=== PATIENT | female | born 1965 | race African-American/Black ===

== ENCOUNTER 2018-02-23 10:15 | Inpatient (IN) ==
[2018-02-23] MEDS ORDERED: Ondansetron 4 MG/2 ML VIAL IVP ONE (10:51)
[2018-02-23] MEDS ORDERED: *HR* FentaNYL (PF) 100 MCG/2 ML VIAL IVP ONE (10:51)
--- NOTE | 2018-02-23 11:07 | Emergency Department Note ---
Disposition Clinical Impression: Pancreatic mass Pancreatitis Qualifiers: Chronicity: acute Pancreatitis type: unspecified pancreatitis type Acute pancreatitis complication: unspecified Qualified Code(s): K85.90 - Acute pancreatitis without necrosis or infection, unspecified Disposition: Admitted As Inpatient Condition: Fair Time of Disposition: 12:42 General Adult HPI - General Chief complaint: ED Abdominal Pain Stated complaint: "abd pain,L flank pain" Time Seen by Provider: 02/23/18 10:45 Source: patient Limitations: no limitations Nursing Notes Reviewed: Yes Vital Signs Reviewed: Yes - History of Present Illness HPI Narrative: ED ATTESTATION NOTE: I examined this patient and my medical decision-making was reviewed with the Resident Physician/INSPECTOR FUEL HOSE/PA/Student. I have personally performed a face to face evaluation on this patient & I agree with the documented findings, disposition and treatment plan as described except to the extent set forth below. Patient was seen with emergency medicine resident Yazmin Johnson please see copy of her note for details of this encounter Briefly: Pain Scale: 3 - Related Data Home Medications Medication Instructions Recorded Confirmed Albuterol Sulfate [Ventolin Hfa] 2 puff IH Q4H PRN 11/01/16 12/22/16 Ergocalciferol (VITAMIN D2) 50,000 unit PO QWEEK 11/01/16 12/22/16 [Vitamin D2] Levothyroxine [Synthroid] 100 mcg PO 0630 11/01/16 12/22/16 Lisinopril [Zestril] 10 mg PO DAILY 11/01/16 12/22/16 Methocarbamol [Robaxin] 325 mg PO Q8HR 11/01/16 12/22/16 Ibuprofen [Motrin] 600 mg PO Q6HR PRN 12/22/16 12/22/16 Lidocaine Patch [Lidoderm 5% patch] 1 patch TP DAILY 12/22/16 12/22/16 Polyethylene Glycol 3350 [MiraLAX] 17 gm PO DAILY 12/22/16 12/22/16 Simvastatin [Zocor] 40 mg PO HS 12/22/16 12/22/16 Allergies Allergy/AdvReac Type Severity Reaction Status Date / Time Amoxicillin [From Augmentin] Allergy Rash Verified 12/22/16 07:13 clavulanic acid Allergy Rash Verified 12/22/16 07:13 [From Augmentin] morphine Allergy See Verified 02/23/18 12:40 Comments Past Medical History - Past Medical History Medical history: Reports: GERD, hyperlipidemia, hypertension, thyroid disease Surgical history: Reports: appendectomy, orthopedic, other Psychiatric history: Reports: anxiety, depression - Social History Smoking Status: Current every day smoker Smokeless Tobacco Status: No Alcohol use: Reports: none Drug use: Reports: none Physical Exam - General Limitations: no limitations General appearance: alert, in no apparent distress Course Vital Signs Temperature 98.4 F 02/23/18 10:24 Pulse Rate 85 02/23/18 10:24 Respiratory Rate 18 02/23/18 10:24 Blood Pressure 137/89 02/23/18 10:24 O2 Sat by Pulse Oximetry 97 02/23/18 10:24 Temperature 98.4 F 02/23/18 10:49 Pulse Rate 63 02/23/18 12:21 Respiratory Rate 16 02/23/18 12:21 Blood Pressure 151/93 02/23/18 12:21 O2 Sat by Pulse Oximetry 100 02/23/18 12:21 Oxygen Delivery Oxygen Delivery Room Air Medical Decision Making - Lab Data Result diagrams: 02/23/18 11:00 02/23/18 11:00 Lab Results 02/23/18 02/23/18 02/23/18 Range/Units 10:38 11:00 11:00 WBC 7.1 (4.3-11.1) K/mcL RBC 4.69 (3.82-4.97) M/mcL Hgb 14.1 (11.5-15.4) g/dL Hct 42.0 (35.3-44.9) % MCV 89.6 (83.0-100.0) fL MCH 30.1 (28.0-33.3) pg MCHC 33.6 (31.6-35.5) g/dL RDW 12.4 (11.5-14.5) % Plt Count 243 (140-400) K/mcL MPV 9.7 (9.4-12.4) fL Immature Gran % 0.3 (0-4) % Seg Neutrophils % 46.1 % Lymphocytes % 42.6 % Monocytes % 6.1 % Eosinophils % 3.8 % Basophils % 1.1 % Neutrophils # 3.3 (1.6-8.9) K/mcL Lymphocytes # 3.0 (0.6-4.6) K/mcL Monocytes # 0.4 (0.0-1.3) K/mcL Eosinophils # 0.3 (0.0-0.6) K/mcL Basophils # 0.1 (0.0-0.2) K/mcL Sodium 138 (136-145) mEq/L Potassium 3.5 (3.5-5.1) mEq/L Chloride 107 (98-107) mEq/L Carbon Dioxide 26 (23-29) mEq/L BUN 9 (6-20) mg/dL Creatinine 0.61 (0.60-1.20) mg/dL Est GFR ( Amer) > 60 (> 60) Est GFR (Non-Af Amer) > 60 (> 60) BUN/Creatinine Ratio 15 (6-26) Glucose 152 H (70-105) mg/dL Calculated Osmolality 288 (280-300) Calcium 8.6 (8.6-10.3) mg/dL Total Bilirubin 0.5 (0.3-1.0) mg/dL Direct Bilirubin 0.1 (0.0-0.2) mg/dL Indirect Bilirubin 0.4 (0.0-1.2) mg/dL AST 12 L (13-39) Units/L ALT 12 (7-52) Units/L Alkaline Phosphatase 112 H (34-104) Units/L Troponin I < 0.03 (< 0.04) ng/mL Serum Total Protein 7.1 (6.4-8.9) g/dL Albumin 3.9 (3.5-5.7) g/dL Globulin 3.2 (2.4-3.5) g/dL Albumin/Globulin Ratio 1.2 (1.1-2.2) Lipase 107 H (11-82) Units/L Urine Color Yellow (Yellow) Urine Clarity Hazy A (Clear) Urine pH 5.5 (5.0-8.0) pH Units Ur Specific [place] 1.014 (1.010-1.025) Urine Protein Negative (Neg-Trace) mg/dL Urine Glucose (UA) Normal (Normal) mg/dL Urine Ketones Negative (Negative) mg/dL Urine Blood Small H (Negative) Urine Nitrite Negative (Negative) Urine Bilirubin Negative (Negative) Urine Urobilinogen Normal (Normal) mg/dL Ur Leukocyte Esterase Negative (Negative) Urine Microscopic RBC 0-3 (0-3) per hpf Urine Microscopic WBC 3-5 H (0-3) per hpf Ur Squamous Epith Cells Many H (None-Few) per lpf Urine Bacteria Few (None-Few) per hpf Hyaline Casts None Seen (None-Few) per lpf Urine Mucus Moderate H (Few) Urine Yeast Few H (None Seen) per hpf Ur Culture Indicated? NO (NO)
[2018-02-23 11:17] LABS: Basophils # 0.1 K/mcL (0.0-0.2); Basophils % 1.1 %; Eosinophils # 0.3 K/mcL (0.0-0.6); Eosinophils % 3.8 %; Hemoglobin 14.1 g/dL (11.5-15.4); Immature Granulocytes % 0.3 % (0-4); Lymphocytes % 42.6 %; Mean Corpuscular HGB Conc 33.6 g/dL (31.6-35.5); Mean Corpuscular Hemoglobin 30.1 pg (28.0-33.3); Mean Corpuscular Volume 89.6 fL (83.0-100.0); Mean Platelet Volume 9.7 fL (9.4-12.4); Monocytes # 0.4 K/mcL (0.0-1.3); Monocytes % 6.1 %; Neutrophils # 3.3 K/mcL (1.6-8.9); Platelet Count 243 K/mcL (140-400); Red Blood Count 4.69 M/mcL (3.82-4.97); Red Cell Distribution Width 12.4 % (11.5-14.5); Segmented Neutrophils % 46.1 %
--- NOTE | 2018-02-23 11:17 | Emergency Department Note ---
Disposition Clinical Impression: Pancreatic mass Pancreatitis Qualifiers: Chronicity: acute Pancreatitis type: unspecified pancreatitis type Acute pancreatitis complication: unspecified Qualified Code(s): K85.90 - Acute pancreatitis without necrosis or infection, unspecified Disposition: Admitted As Inpatient Condition: Fair Referrals: Rahul Yo MD [Primary Care Provider] - Forms: ED Satisfaction Letter, Work/School Release General Adult HPI - General Chief complaint: ED Abdominal Pain Stated complaint: "abd pain,L flank pain" Time Seen by Provider: 02/23/18 10:45 Source: patient Mode of arrival: ambulatory Limitations: no limitations Nursing Notes Reviewed: Yes Vital Signs Reviewed: Yes - History of Present Illness HPI Narrative: 52-year-old female with significant past medical history of hypertension presenting to the emergency department chief complaint of left-sided abdominal pain. Patient states for the past year she has had worsening left-sided abdominal pain that radiates under her left breast and towards her epigastrium. She denies any vomiting but does disclose nausea. Patient denies any changes in her stool caliber but does state they have been darker than normal. Patient has had an appendectomy but no other abdominal surgeries. Colonoscopy 7 years ago multiple polyp removal but they were all noncancerous. Patient states today the pain is got too severe and decided to come in for further evaluation. Patient denies any fevers, chest pain or shortness of breath. Patient does disclose a 32 pound weight loss over the past few months. Pain Scale: 3 - Related Data Home Medications Medication Instructions Recorded Confirmed Albuterol Sulfate [Ventolin Hfa] 2 puff IH Q4H PRN 11/01/16 12/22/16 Ergocalciferol (VITAMIN D2) 50,000 unit PO QWEEK 11/01/16 12/22/16 [Vitamin D2] Levothyroxine [Synthroid] 100 mcg PO 0630 11/01/16 12/22/16 Lisinopril [Zestril] 10 mg PO DAILY 11/01/16 12/22/16 Methocarbamol [Robaxin] 325 mg PO Q8HR 11/01/16 12/22/16 Ibuprofen [Motrin] 600 mg PO Q6HR PRN 12/22/16 12/22/16 Lidocaine Patch [Lidoderm 5% patch] 1 patch TP DAILY 12/22/16 12/22/16 Polyethylene Glycol 3350 [MiraLAX] 17 gm PO DAILY 12/22/16 12/22/16 Simvastatin [Zocor] 40 mg PO HS 12/22/16 12/22/16 Allergies Allergy/AdvReac Type Severity Reaction Status Date / Time Amoxicillin [From Augmentin] Allergy Rash Verified 12/22/16 07:13 clavulanic acid Allergy Rash Verified 12/22/16 07:13 [From Augmentin] morphine Allergy Hives Verified 11/01/16 11:30 All systems ED: reviewed and negative except as stated. Constitutional: Reports: weight change. Denies: fever, chills Eyes: Reports: as per HPI ENT ED: Reports: as per HPI Cardiovascular: Denies: chest pain, palpitations, dyspnea on exertion Respiratory: Denies: cough, dyspnea, wheezes Gastrointestinal: Reports: abdominal pain, nausea. Denies: vomiting Genitourinary: Reports: as per HPI Musculoskeletal: Reports: as per HPI Integumentary: Reports: as per HPI Neurological: Denies: numbness, paresthesias Psychiatric: Reports: as per HPI Endocrine: Reports: as per HPI Hematological/Lymphatic: Reports: as per HPI Allergic/Immunologic: Reports: as per HPI Past Medical History - Past Medical History Attestation: Yes The following information was validated with the patient. Medical history: Reports: GERD, hyperlipidemia, hypertension, thyroid disease Surgical history: Reports: appendectomy, orthopedic, other Psychiatric history: Reports: anxiety, depression - Social History Smoking Status: Current every day smoker Smokeless Tobacco Status: No Alcohol use: Reports: none Drug use: Reports: none Physical Exam - General Limitations: no limitations General appearance: alert, in no apparent distress - Head Head exam: atraumatic, normocephalic, normal inspection - Eye Eye exam: Present: normal appearance. Absent: scleral icterus, conjunctival injection - ENT ENT exam: normal exam, mucous membranes moist - Neck Neck exam: Present: normal inspection, full ROM. Absent: tenderness, meningismus - Chest Chest inspection: Present: normal inspection, symmetric chest wall rise. Absent: tenderness, rash - Respiratory Respiratory exam: Present: normal lung sounds bilaterally. Absent: respiratory distress, wheezes - Cardiovascular Cardiovascular exam: Present: regular rate, normal rhythm, normal heart sounds - Abdominal Exam Abdominal exam: Present: soft, tenderness. Absent: distention, guarding, rebound, rigidity Abdominal tenderness: Present: LUQ, epigastrium, moderate - Extremities Exam Extremities exam: Present: normal inspection, full ROM - Neurological Exam Neurological exam: Present: alert, oriented X3 - Psychiatric Psychiatric exam: Present: normal affect, normal mood - Skin Skin exam: Present: warm, intact Course Course Narrative: 52-year-old female presenting to the emergency department with chief complaint of abdominal pain. Patient is alert and oriented 3 and hemodynamically stable. Physical exam shows tenderness to the left upper quadrant into the epigastrium. Otherwise physical exam is benign. At this time we will provide the patient with pain relief and Zofran. We will perform abdominal labs including CBC, CMP and lipase. We will also perform a CT of the abdomen and pelvis. Disposition pending results. Patient agrees with this plan. - Reevaluation(s) Reevaluation #1: Patient's laboratory analysis shows elevated lipase at 107. Otherwise labs unchanged from baseline. CT of abdomen and pelvis shows Inflammatory changes are seen surrounding the pancreatic body and tail likely related to acute pancreatitis. There is also a spiculated nodular density seen just along the undersurface of the pancreatic body, new from the previous examination in 2017, measuring 15.8 x 16.6 mm. This may represent an enlarged lymph node with adjacent inflammatory change, as a very small lymph node was noted in that same region on the previous study. Due to patient's symptoms and concern for new mass and pancreatitis will plan to admit her for further evaluation and workup. Patient remains alert and oriented 3 and hemodynamically stable. Patient agrees with this plan. I spoke with the hospitalist secondary history teacher Dr. Sumner who agrees to accept the patient at this time. Vital Signs Temperature 98.4 F 02/23/18 10:24 Pulse Rate 85 02/23/18 10:24 Respiratory Rate 18 02/23/18 10:24 Blood Pressure 137/89 02/23/18 10:24 O2 Sat by Pulse Oximetry 97 02/23/18 10:24 Temperature 98.4 F 02/23/18 10:49 Pulse Rate 85 02/23/18 10:49 Respiratory Rate 18 02/23/18 10:49 Blood Pressure 137/89 02/23/18 10:49 O2 Sat by Pulse Oximetry 97 02/23/18 10:49 Oxygen Delivery Oxygen Delivery Room Air Medical Decision Making - Lab Data Result diagrams: 02/23/18 11:00 02/23/18 11:00 Lab Results 02/23/18 02/23/18 02/23/18 Range/Units 10:38 11:00 11:00 WBC 7.1 (4.3-11.1) K/mcL RBC 4.69 (3.82-4.97) M/mcL Hgb 14.1 (11.5-15.4) g/dL Hct 42.0 (35.3-44.9) % MCV 89.6 (83.0-100.0) fL MCH 30.1 (28.0-33.3) pg MCHC 33.6 (31.6-35.5) g/dL RDW 12.4 (11.5-14.5) % Plt Count 243 (140-400) K/mcL MPV 9.7 (9.4-12.4) fL Immature Gran % 0.3 (0-4) % Seg Neutrophils % 46.1 % Lymphocytes % 42.6 % Monocytes % 6.1 % Eosinophils % 3.8 % Basophils % 1.1 % Neutrophils # 3.3 (1.6-8.9) K/mcL Lymphocytes # 3.0 (0.6-4.6) K/mcL Monocytes # 0.4 (0.0-1.3) K/mcL Eosinophils # 0.3 (0.0-0.6) K/mcL Basophils # 0.1 (0.0-0.2) K/mcL Sodium 138 (136-145) mEq/L Potassium 3.5 (3.5-5.1) mEq/L Chloride 107 (98-107) mEq/L Carbon Dioxide 26 (23-29) mEq/L BUN 9 (6-20) mg/dL Creatinine 0.61 (0.60-1.20) mg/dL Est GFR ( Amer) > 60 (> 60) Est GFR (Non-Af Amer) > 60 (> 60) BUN/Creatinine Ratio 15 (6-26) Glucose 152 H (70-105) mg/dL Calculated Osmolality 288 (280-300) Calcium 8.6 (8.6-10.3) mg/dL Total Bilirubin 0.5 (0.3-1.0) mg/dL Direct Bilirubin 0.1 (0.0-0.2) mg/dL Indirect Bilirubin 0.4 (0.0-1.2) mg/dL AST 12 L (13-39) Units/L ALT 12 (7-52) Units/L Alkaline Phosphatase 112 H (34-104) Units/L Troponin I < 0.03 (< 0.04) ng/mL Serum Total Protein 7.1 (6.4-8.9) g/dL Albumin 3.9 (3.5-5.7) g/dL Globulin 3.2 (2.4-3.5) g/dL Albumin/Globulin Ratio 1.2 (1.1-2.2) Lipase 107 H (11-82) Units/L Urine Color Yellow (Yellow) Urine Clarity Hazy A (Clear) Urine pH 5.5 (5.0-8.0) pH Units Ur Specific [place] 1.014 (1.010-1.025) Urine Protein Negative (Neg-Trace) mg/dL Urine Glucose (UA) Normal (Normal) mg/dL Urine Ketones Negative (Negative) mg/dL Urine Blood Small H (Negative) Urine Nitrite Negative (Negative) Urine Bilirubin Negative (Negative) Urine Urobilinogen Normal (Normal) mg/dL Ur Leukocyte Esterase Negative (Negative) Urine Microscopic RBC 0-3 (0-3) per hpf Urine Microscopic WBC 3-5 H (0-3) per hpf Ur Squamous Epith Cells Many H (None-Few) per lpf Urine Bacteria Few (None-Few) per hpf Hyaline Casts None Seen (None-Few) per lpf Urine Mucus Moderate H (Few) Urine Yeast Few H (None Seen) per hpf Ur Culture Indicated? NO (NO)
[2018-02-23 11:26] LABS: Bilirubin,Urine Negative (Negative); Blood,Urine Small (Negative); Color,Urine Yellow (Yellow); Glucose,Urine (UA) Normal (Normal); Ketones,Urine Negative (Negative); Leukocyte Esterase,Urine Negative (Negative); Nitrite,Urine Negative (Negative); PH,Urine 5.5 pH Units (5.0-8.0); Protein,Urine Negative (Neg-Trace); Specific Gravity,Urine 1.014 (1.010-1.025); Urobilinogen,Urine Normal (Normal)
[2018-02-23 11:28] LABS: Bacteria,Urine Few per hpf (None-Few); Hyaline Casts,Urine None Seen per lpf (None-Few); Squamous Epithelial Cell,Urine Many per lpf (None-Few)
[2018-02-23 11:30] LABS: Clarity,Urine Hazy (Clear)
[2018-02-23 11:34] LABS: Troponin I < 0.03 ng/mL (< 0.04)
[2018-02-23 11:41] LABS: Alanine Aminotransferase 12 Units/L (7-52); Albumin 3.9 g/dL (3.5-5.7); Albumin/Globulin Ratio 1.2 (1.1-2.2); Alkaline Phosphatase 112 Units/L (34-104); Aspartate Amino Transferase 12 Units/L (13-39); BUN/Creatinine Ratio 15 (6-26); Bilirubin,Direct 0.1 mg/dL (0.0-0.2); Bilirubin,Indirect 0.4 mg/dL (0.0-1.2); Bilirubin,Total 0.5 mg/dL (0.3-1.0); Blood Urea Nitrogen 9 mg/dL (6-20); Calcium 8.6 mg/dL (8.6-10.3); Carbon Dioxide 26 mEq/L (23-29); Chloride 107 mEq/L (98-107); Globulin 3.2 g/dL (2.4-3.5); Glucose 152 mg/dL (70-105); Lipase 107 Units/L (11-82); Osmolality,Calculated 288 (280-300); Potassium 3.5 mEq/L (3.5-5.1); Sodium 138 mEq/L (136-145); Total Protein 7.1 g/dL (6.4-8.9); eGFR For Non-African Americans > 60 (> 60)
[2018-02-23 11:43] LABS: Mucus,Urine Moderate (Few)
[2018-02-23 11:44] LABS: RBC,Urine 0-3 per hpf (0-3); Yeast,Urine Few per hpf (None Seen)
[2018-02-23] MEDS ORDERED: Naloxone 0.4 MG/ML INJ IVP PRN (12:59)
[2018-02-23] MEDS ORDERED: Acetaminophen 325 MG TABLET PO PRN (12:59)
[2018-02-23] MEDS ORDERED: *HR* FentaNYL (PF) 100 MCG/2 ML VIAL IVP PRN (13:01)
[2018-02-23] MEDS: 0.9 % Sodium Chloride 1,000 ML IVC SCH ×2 (13:29→23:26)
--- NOTE | 2018-02-23 13:57 | Internal Med History&Physical ---
Date of Encounter: 02/23/18 Time of Encounter: 13:51 Internal Medicine - H&P: HPI Chief complaint: Abdominal pain Admitted From: Emergency Dept Plans for Post Hospital Care: Home History of present illness: Ms. Mendez is a 52 year old female with known past medical history of hypertension, hyperlipidemia, COPD, hypothyroidism, anxiety and chronic tobacco dependence patient presented to ER with 2 weeks history of progressive worsening abdominal pain located at hypogatric, left lateral side and radiating towards RUQ region. Her abdominal pain is sharp in nature, 7/10 in severity, continuous in nature, and associated with some nausea. She denied any recent weight loss. She denied any Hemetemesis / melena. She had a further workup done in the emergency room, her lipase slightly elevated at 107. Her CT of abdomen showed acute pancreatitis as well as a spiculated nodular density seen just along the undersurface of pancreatic body measuring @ 15.8 x 16.6 mm Past Med Surg Social Fam HX - Past Medical History Medical history: GERD, hyperlipidemia, hypertension, thyroid disease Additional medical history: Grave's Disease Psychiatric history: anxiety, depression - Past Surgical History Surgical History: appendectomy, orthopedic, other Additional surgical history: iodine tx to thyroid. polyps removed - Social History Smoking Status: Current every day smoker Smokeless Tobacco Status: No Alcohol use: none Drug use: none - Family History Mother Hx Family Cancer: Yes (Rectal cancer) - Additional Family History Additional family history: Family hsitory reviewed and non contribuitory to current problem... Denied any pancreatic cancer in the family Internal Medicine - H&P: Meds Albuterol Sulfate [Ventolin Hfa] 2 puff IH Q4H PRN 11/01/16 [History] Ergocalciferol (VITAMIN D2) [Vitamin D2] 50,000 unit PO FR 11/01/16 [History] Levothyroxine [Synthroid] 100 mcg PO 0630 11/01/16 [History] Lisinopril [Zestril] 10 mg PO DAILY 11/01/16 [History] Methocarbamol [Robaxin] 325 mg PO Q8HR 11/01/16 [History] Ibuprofen [Motrin] 600 mg PO Q6HR PRN 12/22/16 [History] Simvastatin [Zocor] 40 mg PO HS 12/22/16 [History] ALPRAZolam [Xanax 0.25 MG Tablet] 0.25 mg PO BID PRN 02/23/18 [History] Buspirone HCl [Buspar] 10 mg PO BID 02/23/18 [History] Allergy/AdvReac Type Severity Reaction Status Date / Time Amoxicillin [From Augmentin] Allergy Rash Verified 12/22/16 07:13 clavulanic acid Allergy Rash Verified 12/22/16 07:13 [From Augmentin] morphine Allergy See Verified 02/23/18 12:40 Comments All Systems PM: A 10-system review of systems was performed and is negative for pertinent findings except as documented above in the HPI. Review of systems: All the systems are reviewed everything is benign except the systems and symptoms I mentioned in the history of present illness - Constitutional Vitals: Temp Pulse Resp BP Pulse Ox 98.4 F 63 16 151/93 100 02/23/18 10:49 02/23/18 12:21 02/23/18 12:21 02/23/18 12:21 02/23/18 12:21 General appearance: Present: cooperative, A&O X 3, no acute distress, answers questions appropriately Exam: See below - Head Head exam: Present: atraumatic, normal inspection - Neck Neck exam general surgery: Present: supple - Respiratory Respiratory exam: Present: decreased breath sounds. Absent: rales, respiratory distress, rhonchi, wheezes - Cardiovascular Cardiovascular exam: Present: RRR, +S1, +S2. Absent: tachycardia - GI/Abdominal GI/Abdominal exam: Present: normal bowel sounds, soft, tenderness (Mild tenderness around Pery umbilical and epigastric region). Absent: rebound, rigid - Extremities Exam Extremities exam: Absent: calf tenderness, pedal edema, tenderness - Back Exam Back exam: Absent: CVA tenderness (L), CVA tenderness (R) - Neurological Exam Neurological exam: Present: alert, oriented X3 - Psychiatric Psychiatric exam: Present: normal affect, normal mood - Skin Skin exam: Absent: rash Internal Med - H&P Results - Labs CBC & Chem 7: 02/23/18 11:00 02/23/18 11:00 Labs: Short CBC 02/23/18 Range/Units 11:00 WBC 7.1 (4.3-11.1) K/mcL Hgb 14.1 (11.5-15.4) g/dL Hct 42.0 (35.3-44.9) % Plt Count 243 (140-400) K/mcL Neutrophils # 3.3 (1.6-8.9) K/mcL BMP 02/23/18 11:00 Sodium 138 Potassium 3.5 Chloride 107 Carbon Dioxide 26 BUN 9 Creatinine 0.61 Glucose 152 H Calcium 8.6 Cardiac Enzymes 02/23/18 Range/Units 11:00 Troponin I < 0.03 (< 0.04) ng/mL Liver Function 02/23/18 Range/Units 11:00 Total Bilirubin 0.5 (0.3-1.0) mg/dL Direct Bilirubin 0.1 (0.0-0.2) mg/dL AST 12 L (13-39) Units/L ALT 12 (7-52) Units/L Alkaline Phosphatase 112 H (34-104) Units/L Albumin 3.9 (3.5-5.7) g/dL Urine 02/23/18 Range/Units 10:38 Urine Color Yellow (Yellow) Urine Clarity Hazy A (Clear) Urine pH 5.5 (5.0-8.0) pH Units Ur Specific [place] 1.014 (1.010-1.025) Urine Protein Negative (Neg-Trace) mg/dL Urine Glucose (UA) Normal (Normal) mg/dL - Impressions ITS Impressions Abdomen/Pelvis CT 02/23/18 10:51 IMPRESSION: Inflammatory changes are seen surrounding the pancreatic body and tail likely related to acute pancreatitis. There is also a spiculated nodular density seen just along the undersurface of the pancreatic body, new from the previous examination in 2017, measuring 15.8 x 16.6 mm. This may represent an enlarged lymph node with adjacent inflammatory change, as a very small lymph node was noted in that same region on the previous study. Recommend a short interval follow-up CT examination after treatment for re-evaluation. It would be best to perform that CT scan with contrast. No other acute process identified in the abdomen or pelvis. D/ / Mitch Brice MD / Mitch Brice MD Interpreting Provider: Mitch Brice MD - Assessment and plan (1) Pancreatitis Current Visit: Yes Status: Acute Assessment and plan: Place the patient into Med Surg for observation reviewed her CT and lipase clear liquid diet for now IV hydration continue symptomatic and supportive care unclear etiology will check lipid profile in the morning MRI of the abdomen ordered G.I. consult trend on lipase Qualifiers: Chronicity: acute Pancreatitis type: unspecified pancreatitis type Acute pancreatitis complication: unspecified Qualified Code(s): K85.90 - Acute pancreatitis without necrosis or infection, unspecified (2) Pancreatic mass Current Visit: Yes Status: Acute Assessment and plan: Reviewed CT of abdomen small lymph node noticed around the pancreatic head area which is new compared to previous CT G.I. consult of further evaluation also ordered MRI of the abdomen (3) Hypertension Current Visit: Yes Status: Chronic Assessment and plan: Stable with current home medications resumed home medications Qualifiers: Hypertension type: essential hypertension Qualified Code(s): I10 - [place] l (primary) hypertension (4) Hyperlipidemia Current Visit: Yes Status: Acute Assessment and plan: Resumed home medication Statin Qualifiers: Hyperlipidemia type: unspecified Qualified Code(s): E78.5 - Hyperlipidemia, unspecified (5) Anxiety Current Visit: Yes Status: Acute Assessment and plan: Resumed home meds and Xanax (6) COPD (chronic obstructive pulmonary disease) Current Visit: Yes Status: Acute Assessment and plan: Not in exacerbation continue home inhalers Qualifiers: COPD type: emphysema Emphysema type: unspecified Qualified Code(s): J43.9 - Emphysema, unspecified (7) Tobacco dependence Current Visit: Yes Status: Acute Assessment and plan: Counseled to quit smoking placed on nicotine patch - Time Spent With Patient Total time spent is greater than 50% in coordination of care (as documented) at patient's floor/unit and/or counseling patient:
[2018-02-23] MEDS: Nicotine 14 MG PATCH.TD24 TD SCH (16:23)
[2018-02-23] MEDS ORDERED: D5% in Water 1,000 ML IVC PRN (18:50)
[2018-02-23] MEDS ORDERED: Dextrose Gel 15 GM/37.5 ML TUBE PO PRN ×2 (18:50)
[2018-02-23] MEDS ORDERED: *HR* Dextrose 50 % in Water (Syg) 50 ML SYRINGE IVP PRN (18:50)
[2018-02-23] MEDS ORDERED: Methocarbamol 750 MG TABLET PO PRN (19:50)
[2018-02-23] MEDS: Insulin LISPRO 300 UNITS/3 ML VIAL SQ SCH (20:44)
[2018-02-23] MEDS: Methocarbamol 750 MG TABLET PO PRN (20:47)
[2018-02-24] MEDS ORDERED: Methocarbamol 750 MG TABLET PO SCH
[2018-02-24 04:39] LABS: Basophils # 0.1 K/mcL (0.0-0.2); Basophils % 1.2 %; Eosinophils # 0.3 K/mcL (0.0-0.6); Eosinophils % 3.9 %; Hematocrit 40.1 % (35.3-44.9); Hemoglobin 13.3 g/dL (11.5-15.4); Immature Granulocytes % 0.1 % (0-4); Lymphocytes # 3.5 K/mcL (0.6-4.6); Mean Corpuscular HGB Conc 33.2 g/dL (31.6-35.5); Mean Corpuscular Hemoglobin 30.2 pg (28.0-33.3); Mean Corpuscular Volume 91.1 fL (83.0-100.0); Monocytes # 0.5 K/mcL (0.0-1.3); Monocytes % 6.8 %; Neutrophils # 3.3 K/mcL (1.6-8.9); Platelet Count 232 K/mcL (140-400); Red Cell Distribution Width 12.4 % (11.5-14.5)
[2018-02-24 04:47] LABS: Alanine Aminotransferase 11 Units/L (7-52); Albumin 3.5 g/dL (3.5-5.7); Albumin/Globulin Ratio 1.2 (1.1-2.2); Alkaline Phosphatase 100 Units/L (34-104); Aspartate Amino Transferase 12 Units/L (13-39); BUN/Creatinine Ratio 10 (6-26); Bilirubin,Total 0.6 mg/dL (0.3-1.0); Blood Urea Nitrogen 6 mg/dL (6-20); Calcium 8.1 mg/dL (8.6-10.3); Carbon Dioxide 25 mEq/L (23-29); Chloride 108 mEq/L (98-107); Chol/HDL Ratio 5.8 (0-4.9); Cholesterol 139 mg/dL (< 200); Globulin 2.9 g/dL (2.4-3.5); Glucose 149 mg/dL (70-105); HDL Cholesterol 24 mg/dL (40-59); LDL Cholesterol,Calculated 91 mg/dL (0-99); Magnesium 1.8 mg/dL (1.6-2.6); Osmolality,Calculated 286 (280-300); Potassium 3.5 mEq/L (3.5-5.1); Sodium 138 mEq/L (136-145); Total Protein 6.4 g/dL (6.4-8.9); Triglycerides 122 mg/dL (< 150); eGFR For Non-African Americans > 60 (> 60)
[2018-02-24] MEDS: Methocarbamol 750 MG TABLET PO PRN ×2 (05:49→18:04)
[2018-02-24] MEDS: *HR* Heparin 5,000 UNIT/ML VIAL SQ SCH ×2 (05:51→18:05)
[2018-02-24] MEDS: Insulin LISPRO 300 UNITS/3 ML VIAL SQ SCH ×3 (09:14→17:08)
[2018-02-24] MEDS: Nicotine 14 MG PATCH.TD24 TD SCH (09:20)
--- NOTE | 2018-02-24 10:39 | Internal Med Progress Note ---
Hospitalist Progress Note - Encounter Date of Encounter: 02/24/18 Time of Encounter: 10:37 - Subjective Interval History: Seen and examined at bedside today. Reports that nausea has resolved. However, she still continued to have abdominal pain in the epigastrium radiating to the right left upper quadrant. She is able to tolerate a clear liquid diet this morning. - Exam Vitals: Temp Pulse Resp BP Pulse Ox 98.1 F 73 17 156/79 96 02/24/18 07:21 02/24/18 07:21 02/24/18 07:21 02/24/18 07:21 02/24/18 07:21 Exam: PHYSICAL EXAMINATION: GENERAL: The patient obese -[place] female who is alert and oriented 3 no distress HEENT: Head is normocephalic and atraumatic. Extraocular muscles are intact. Pupils are equal, round, and reactive to light and accommodation. NECK: Supple. No carotid bruits. No lymphadenopathy or thyromegaly. LUNGS: Clear to auscultation B/L AP and L. HEART: Regular rate and rhythm, S1, S2 without murmur. ABDOMEN: Soft, and nondistended. Positive bowel sounds. No hepatosplenomegaly was noted. Tenderness along left upper quadrant and below left breast. EXTREMITIES: Without any cyanosis, clubbing, rash, lesions or edema. NEUROLOGIC: Cranial nerves II through XII are grossly intact. PSYCHIATRIC: Appropriate affect, denies SI/HI, without agitation or anxiety SKIN: No ulceration or induration present. - Assessment and Plan (1) Pancreatitis Current Visit: Yes Status: Acute Assessment and Plan: Place the patient into Med Surg for observation reviewed her CT and lipase Continue clear liquid diet for now Continue IV hydration Continue to treat nausea when necessary continue symptomatic and supportive care unclear etiology will check lipid profile in the morning MRI of the abdomen pending completion G.I. consult trend on lipase; initial lipase of 107, repeat 114, continue to trend (2) Pancreatic mass Current Visit: Yes Status: Acute Assessment and Plan: Reviewed CT of abdomen small lymph node noticed around the pancreatic head area Consider reactionary lymph node versus mass However,this is new compared to previous CT She does report a 20 pound weight loss over the course of 6-8 weeks as well as night sweats and nausea/vomiting G.I. consult of further evaluation also ordered MRI of the abdomen (3) Hypertension Current Visit: Yes Status: Chronic Assessment and Plan: Stable with current home medications Continue anti-HTN meds and monitor (4) Hyperlipidemia Current Visit: Yes Status: Acute Assessment and Plan: Continue statin (5) Anxiety Current Visit: Yes Status: Acute Assessment and Plan: Continuing anxiolytics (6) COPD (chronic obstructive pulmonary disease) Current Visit: Yes Status: Acute Assessment and Plan: Per history, Not in exacerbation continue home inhalers (7) Tobacco dependence Current Visit: Yes Status: Acute Assessment and Plan: Thoroughly discussed tobacco cessation DVT Prophylaxis: SC heparin - Time Spent with Patient Total time spent is greater than 50% in coordination of care (as documented) at patient's floor/unit and/or counseling patient: less than 15 minutes Plan of Care Discussed with: patient Internal Medicine: Result - Labs CBC & Chem 7: 02/24/18 03:57 02/24/18 03:57 Labs: Short CBC 02/23/18 02/24/18 Range/Units 11:00 03:57 WBC 7.1 7.7 (4.3-11.1) K/mcL Hgb 14.1 13.3 (11.5-15.4) g/dL Hct 42.0 40.1 (35.3-44.9) % Plt Count 243 232 (140-400) K/mcL Neutrophils # 3.3 3.3 (1.6-8.9) K/mcL BMP 02/23/18 02/24/18 11:00 03:57 Sodium 138 138 Potassium 3.5 3.5 Chloride 107 108 H Carbon Dioxide 26 25 BUN 9 6 Creatinine 0.61 0.58 L Glucose 152 H 149 H Calcium 8.6 8.1 L Cardiac Enzymes 02/23/18 Range/Units 11:00 Troponin I < 0.03 (< 0.04) ng/mL Liver Function 02/23/18 02/24/18 Range/Units 11:00 03:57 Total Bilirubin 0.5 0.6 (0.3-1.0) mg/dL Direct Bilirubin 0.1 (0.0-0.2) mg/dL AST 12 L 12 L (13-39) Units/L ALT 12 11 (7-52) Units/L Alkaline Phosphatase 112 H 100 (34-104) Units/L Albumin 3.9 3.5 (3.5-5.7) g/dL Urine 02/23/18 Range/Units 10:38 Urine Color Yellow (Yellow) Urine Clarity Hazy A (Clear) Urine pH 5.5 (5.0-8.0) pH Units Ur Specific [place] 1.014 (1.010-1.025) Urine Protein Negative (Neg-Trace) mg/dL Urine Glucose (UA) Normal (Normal) mg/dL - Impressions Impressions Abdomen/Pelvis CT 02/23/18 10:51 IMPRESSION: Inflammatory changes are seen surrounding the pancreatic body and tail likely related to acute pancreatitis. There is also a spiculated nodular density seen just along the undersurface of the pancreatic body, new from the previous examination in 2017, measuring 15.8 x 16.6 mm. This may represent an enlarged lymph node with adjacent inflammatory change, as a very small lymph node was noted in that same region on the previous study. Recommend a short interval follow-up CT examination after treatment for re-evaluation. It would be best to perform that CT scan with contrast. No other acute process identified in the abdomen or pelvis. D/ / Mitch Brice MD / Mitch Brice MD Interpreting Provider: Mitch Brice MD Consult Discharge Plan - Plan [facility] [place] [Primary Care Provider[facility] - (Please call [phone] to schedule follow up appointment for 7-10 days from date of discharge. ) (1) Pancreatitis Qualifiers: Chronicity: acute Pancreatitis type: unspecified pancreatitis type Acute pancreatitis complication: unspecified Qualified Code(s): K85.90 - Acute pancr eatitis without necrosis or infection, unspecified (3) Hypertension Qualifiers: Hypertension type: essential hypertension Qualified Code(s): I10 - Essential (primary) hypertension (4) Hyperlipidemia Qualifiers: Hyperlipidemia type: unspecified Qualified Code(s): E78.5 - Hyperlipidemia, unspecified (6) COPD (chronic obstructive pulmonary disease) Qualifiers: COPD type: emphysema Emphysema type: unspecified Qualified Code(s): J43.9 - Emphysema, unspecified
[2018-02-24] MEDS: *HR* OxyCODONE Immed Rel 5 MG TABLET PO PRN ×2 (13:39→20:30)
[2018-02-24] MEDS: ALPRAZolam 0.25 MG TABLET PO PRN (18:05)
[2018-02-24] MEDS ORDERED: Ondansetron 4 MG/2 ML VIAL IVP ONE (21:09)
[2018-02-25] MEDS: Insulin LISPRO 300 UNITS/3 ML VIAL SQ SCH ×5 (00:17→22:37)
[2018-02-25] MEDS: *HR* Heparin 5,000 UNIT/ML VIAL SQ SCH ×2 (05:26→17:43)
[2018-02-25] MEDS: Nicotine 14 MG PATCH.TD24 TD SCH (09:24)
[2018-02-25] MEDS: *HR* OxyCODONE Immed Rel 5 MG TABLET PO PRN ×2 (09:32→22:37)
[2018-02-25 09:57] LABS: Hematocrit 41.1 % (35.3-44.9); Hemoglobin 14.2 g/dL (11.5-15.4); Mean Corpuscular HGB Conc 34.5 g/dL (31.6-35.5); Mean Corpuscular Hemoglobin 30.2 pg (28.0-33.3); Mean Corpuscular Volume 87.4 fL (83.0-100.0); Mean Platelet Volume 9.9 fL (9.4-12.4); Platelet Count 238 K/mcL (140-400); Red Cell Distribution Width 12.2 % (11.5-14.5)
[2018-02-25 10:16] LABS: BUN/Creatinine Ratio 10 (6-26); Blood Urea Nitrogen 6 mg/dL (6-20); Calcium 8.7 mg/dL (8.6-10.3); Carbon Dioxide 24 mEq/L (23-29); Chloride 106 mEq/L (98-107); Glucose 127 mg/dL (70-105); Osmolality,Calculated 283 (280-300); Potassium 3.8 mEq/L (3.5-5.1); Sodium 137 mEq/L (136-145); eGFR For Non-African Americans > 60 (> 60)
--- NOTE | 2018-02-25 11:28 | Internal Med Progress Note ---
Hospitalist Progress Note - Encounter Date of Encounter: 02/25/18 Time of Encounter: 11:23 - Subjective Interval History: Seen and examined at bedside today. Reports that nausea and vomiting have resolved. Abdominal pain persists but is improving. Increase to regular diet. - Exam Vitals: Temp Pulse Resp BP Pulse Ox 98.2 F 71 17 117/69 94 02/25/18 07:14 02/25/18 07:14 02/25/18 07:14 02/25/18 07:14 02/25/18 07:14 Exam: PHYSICAL EXAMINATION: GENERAL: The patient obese -Maced[place] female who is alert and oriented 3 no distress HEENT: Head is normocephalic and atraumatic. Extraocular muscles are intact. Pupils are equal, round, and reactive to light and accommodation. NECK: Supple. No carotid bruits. No lymphadenopathy or thyromegaly. LUNGS: Clear to auscultation B/L AP and L. HEART: Regular rate and rhythm, S1, S2 without murmur, rubs or gallops ABDOMEN: Soft, and nondistended. Positive bowel sounds. No hepatosplenomegaly was noted. Tenderness along left upper quadrant persists but is improving. EXTREMITIES: Without any cyanosis, clubbing, rash, lesions or edema. NEUROLOGIC: Cranial nerves II through XII are grossly intact. PSYCHIATRIC: Appropriate affect, denies SI/HI, without agitation or anxiety SKIN: No ulceration or induration present. - Assessment and Plan (1) Pancreatitis Current Visit: Yes Status: Acute Assessment and Plan: Place the patient into Med Surg for observation reviewed her CT and lipase Continue clear liquid diet for now Continue IV hydration Continue to treat nausea when necessary continue symptomatic and supportive care unclear etiology will check lipid profile in the morning MRI of the abdomen pending completion G.I. consult trend on lipase; initial lipase of 107, repeat 114, continue to trend 02/25/18--N/V has resolved; tolerating regular diet. Abdominal pain improving. GI to see tomorrow for evaluation of suspicious findings on MR abdomen (2) Pancreatic mass Current Visit: Yes Status: Acute Assessment and Plan: Reviewed CT of abdomen small lymph node noticed around the pancreatic head area Consider reactionary lymph node versus mass However,this is new compared to previous CT She does report a 20 pound weight loss over the course of 6-8 weeks as well as night sweats and nausea/vomiting G.I. consult of further evaluation MR abdomen-suspicious for adenocarcinoma . Acute pancreatitis appears isolated to the pancreatic tail. 2. 2.2 cm x 2.1 cm x 3.1 cm lesion in the pancreatic tail with suspected partial delayed enhancement and at least minimal cystic change, suspicious for adenocarcinoma. Pseudocyst is an additional consideration. Consider biopsy or very short-term follow-up pancreas protocol CT. 3. 1.9 cm x 1.5 cm x 1.9 cm suspected mesenteric lymph node with parenchymal hyperenhancement and central necrosis, accounting for the finding noted on CT. The appearance is worrisome for metastatic lymphadenopathy given the above finding, although pseudocyst is an additional consideration. (3) Hypertension Current Visit: Yes Status: Chronic Assessment and Plan: Stable with current home medications Continue anti-HTN meds and monitor (4) Hyperlipidemia Current Visit: Yes Status: Acute Assessment and Plan: Continue statin (5) Anxiety Current Visit: Yes Status: Acute Assessment and Plan: Continuing anxiolytics (6) COPD (chronic obstructive pulmonary disease) Current Visit: Yes Status: Acute Assessment and Plan: Per history, Not in exacerbation resting comfortably on room air continue home inhalers (7) Tobacco dependence Current Visit: Yes Status: Acute Assessment and Plan: Strongly encouraged tobacco cessation DVT Prophylaxis: SC heparin - Time Spent with Patient Total time spent is greater than 50% in coordination of care (as documented) at patient's floor/unit and/or counseling patient: less than 15 minutes Plan of Care Discussed with: patient Internal Medicine: Result - Labs CBC & Chem 7: 02/25/18 09:26 02/25/18 09:26 Labs: Short CBC 02/25/18 Range/Units 09:26 WBC 8.2 (4.3-11.1) K/mcL Hgb 14.2 (11.5-15.4) g/dL Hct 41.1 (35.3-44.9) % Plt Count 238 (140-400) K/mcL BMP 02/25/18 09:26 Sodium 137 Potassium 3.8 Chloride 106 Carbon Dioxide 24 BUN 6 Creatinine 0.59 L Glucose 127 H Calcium 8.7 - Impressions Impressions Abdomen MRI 02/24/18 13:49 IMPRESSION: 1. Acute pancreatitis appears isolated to the pancreatic tail. 2. 2.2 cm x 2.1 cm x 3.1 cm lesion in the pancreatic tail with suspected partial delayed enhancement and at least minimal cystic change, suspicious for adenocarcinoma. Pseudocyst is an additional consideration. Consider biopsy or very short-term follow-up pancreas protocol CT. 3. 1.9 cm x 1.5 cm x 1.9 cm suspected mesenteric lymph node with parenchymal hyperenhancement and central necrosis, accounting for the finding noted on CT. The appearance is worrisome for metastatic lymphadenopathy given the above finding, although pseudocyst is an additional consideration. D/ / Nasim King MD / Nasim King MD Interpreting Provider: Nasim King MD Consult Discharge Plan - Plan [facility] [place] [[place] Care Provider] - (Please call [phone] to schedule follow up appointment for 7-10 days from date of discharge. ) (1) Pancreatitis Qualifiers: Chronicity: acute Pancreatitis type: unspecified pancreatitis type Acute pancreatitis complication: unspecified Qualified Code(s): K85.90 - Acute pancreatitis without necrosis or infection, unspecified (3) Hypertension Qualifiers: Hypertension type: essential hypertension Qualified Code(s): I10 - Essential (primary) hypertension (4) Hyperlipidemia Qualifiers: Hyperlipidemia type: unspecified Qualified Code(s): E78.5 - Hyperlipidemia, unspecified (6) COPD (chronic obstructive pulmonary disease) Qualifiers: COPD type: emphysema Emphysema type: unspecified Qualified Code(s): J43.9 - Emphysema, unspecified
[2018-02-25] MEDS: Methocarbamol 750 MG TABLET PO PRN (16:24)
[2018-02-25] MEDS: ALPRAZolam 0.25 MG TABLET PO PRN (16:24)
[2018-02-26] MEDS: *HR* OxyCODONE Immed Rel 5 MG TABLET PO PRN ×2 (04:47→12:08)
[2018-02-26 04:59] LABS: Hematocrit 40.8 % (35.3-44.9); Hemoglobin 14.1 g/dL (11.5-15.4); Mean Corpuscular HGB Conc 34.6 g/dL (31.6-35.5); Mean Corpuscular Hemoglobin 30.5 pg (28.0-33.3); Mean Corpuscular Volume 88.1 fL (83.0-100.0); Mean Platelet Volume 10.2 fL (9.4-12.4); Platelet Count 241 K/mcL (140-400); Red Blood Count 4.63 M/mcL (3.82-4.97); Red Cell Distribution Width 12.3 % (11.5-14.5)
[2018-02-26 05:17] LABS: BUN/Creatinine Ratio 13 (6-26); Blood Urea Nitrogen 8 mg/dL (6-20); Calcium 8.7 mg/dL (8.6-10.3); Carbon Dioxide 25 mEq/L (23-29); Chloride 106 mEq/L (98-107); Glucose 121 mg/dL (70-105); Osmolality,Calculated 286 (280-300); Potassium 3.3 mEq/L (3.5-5.1); Sodium 138 mEq/L (136-145); eGFR For Non-African Americans > 60 (> 60)
[2018-02-26] MEDS: *HR* Heparin 5,000 UNIT/ML VIAL SQ SCH (05:37)
[2018-02-26 07:41] VITALS: BP 144/78
[2018-02-26] MEDS: Insulin LISPRO 300 UNITS/3 ML VIAL SQ SCH (07:54)
[2018-02-26] MEDS: Nicotine 14 MG PATCH.TD24 TD SCH (07:55)
[2018-02-26] MEDS: Methocarbamol 750 MG TABLET PO PRN (08:04)
[2018-02-26] MEDS: ALPRAZolam 0.25 MG TABLET PO PRN (08:05)
--- NOTE | 2018-02-26 09:15 | Discharge Summary ---
- NOTES TO OUTPATIENT PROVIDER Notes to Outpatient Provider: MRI findings with mass on pancreas suspicious for possible adenocarcinoma. The patient has had greater than 20 pounds unexpected weight loss, abdominal pain and chronic nausea for greater than 2 months. She is to have outpatient follow-up with GI for further testing and imaging. Please ensure outpatient follow-up. I have spoken with GI prior to discharge who will set up appointment. CEA and CA 19 pending at time of D/C. Please follow and reported abnormalities to GI Date of Encounter: 02/26/18 Time of Encounter: 09:13 - Discharge Diagnosis (1) Pancreatitis Priority: Primary Status: Acute Assessment and Plan: Nausea and abdominal pain persistent However, patient able to tolerate regular diet will have outpatient follow-up with GI Qualifiers: Chronicity: acute Pancreatitis type: unspecified pancreatitis type Acute pancreatitis complication: unspecified Qualified Code(s): K85.90 - Acute pancreatitis without necrosis or infection, unspecified (2) Pancreatic mass Priority: Secondary Status: Acute Assessment and Plan: Pancreatic mass identified on CT abdomen and MR abdomen Suspicious for adenocarcinoma Given greater than 20 pound weight loss, nausea and abdominal brain greater than 2 months patient needs further evaluation GI seeing in consultation throughout stay; GI to schedule outpatient follow-up for further evaluation and imaging (3) Hypertension Priority: Secondary Status: Chronic Qualifiers: Hypertension type: essential hypertension Qualified Code(s): I10 - Essential (primary) hypertension (4) Hyperlipidemia Priority: Secondary Status: Acute Qualifiers: Hyperlipidemia type: unspecified Qualified Code(s): E78.5 - Hyperlipidemia, unspecified (5) Anxiety Priority: Secondary Status: Acute (6) COPD (chronic obstructive pulmonary disease) Priority: Secondary Status: Acute Qualifiers: COPD type: emphysema Emphysema type: unspecified Qualified Code(s): J43.9 - Emphysema, unspecified (7) Tobacco dependence Priority: Secondary Status: Acute Hospital course: Ms. Mendez is a 52 year old female who presented with nausea and a 2 month history of abdominal pain, 20 pound weight loss and night sweats. CT imaging of the abdomen showed inflammation of the pancreas as well as a suspicious pancreatic mass. MR abdomen confirms the same; suspicious for adenocarcinoma versus cyst. Etiology unclear at this time. Gastroenterology continuing to follow. She was treated for acute pancreatitis and was made nothing by mouth and treated with IV fluids. Abdominal pain and nausea persisted however, patient able to tolerate regular diet. Discussed case with gastroenterology who agrees patient is suitable for discharge at this time. She has been instructed to follow a low-fat diet. She will be sent home with oral sublingual Zofran to assist with nausea. She is instructed to follow-up with PCP with 1 week of discharge. Gastroenterology making follow-up appointment for patient prior to discharge. CEA and CA 19 pending at time of discharge. Patient aware of all findings and not aware of need to follow up with PCP and GI. Discharge discussed with: patient, nurse, analysis consultant - Time Spent with Patient Total time spent providing and/or coordinating discharge services: Less than 30 minutes - Discharge Medications Home Medications: Albuterol Sulfate [Ventolin Hfa] 2 puff IH Q4H PRN 11/01/16 [History] Ergocalciferol (VITAMIN D2) [Vitamin D2] 50,000 unit PO FR 11/01/16 [History] Levothyroxine [Synthroid] 100 mcg PO 0630 11/01/16 [History] Lisinopril [Zestril] 10 mg PO DAILY 11/01/16 [History] Methocarbamol [Robaxin] 325 mg PO Q8HR 11/01/16 [History] Ibuprofen [Motrin] 600 mg PO Q6HR PRN 12/22/16 [History] Simvastatin [Zocor] 40 mg PO HS PRN 12/22/16 [History] ALPRAZolam [Xanax 0.25 MG Tablet] 0.25 mg PO BID 02/23/18 [History] Buspirone HCl [Buspar] 10 mg PO BID 02/23/18 [History] Ondansetron ODT [Zofran ODT] 4 mg SL Q6HR PRN 15 Days #45 tab.rapdis 02/26/18 [Rx] Allergies/Adverse Reactions: Allergy/AdvReac Type Severity Reaction Status Date / Time Amoxicillin [From Augmentin] Allergy Rash Verified 12/22/16 07:13 clavulanic acid Allergy Rash Verified 12/22/16 07:13 [From Augmentin] morphine Allergy See Verified 02/23/18 12:40 Comments Date of admission: 02/24/18 16:38 Primary care physician: Rahul Yo MD Consults: 02/23/18 13:02 Consult to Gastroenterology [CONS] Routine Consulting Provider: [facility] [place] Reason for Consult: acute pancreatitis Time Notified: 13:03 Call Completed: Yes Discharging clinician: Vazquez Mendoza Anticipated date of discharge: 02/26/18 - Constitutional Vitals: Temp Pulse Resp BP Pulse Ox 97.8 F 64 16 144/78 96 02/26/18 07:36 02/26/18 07:36 02/26/18 07:36 02/26/18 07:36 02/26/18 07:36 General appearance: Present: cooperative, A&O X 3, no acute distress, answers questions appropriately Exam: PHYSICAL EXAMINATION: GENERAL: The patient obese -Bangl[place] female who is alert and oriented 3 no distress HEENT: Head is normocephalic and atraumatic. Extraocular muscles are intact. Pupils are equal, round, and reactive to light and accommodation. NECK: Supple. No carotid bruits. No lymphadenopathy or thyromegaly. LUNGS: Clear to auscultation B/L AP and L. HEART: Regular rate and rhythm, S1, S2 without murmur, rubs or gallops ABDOMEN: Soft, and nondistended. Positive bowel sounds. No hepatosplenomegaly was noted. Tenderness along the epigastrium and left upper quadrant persists but is improving. EXTREMITIES: Without any cyanosis, clubbing, rash, lesions or edema. NEUROLOGIC: Cranial nerves II through XII are grossly intact. PSYCHIATRIC: Appropriate affect, denies SI/HI, without agitation or anxiety SKIN: No ulceration or induration present. - Patient Status Disposition: Home, Self-Care Condition: Fair Functional capacity at discharge: independent ambulation Overall status at discharge: patient is not back to baseline (Still having abdominal pain and nausea however able to tolerate a regular diet) - Discharge Instructions Instructions: Pancreatitis (DC) Follow Up With: Rahul pittman MD [Primary Care Provider] - (Please call [phone] to schedule follow up appointment for 7-10 days from date of discharge. ) - Diet and Activity Activity: increase activity as tolerated, resume usual activities as tolerated Diet: diabetic diet, low fat, low cholesterol, low salt diet
--- NOTE | 2018-02-26 10:02 | Gastroenterology Consult Note ---
Date of Encounter: 02/26/18 Time of Encounter: 09:30 - Assessment and plan (1) Pancreatic mass Current Visit: Yes Status: Acute Assessment and plan: Incidental mass on CT Abd/Pelvis and MRI suspicious of pancreatic adenocarcinoma (2.2 x 2.1 x 3.1) Pt has no family hx of pancreatic cancer Plan: CEA and CA 19-9 levels ordered Pt f/u with GI in outpatient setting for further management. Pt has seen Dr. Willoughby in the past and would like to resume care with him. (2) Pancreatitis Current Visit: Yes Status: Acute Assessment and plan: Pt presented with 3 weeks of cramping abdominal pain and constipation. Elevated lipase Pt does not use alcohol but has hx of tobacco use Pt treated with IV fluids and pain management Pt reports improvement in nausea and pain and has progressed to solid foods Plan: Discharge pt on normal diet, advised pt to stay away from fatty foods Qualifiers: Chronicity: acute Pancreatitis type: unspecified pancreatitis type Acute pancreatitis complication: unspecified Qualified Code(s): K85.90 - Acute pancreatitis without necrosis or infection, unspecified - Time Spent With Patient Total time spent is greater than 50% in coordination of care (as documented) at patient's floor/unit and/or counseling patient: GI History of Present Illness - Data of Consult Consult date: 02/26/18 Requesting Physician: Edison Huynh - Consult Narrative Reason for consult: Pancreatic Mass History of present illness: Ms. Mendez is a 52 year old female originally presenting to the ED with acute pancreatitis. She primarily has been noting cramping LLQ abdominal pain radiating to her lower back for the past 3 weeks. She has felt nauseous but has not vomited at any point. Pt has additionally been constipated for 4 days prior to admission. Pt was dx with acute pancreatitis. She has been treated with pain management and fluids and has been progressing well. Pt has tolerated solid foods today and is scheduled for discharge soon. Throughout pt stay CT and MRI of Abd/Pelvis were suspicious of a pancreatic mass. Pt has no family hx of pancreatic cancer. Colonoscopy: 7 years ago EGD: Within past 10 years, pt was dilated due to [place] Past Med Surg Social Fam HX - Past Medical History Medical history: GERD, hyperlipidemia, hypertension, thyroid disease Additional medical history: Grave's Disease Psychiatric history: anxiety, depression - Past Surgical History Surgical History: appendectomy, orthopedic, other Additional surgical history: iodine tx to thyroid. polyps removed - Social History Smoking Status: Current every day smoker Smokeless Tobacco Status: No Alcohol use: none Drug use: none - Family History Mother Living Status: Still Living Hx Family Cardiac Disorders: Yes (cardiac stents) Hx Family Cancer: No (rectal cancer) Hx Family Endocrine Disorder: Yes (DM) Father Living Status: Hx Family Genitourinary Disorders: Yes (kidney disease) Hx Family Endocrine Disorder: Yes (DM) All systems PM: reviewed and no additional remarkable complaints except as stated - Gastrointestinal Gastrointestinal: Present: abdominal pain, nausea. Absent: coffee ground emesi s, hematemesis, hematochezia, melena, vomiting - Constitutional Constitutional: as per HPI, weight loss - Cardiovascular Cardiovascular ROS: Present: as per HPI - Respiratory Respiratory IM: Present: as per HPI - Neurological ROS Neurological GI: Present: as per HPI - Musculoskeletal Musculoskeletal ROS GI: Present: back pain - Psychiatric ROS Psychiatric GI: Present: as per HPI - Endocrine Endocrine IM: Present: as per HPI - Constitutional Vitals: Temp Pulse Resp BP Pulse Ox 97.8 F 64 16 144/78 96 02/26/18 07:36 02/26/18 07:36 02/26/18 07:36 02/26/18 07:36 02/26/18 07:36 - Head Head exam: Present: normocephalic - Respiratory Respiratory exam: Present: CTAB - Cardiovascular Cardiovascular exam: Present: RRR, +S1, +S2. Absent: diastolic murmur, gallop, systolic murmur - GI/Abdominal GI/Abdominal exam: Present: normal bowel sounds, soft, no peritoneal signs. Absent: firm, hepatomegaly - Extremities Exam Extremities exam: Present: normal inspection - Neurological Exam Neurological exam: Present: alert, altered, oriented X3 - Psychiatric Psychiatric exam: Present: normal affect, normal mood - Skin Skin exam: Present: dry, intact Results - Labs CBC & Chem 7: 02/26/18 03:19 02/26/18 03:19 Labs: Last Result Calcium 8.7 mg/dL (8.6-10.3) 02/26/18 03:19 Troponin I < 0.03 ng/mL (< 0.04) 02/23/18 11:00 Triglycerides 122 mg/dL (< 150) 02/24/18 03:57 Entire Visit Hgb 14.1 g/dL (11.5-15.4) 02/26/18 03:19 Hct 40.8 % (35.3-44.9) 02/26/18 03:19 Total Bilirubin 0.6 mg/dL (0.3-1.0) 02/24/18 03:57 AST 12 Units/L (13-39) L 02/24/18 03:57 ALT 11 Units/L (7-52) 02/24/18 03:57 Amylase 72 Units/L (29-103) 02/23/18 14:04 Lipase 86 Units/L (11-82) H 02/25/18 09:26 Consult Discharge Plan - Plan Referrals: toya,Rahul Najera MD [Primary Care Provider] - (Please call [phone] to schedule follow up appointment for 7-10 days from date of discharge. )
== END 2018-02-26 13:01 | disposition home or self-care (01) | DRG 435 ==
LOC: 3BNU 10:15 → EMEROOARM 10:15 → 3BNU 12:49
PROVIDERS: ADMIT Internal Medicine; ATTEND Internal Medicine

== ENCOUNTER 2018-11-11 23:21 | Observation (INO) ==
[2018-11-12] MEDS ORDERED: Prochlorperazine 10 MG/2 ML VIAL IVP STA (00:26)
[2018-11-12] MEDS ORDERED: *HR* HYDROmorphone 2 MG/ML SYRINGE IVP ONE (00:30)
--- NOTE | 2018-11-12 01:33 | Emergency Department Note ---
Disposition Clinical Impression: Cancer associated pain, Pancreatic adenocarcinoma, Nausea Disposition: Admitted As Inpatient Condition: Fair Referrals: Rahul Yo MD [Primary Care Provider] - Forms: ED Satisfaction Letter, Work/School Release Time of Disposition: 02:04 General Adult HPI - General Chief complaint: ED General Medical Stated complaint: Pain Management Time Seen by Provider: 11/12/18 00:12 Source: patient, family Mode of arrival: private vehicle Limitations: no limitations Nursing Notes Reviewed: Yes Vital Signs Reviewed: Yes - History of Present Illness HPI Narrative: 53-year-old female with terminal pancreatic cancer who follows with [facility] presents to the emergency department for pain management. Patient states she is having difficulty with pain management. She states the cancer is in her pancreas, throat, bones. She states she is on Percocet as well as breakthrough oxycodone but this is not helping the pain. She states she has been seen multiple times for this. She states she called the [facility] and they told her that they would just see her at her appointment which is on the eighth. Patient states no new issues, she strictly here for pain management. She is still receiving chemotherapy, next appointment is on the eighth. Patient states she is not on hospice however she states she would like to talk about it and plans on doing that her next cancer appointment. She states "I am just sick and tired of the pain". Pain is to her entire body but worse in the abdomen. She says she had been constipated but is now having normal bowel movements. She denies any recent illness. She states she was given papers for a living will however she has not filled them out yet. She states "I just do not know what to do". Onset (ago): week(s) Location: abdomen, other Radiation: non-radiation Pain Severity: severe Pain Scale: 10 Consistency: constant, Worsening Improves with: medication Worsens with: nothing Associated symptoms: Reports: denies other symptoms Treatments Prior to Arrival: other - Related Data Home Medications Medication Instructions Recorded Confirmed Albuterol Sulfate [Ventolin Hfa] 2 puff IH Q4H PRN 11/01/16 10/18/18 Levothyroxine [Synthroid] 100 mcg PO 0630 11/01/16 10/18/18 Lisinopril [Zestril] 10 mg PO DAILY 11/01/16 10/18/18 Methocarbamol [Robaxin] 325 mg PO Q8HR 11/01/16 10/18/18 Simvastatin [Zocor] 40 mg PO HS PRN 12/22/16 10/18/18 ALPRAZolam [Xanax 0.25 MG Tablet] 0.25 mg PO BID 02/23/18 10/18/18 Ergocalciferol (VITAMIN D2) 50,000 unit PO DAILY 05/24/18 10/18/18 [Vitamin D2] Promethazine [Phenergan] 12.5 mg RC Q4HR 05/24/18 10/18/18 Previous Rx's Medication Instructions Recorded Loperamide HCl [Anti-Diarrheal] 2 mg PO Q4H #20 tablet 03/04/18 Omeprazole [PriLOSEC] 20 mg PO DAILY #30 cap 06/06/18 Prochlorperazine Maleate 10 mg PO Q6HR PRN #30 tablet 06/06/18 [Compazine] Dexamethasone [Decadron] 2 tab PO DAILY #40 tab 07/10/18 Ondansetron ODT [Zofran ODT] 4 mg SL Q6HR PRN #30 tab.rapdis 09/04/18 Hydrocortisone 2.5% CREAM [Cortaid] 1 appl TP BID #1 tube 09/18/18 amLODIPine [Norvasc] 5 mg PO DAILY #30 tablet 09/18/18 Magnesium Citrate 125 mg PO DAILY #14 capsule 11/08/18 Allergies Allergy/AdvReac Type Severity Reaction Status Date / Time Amoxicillin [From Augmentin] Allergy Rash Verified 10/18/18 10:17 clavulanic acid Allergy Rash Verified 10/18/18 10:17 [From Augmentin] morphine Allergy See Verified 10/18/18 10:17 Comments All systems ED: reviewed and negative except as stated. Review of Systems: As Per HPI Constitutional: Denies: fever, chills Cardiovascular: Denies: chest pain Respiratory: Denies: cough Gastrointestinal: Reports: abdominal pain, nausea. Denies: vomiting, diarrhea, constipation, hematemesis, melena, hematochezia Musculoskeletal: Reports: back pain, myalgia Integumentary: Denies: rash Past Medical History - Past Medical History Attestation: Yes The following information was validated with the patient. Source: patient Medical history: Reports: cancer, GERD, hyperlipidemia, hypertension, thyroid disease Surgical history: Reports: appendectomy, orthopedic, other Psychiatric history: Reports: anxiety, depression MEDICAL ASSISTANT INSTRUCTOR history: Reports: no MEDICAL ASSISTANT INSTRUCTOR history - Social History Smoking Status: Former smoker Smokeless Tobacco Status: No Alcohol use: Reports: none Drug use: Reports: none Physical Exam - General Limitations: no limitations General appearance: alert, in distress (Related to pain) - Head Head exam: atraumatic, normocephalic, normal inspection - Eye Eye exam: Present: normal appearance - ENT ENT exam: mucous membranes moist - Neck Neck exam: Present: normal inspection, full ROM, trachea midline. Absent: tenderness, meningismus, lymphadenopathy - Chest Chest inspection: Present: normal inspection, symmetric chest wall rise - Respiratory Respiratory exam: Present: normal lung sounds bilaterally - Cardiovascular Cardiovascular exam: Present: regular rate, normal rhythm, normal heart sounds - Abdominal Exam Abdominal exam: Present: soft, tenderness, normal bowel sounds Abdominal tenderness: Present: diffuse - Extremities Exam Extremities exam: Present: normal inspection, full ROM. Absent: tenderness, pedal edema - Neurological Exam Neurological exam: Present: alert, oriented X3 - Psychiatric Psychiatric exam: Present: normal affect, normal mood - Skin Skin exam: Present: warm, dry, intact, normal color Course Course Narrative: Well-developed female moderate amount of distress related to pain. Patient is tearful. She is afebrile, normotensive. Physical exam is unremarkable. Patient was seen here a few days ago for the same complaint, she was also seen at the [facility]. Her pain is poorly managed at home given the metastatic cancer, she is terminal at this point she has accepted this. Patient was given pain medication did help her pain. Lengthy discussion regarding pain management, decisions. Patient Resources. I did offer admission to the hospital for pain management as well as to get a palliative consult to assist her with these decisions. She states "I am just so tired of this pain and I just do not know what to do". I do feel patient would benefit from the resources we have here with the palliative team as well as to manage her pain. Patient is agreeable to this. She was very thankful. We will page the hospitalist at this time. [id number] with hospitalist Dr. Pope agreeable for admission to the hospital for pain management. We will monitor patient on this transition occurs. At this time patient states her pain is considerably better. She is denying any need. She is resting quietly with her eyes closed. Vital Signs Temperature 98.1 F 11/12/18 00:20 Pulse Rate 67 11/12/18 00:20 Respiratory Rate 16 11/12/18 00:20 Blood Pressure 157/91 11/12/18 00:20 O2 Sat by Pulse Oximetry 100 11/12/18 00:20 Temperature 98.1 F 11/12/18 00:20 Pulse Rate 67 11/12/18 00:20 Respiratory Rate 16 11/12/18 00:20 Blood Pressure 157/91 11/12/18 00:20 O2 Sat by Pulse Oximetry 100 11/12/18 00:20 Oxygen Delivery Oxygen Delivery Room Air
--- NOTE | 2018-11-12 02:18 | Emergency Department Note ---
Disposition Clinical Impression: Cancer associated pain, Pancreatic adenocarcinoma, Nausea Disposition: Admitted As Inpatient Condition: Fair Time of Disposition: 02:16 General Adult HPI - General Chief complaint: ED General Medical Stated complaint: Pain Management Time Seen by Provider: 11/12/18 00:12 Source: patient, family Mode of arrival: private vehicle Limitations: no limitations Nursing Notes Reviewed: Yes Vital Signs Reviewed: Yes - History of Present Illness Location: abdomen, other Pain Scale: 10 Improves with: medication Worsens with: nothing Associated symptoms: Reports: denies other symptoms Treatments Prior to Arrival: other - Related Data Home Medications Medication Instructions Recorded Confirmed Albuterol Sulfate [Ventolin Hfa] 2 puff IH Q4H PRN 11/01/16 10/18/18 Levothyroxine [Synthroid] 100 mcg PO 0630 11/01/16 10/18/18 Lisinopril [Zestril] 10 mg PO DAILY 11/01/16 10/18/18 Methocarbamol [Robaxin] 325 mg PO Q8HR 11/01/16 10/18/18 Simvastatin [Zocor] 40 mg PO HS PRN 12/22/16 10/18/18 ALPRAZolam [Xanax 0.25 MG Tablet] 0.25 mg PO BID 02/23/18 10/18/18 Ergocalciferol (VITAMIN D2) 50,000 unit PO DAILY 05/24/18 10/18/18 [Vitamin D2] Promethazine [Phenergan] 12.5 mg RC Q4HR 05/24/18 10/18/18 Previous Rx's Medication Instructions Recorded Loperamide HCl [Anti-Diarrheal] 2 mg PO Q4H #20 tablet 03/04/18 Omeprazole [PriLOSEC] 20 mg PO DAILY #30 cap 06/06/18 Prochlorperazine Maleate 10 mg PO Q6HR PRN #30 tablet 06/06/18 [Compazine] Dexamethasone [Decadron] 2 tab PO DAILY #40 tab 07/10/18 Ondansetron ODT [Zofran ODT] 4 mg SL Q6HR PRN #30 tab.rapdis 09/04/18 Hydrocortisone 2.5% CREAM [Cortaid] 1 appl TP BID #1 tube 09/18/18 amLODIPine [Norvasc] 5 mg PO DAILY #30 tablet 09/18/18 Magnesium Citrate 125 mg PO DAILY #14 capsule 11/08/18 Allergies Allergy/AdvReac Type Severity Reaction Status Date / Time Amoxicillin [From Augmentin] Allergy Rash Verified 10/18/18 10:17 clavulanic acid Allergy Rash Verified 10/18/18 10:17 [From Augmentin] morphine Allergy See Verified 10/18/18 10:17 Comments Constitutional: Denies: fever, chills Cardiovascular: Denies: chest pain Respiratory: Denies: cough Gastrointestinal: Reports: abdominal pain, nausea. Denies: vomiting, diarrhea, constipation, hematemesis, melena, hematochezia Musculoskeletal: Reports: back pain, myalgia Integumentary: Denies: rash Past Medical History - Past Medical History Medical history: Reports: cancer, GERD, hyperlipidemia, hypertension, thyroid disease Surgical history: Reports: appendectomy, orthopedic, other Psychiatric history: Reports: anxiety, depression RN EMBEDDED history: Reports: no RN EMBEDDED history - Social History Smoking Status: Former smoker Smokeless Tobacco Status: No Alcohol use: Reports: none Drug use: Reports: none Physical Exam - General Limitations: no limitations General appearance: alert, in distress (Related to pain) Course Vital Signs Temperature 98.1 F 11/12/18 00:20 Pulse Rate 67 11/12/18 00:20 Respiratory Rate 16 11/12/18 00:20 Blood Pressure 157/91 11/12/18 00:20 O2 Sat by Pulse Oximetry 100 11/12/18 00:20 Temperature 98.1 F 11/12/18 00:20 Pulse Rate 67 11/12/18 00:20 Respiratory Rate 16 11/12/18 00:20 Blood Pressure 157/91 11/12/18 00:20 O2 Sat by Pulse Oximetry 100 11/12/18 00:20 Oxygen Delivery Oxygen Delivery Room Air Attestation Statement - Attestation Attestation: I, Waylon Correa MD, personally evaluated this patient and discussed their management with the midlevel provicer, PAC/GROUND WORKER. I reviewed the midlevel provider's note and agree with the documented findings, medical decision making, and plan of care. 53-year-old female presents to the emergency department for intractable nausea and vomiting and abdominal pain. Patient has a history of terminal metastatic pancreatic cancer. She has been on chemotherapy. No radiation. She states that the pain and nausea have worsened over the past few months. Tonight she just reached the point that she could not tolerate the pain and nausea anymore. Pain is mostly in the back and left flank area as well as the epigastric and left upper quadrant area. The pain radiates down towards the left lower quadrant. No fever. No GI bleed symptoms. On examination patient is a well-developed obese female in no acute distress. She is alert and oriented 3. There is no cyanosis or diaphoresis. Breath sounds are clear and equal bilaterally. Heart regular rate and rhythm. Abdomen is soft with present bowel sounds. Moderate epigastric and left upper quadrant tenderness. The hospitalist, Dr. Pope, was consulted and accepted admission of the patient.
[2018-11-12] MEDS ORDERED: Isovue-370 500 ML BOTTLE IVP ONE (03:00)
[2018-11-12] MEDS ORDERED: *HR* Promethazine 25 MG/ML VIAL IVP PRN (03:05)
[2018-11-12] MEDS ORDERED: Naloxone 0.4 MG/ML INJ IVP PRN (03:06)
[2018-11-12] MEDS ORDERED: Ipratropium/Albuterol Neb 3 ML IH PRN (03:07)
[2018-11-12] MEDS ORDERED: Ringers Solution, Lactated 1,000 ML IVC SCH (03:15)
[2018-11-12] MEDS ORDERED: *HR* FentaNYL PATCH 50 MCG PATCH TD SCH (03:15)
--- NOTE | 2018-11-12 03:20 | Internal Med History&Physical ---
Date of Encounter: 11/12/18 Time of Encounter: 03: Internal Medicine - H&P: HPI Chief complaint: abdominal pain Admitted From: Home Plans for Post Hospital Care: Home History of present illness: Rachael Mendez is a 53-year-old woman smoker with hypertension, hyperlipidemia who was diagnosed with stage IV pancreatic adenocarcinoma in February 2018 after presenting with multiple months of abdominal pain, abdominal distention and constipation, found to have a mass on CT scan here that continued to get workup at [facility]. PET scan revealed hypermetabolic lymph nodes, peripancreatic, retroperitoneal, supraclavicular lymph node involvement as well as iliac regions. She has been receiving palliative chemotherapy at [facility] that was complicated by peripheral neuropathy. She has started to receive her kim motherapy here locally due to difficulty with transportation to [place]. Since it emergency room today complaining of poorly controlled pain syndrome all over her body especially in her abdomen and her lower back. She says the oxycodone tablet shows prescribed by the oncologist are no longer sufficient. She says she has been seen in emergency rooms multiple times of recent because of this problem by her pain is excruciating. In the emergency room she was given 1 dose of hydromorphone and is admitted for observation and discussion with palliative services as she would like to discuss options and goals of care. She reports feeling chills although she is afebrile without dysuria, productive cough, chest pain and diarrhea. Vitals: Reviewed General: Obese -[place] woman lying comfortably in bed in no acute distress. Antalgic posturing noted. Skin: Warm and supple. HEENT: Moist mucous membranes. No conjunctivae pallor. Neck: No lymphadenopathy. No JVD. No carotid bruits. No palpable thyroid. Chest: Normal thoracic expansion. Normal breath sounds. Clear to auscultation. Chemoport on right upper chest. Heart: Normal S1 & S2; rhythmic. No rubs or murmurs. Abdomen: Non-distended, soft and mildly tender to palpation in the epigastrium. No peritoneal reaction. Extremities: No clubbing, cyanosis or edema. No calf tenderness. Normal distal pulses. Neurological: Awake, alert and oriented to person, place and time. No focal deficits. Psych: Affect appropriate. Assessment/Plan 1. Neoplasm related pain syndrome: Will start her on fentanyl patch and in the interim provide breakthrough analgesics with ketorolac and oxycodone as needed based on pain scale. Will get contrast CT studies of her abdomen and lumbar spine to assess for extension or not of metastatic lesions. Palliative consult requested. 2. Chills: Will draw empiric blood cultures since she has an indwelling vascular catheter. No indication for antimicrobials at this time. 3. Hypertension: Continue amlodipine 5mg daily. 4. Tobacco use: The patient has since quit. Cessation education reinforced. Past Med Surg Social Fam HX - Past Medical History Medical history: cancer, GERD, hyperlipidemia, hypertension, thyroid disease Additional medical history: Pancreatic cancer Psychiatric history: anxiety, depression - Past Surgical History Surgical History: appendectomy, orthopedic, other Additional surgical history: iodine tx to thyroid. polyps removed - Social History Smoking Status: Former smoker Smokeless Tobacco Status: No Alcohol use: none Drug use: none - Family History Mother Living Status: Still Living Hx Family Cardiac Disorders: Yes (cardiac stents) Hx Family Cancer: No (rectal cancer) Hx Family Endocrine Disorder: Yes (DM) Father Living Status: Hx Family Endocrine Disorder: Yes (DM) Internal Medicine - H&P: Meds Albuterol Sulfate [Ventolin Hfa] 2 puff IH Q4H PRN 11/01/16 [History] Levothyroxine [Synthroid] 100 mcg PO 0630 11/01/16 [History] Lisinopril [Zestril] 10 mg PO DAILY 11/01/16 [History] Methocarbamol [Robaxin] 325 mg PO Q8HR 11/01/16 [History] Simvastatin [Zocor] 40 mg PO HS PRN 12/22/16 [History] ALPRAZolam [Xanax 0.25 MG Tablet] 0.25 mg PO BID 02/23/18 [History] Loperamide HCl [Anti-Diarrheal] 2 mg PO Q4H #20 tablet 03/04/18 [Rx] Ergocalciferol (VITAMIN D2) [Vitamin D2] 50,000 unit PO DAILY 05/24/18 [History] Promethazine [Phenergan] 12.5 mg RC Q4HR 05/24/18 [History] Omeprazole [PriLOSEC] 20 mg PO DAILY #30 cap 06/06/18 [Rx] Prochlorperazine Maleate [Compazine] 10 mg PO Q6HR PRN #30 tablet 06/06/18 [Rx] Dexamethasone [Decadron] 2 tab PO DAILY #40 tab 07/10/18 [Rx] Ondansetron ODT [Zofran ODT] 4 mg SL Q6HR PRN #30 tab.rapdis 09/04/18 [Rx] Hydrocortisone 2.5% CREAM [Cortaid] 1 appl TP BID #1 tube 09/18/18 [Rx] amLODIPine [Norvasc] 5 mg PO DAILY #30 tablet 09/18/18 [Rx] Magnesium Citrate 125 mg PO DAILY #14 capsule 11/08/18 [Rx] Allergy/AdvReac Type Severity Reaction Status Date / Time Amoxicillin [From Augmentin] Allergy Rash Verified 10/18/18 10:17 clavulanic acid Allergy Rash Verified 10/18/18 10:17 [From Augmentin] morphine Allergy See Verified 10/18/18 10:17 Comments All Systems PM: A 10-system review of systems was performed and is negative for pertinent findings except as documented above in the HPI. - Constitutional Vitals: Temp Pulse Resp BP Pulse Ox 98.1 F 85 15 177/82 97 11/12/18 00:20 11/12/18 02:00 11/12/18 02:00 11/12/18 02:00 11/12/18 02:00 Exam: . - Time Spent With Patient Total time spent is greater than 50% in coordination of care (as documented) at patient's floor/unit and/or counseling patient:
[2018-11-12 03:48] LABS: Bilirubin,Urine Negative (Negative); Blood,Urine Negative (Negative); Clarity,Urine Clear (Clear); Color,Urine Yellow (Yellow); Glucose,Urine (UA) Normal (Normal); Ketones,Urine Negative (Negative); Leukocyte Esterase,Urine Negative (Negative); Nitrite,Urine Negative (Negative); Protein,Urine Negative (Neg-Trace); Specific Gravity,Urine 1.022 (1.010-1.025); Urobilinogen,Urine Normal (Normal)
[2018-11-12 04:06] LABS: Basophils % 0.3 %; Eosinophils # 0.2 K/mcL (0.0-0.6); Eosinophils % 2.9 %; Hematocrit 34.8 % (35.3-44.9); Hemoglobin 11.5 g/dL (11.5-15.4); Immature Granulocytes % 0.3 % (0-4); Lymphocytes # 3.5 K/mcL (0.6-4.6); Lymphocytes % 56.2 %; Mean Corpuscular Hemoglobin 32.1 pg (28.0-33.3); Mean Corpuscular Volume 97.2 fL (83.0-100.0); Mean Platelet Volume 9.6 fL (9.4-12.4); Monocytes # 0.5 K/mcL (0.0-1.3); Monocytes % 8.8 %; Neutrophils # 1.9 K/mcL (1.6-8.9); Platelet Count 208 K/mcL (140-400); Red Blood Count 3.58 M/mcL (3.82-4.97); Red Cell Distribution Width 14.3 % (11.5-14.5); Segmented Neutrophils % 31.5 %; White Blood Count 6.2 K/mcL (4.3-11.1)
[2018-11-12 04:12] LABS: Prothrombin Time 10.9 Seconds (9.4-12.1)
[2018-11-12 04:15] LABS: Activated Partial Thrombo Time 37.4 Seconds (26.0-36.0)
[2018-11-12 04:26] LABS: Alanine Aminotransferase 13 Units/L (7-52); Albumin 3.9 g/dL (3.5-5.7); Albumin/Globulin Ratio 1.4 (1.1-2.2); Alkaline Phosphatase 84 Units/L (34-104); Aspartate Amino Transferase 16 Units/L (13-39); BUN/Creatinine Ratio 21 (6-26); Bilirubin,Indirect 0.2 mg/dL (0.0-1.2); Bilirubin,Total 0.2 mg/dL (0.3-1.0); Blood Urea Nitrogen 15 mg/dL (6-20); Calcium 9.1 mg/dL (8.6-10.3); Carbon Dioxide 26 mEq/L (23-29); Chloride 107 mEq/L (98-107); Globulin 2.7 g/dL (2.4-3.5); Glucose 121 mg/dL (70-105); Lipase 15 Units/L (11-82); Magnesium 1.9 mg/dL (1.6-2.6); Osmolality,Calculated 288 (280-300); Potassium 3.7 mEq/L (3.5-5.1); Sodium 138 mEq/L (136-145); Total Protein 6.6 g/dL (6.4-8.9); eGFR For African Americans > 60 (> 60); eGFR For Non-African Americans > 60 (> 60)
[2018-11-12] MEDS: Ondansetron 4 MG/2 ML VIAL IVP PRN (04:51)
[2018-11-12] MEDS: Ketorolac 30 MG/ML VIAL IVP PRN ×2 (08:31→21:22)
[2018-11-12] MEDS: ALPRAZolam 0.25 MG TABLET PO SCH ×2 (08:50→19:42)
[2018-11-12] MEDS: amLODIPine 5 MG TABLET PO SCH (08:51)
[2018-11-12] MEDS ORDERED: Methylnaltrexone 12 MG/0.6 ML SYRINGE SQ ONE (10:07)
[2018-11-12] MEDS: *HR* OxyCODONE Immed Rel 5 MG TABLET PO PRN ×2 (10:17→17:08)
--- NOTE | 2018-11-12 10:38 | Oncology Inp Consult Note ---
<Nasim Urias - Last Filed: 11/12/18 16:30> Date of Encounter: 11/12/18 Time of Encounter: 10:58 Assessment and Plan (1) Cancer associated pain Status: Acute Assessment and plan: The patient has been having severe cancer related pain that has been worsening over the past 4 days. In the outpatient setting she has a long acting and short acting opioid, however it has not been sufficient and she feels that she could be getting better pain management. She was placed on a fentanyl patch with breakthrough oxycodone which has been controlling her pain while she is in hospital. This is a reasonable plan at discharge. Likely the patient will need to titrate up on her fentanyl to try and decrease the number of times she is requiring breakthrough management. Discussed this plan with the patient and she has okay with that. We did discuss that the oxaliplatin is unlikely to be the source of the patient's previous pain control. (2) Pancreatic adenocarcinoma Status: Acute Assessment and plan: The patient will continue to receive care with Dr. Corado at the [facility]. - Data of Consult Patient: known to practice within the last 3 years Consult date: 11/12/18 Requesting Physician: Francisca Quiros Primary Care Provider: Rahul Yo MD - Consult Narrative Reason for consult: Known to practice, pancreatic cancer History of present illness: Ms. Mendez is a 53-year-old woman who presented to [facility] on 11/12/18 due to severe abdominal pain which was intractable and unresponsive to outpatient therapy. Hematology and oncology was consulted on 11/12/18 because she is known to this service due to her pancreatic cancer. In short, Ms. Menedz is a 53-year-old woman with history of GERD, hypertension, hypothyroidism, and stage IV pancreatic adenocarcinoma diagnosed in February 2018 who presented to [facility] due to intractable abdominal pain with nausea and vomiting. The patient states that she has been having pain for the past several weeks, however 4 days ago she started having pain which was completely intractable in nature and that she was unable to control in the outpatient setting. She says that she was taking her outpatient medications which included Percocet 5 mg, as well as Aleve and additional Tylenol, however this was not really helping. The pain is significantly concentrated her left flank with radiation towards her groin and up towards her center chest and is up to 20/10 in severity. She describes the pain as sharp, cramping and stabbing in nature, and it changes at different times. Nothing seems to make it any better. She says that she typically has a good appetite however this is stopped her from eating some. She thinks that she has lost about 13 pounds recently. She does say that she has been able to have bowel movements recently and does not feel the constipation place a large role in this pain. She mentions that she does have peripheral neuropathy which also has some role in the pain. She apparently was on a medication at the cancer center with her chemotherapy which she felt was very helpful, however it was taken away from her recently and she says that her pain has gotten significantly worse as a result. She says that she has never experienced any pain like this in her life. In the emergency department, the patient had labs which were unremarkable apart from a TSH of 42.69. She also did have CT of her abdomen and pelvis which demonstrated stable appearing pancreatic mass, however did demonstrate right hepatic lobe mass which is newly conspicuous and concerning for metastasis. She was placed on a fentanyl patch for pain management. Oncology History 1. Pancreatic adenocarcinoma. AJCC eighth eddition T2, N2, M1 Stage IV with left supraclavicular adenopathy by PET scan. EUS biopsy 03/06/2018 of the pancreas confirmed the diagnosis Her treatment was started at [facility] First-line treatment FOLFIRINOX Cycle 1 on 05/29/2018 Since then she had dose reduction cycle 2 and 3. With that dose reduction in her fatigue and nausea improved. Cycle repeated every 2 weeks Irinotecan 120 mg/m Oxaliplatin 85 mg/m IV day 1 (last dose 10/02/2018. Stopped due to neuropathy)) 5-FU 2400 mg/m IV over 46 hours She started her first cycle of chemotherapy at [place] on 05/29/2018. We started her on the same dose she had last at [facility]. 10/18/18: cycle 9 (oxaliplatin stopped) Changed to q 21 days Past Med Surg Social Fam HX - Past Medical History Medical history: cancer, GERD, hyperlipidemia, hypertension, thyroid disease Additional medical history: Pancreatic cancer, neuropathy Psychiatric history: anxiety, depression - Past Surgical History Surgical History: appendectomy, orthopedic, other Additional surgical history: 3 back surgeries - Social History Smoking Status: Former smoker Smokeless Tobacco Status: No Alcohol use: none Drug use: none - Family History Mother Living Status: Still Living Hx Family Cardiac Disorders: Yes (cardiac stents) Hx Family Cancer: No (rectal cancer) Hx Family Endocrine Disorder: Yes (DM) Father Living Status: Hx Family Endocrine Disorder: Yes (DM) Medications and Allergies Albuterol Sulfate [Ventolin Hfa] 1 - 2 puff IH Q6H PRN 11/01/16 [History] Lisinopril [Zestril] 10 mg PO DAILY 11/01/16 [History] Methocarbamol [Robaxin] 375 mg PO TID 11/01/16 [History] Simvastatin [Zocor] 40 mg PO HS 12/22/16 [History] ALPRAZolam [Xanax 0.25 MG Tablet] 0.25 mg PO 1-2XD PRN 02/23/18 [History] Ergocalciferol (VITAMIN D2) [Vitamin D2] 50,000 unit PO QWEEK 05/24/18 [History] Ondansetron ODT [Zofran ODT] 4 mg SL Q6HR PRN #30 tab.rapdis 09/04/18 [Rx] Dexamethasone [Decadron] 8 mg PO DAILY 11/12/18 [History] Gabapentin [Neurontin] 300 mg PO TID 11/12/18 [History] Levothyroxine Sodium [Levoxyl] 125 mcg PO QAM 11/12/18 [History] Naproxen Sodium [Aleve] 440 mg PO DAILY PRN 11/12/18 [History] Omeprazole [PriLOSEC] 20 mg PO BID PRN 11/12/18 [History] Oxycodone HCl [Oxycontin] 10 mg PO BID PRN 11/12/18 [History] Oxycodone HCl [Roxybond] 5 mg PO Q6H PRN 11/12/18 [History] Polyethylene Glycol 3350 [MiraLax bowel prep] 17 gm PO DAILY PRN 11/12/18 [History] Promethazine HCl 12.5 mg PO Q4H PRN 11/12/18 [History] amLODIPine [Norvasc] 5 mg PO QAM 11/12/18 [History] Allergy/AdvReac Type Severity Reaction Status Date / Time Amoxicillin [From Augmentin] Allergy Rash, ITCH Verified 11/12/18 18:02 clavulanic acid Allergy Rash, ITCH Verified 11/12/18 18:02 [From Augmentin] morphine Allergy See Verified 11/12/18 18:02 Comments Review of systems: Constitutional: Denies fevers, chills, generalized fatigue. Admits to some weight loss Head/Neck: Denies AWAD, neck stiffness EENT: Denies vision changes/blurriness, rhinorrhea, congestion, sore throat CVS: Denies chest pain, palpitations, ESTRADA, orthopnea, edema, PND Pulm: Denies SOB, cough, sputum, hemoptysis, wheezing GI: Admits to abdominal pain, nausea, vomiting. Denies significant constipation : Denies dysuria, increased frequency, urgency, hematuria Heme: Denies ease of bleeding or bruising MSK: Denies joint pain, limited ROM Skin: Denies rashes, ulcers, color changes Neuro: Denies AWAD, paresthesias, focal deficits, ataxia Oncology - Exam - Constitutional Exam: Gen: Vitals noted. No acute distress. Eyes: anicteric sclerae, moist conjunctivae; HENT: Atraumatic; oropharynx clear with moist mucous membranes and no mucosal ulcerations; normal hard and soft palate Neck: Trachea midline; supple, no thyromegaly or lymphadenopathy Cardiac: RRR, no murmur, +S1/S2 Pulmonary: CTA bilaterally, no wheezes, rales or rhonchi, equal chest expansion Abdomen: soft, very minimal tenderness to palpation of all 4 quadrants, no guarding. No masses or hepatosplenomegaly MSK: ROM intact, no joint swelling noted Extremities: no BLE edema, nontender calf, no cyanosis or clubbing Skin: Normal temperature, turgor and texture; no rash, ulcers or subcutaneous nodules Neuro: moves all extremities, no focal deficits. Psych: Appropriate mood and behavior. A&Ox3 Consult Discharge Plan - Plan Referrals: Rahul Yo MD [Primary Care Provider] - Inpatient Charges Provider: Dr. Lexi Solano <Owen Solano - Last Filed: 11/12/18 19:05> Date of Encounter: 11/12/18 - Data of Consult Requesting Physician: Francisca Quiros Primary Care Provider: Rahul Yo MD - Attending Attestation I examined this patient and my medical decision-making was reviewed with the resident. I agree with the documented findings, disposition and treatment plan as described except to the extent set forth below. She has chronic pain which has subacutely worsened over the past two weeks. Her pain involves her abdomen and chest. It is constant but waxes and wanes. She has been taking oxycodone and oxycontin prn as opposed to scheduled. She was placed on fentanyl by the hospitalist with improvement. Would continue oxycodone prn with fentanyl. Discontinue oxycontin. She will f/u with Dr. Corado on as scheduled and may be d/c. We will sign off. Inpatient Charges Provider: Dr. Lexi Solano Consult - Inpatient: [id number]
--- NOTE | 2018-11-12 14:55 | Palliative - Consult Note ---
<Page Page - Last Filed: 11/12/18 14:53> Date of Encounter: 11/12/18 Time of Encounter: 11:00 - Assessment and Plan (1) Goals of care, counseling/discussion Status: Acute Assessment and plan: Discussed at length with patient and Dr. So patient's goals of care. Patient plans to continue with palliative chemotherapy at this time due to her family and grandchildren that depend on her. She plans to discuss resuming Oxaliplatin as she feels she was doing better while receiving this chemotherapy. We discussed with the patient that she may have worsening pain as a result of natural disease progression and that pain medication will need to be adjusted to account for this. Patient stated that she is hoping for a miracle and that she will get through this. She currently has 4 grandchildren living in her home. She has two daughters that live locally and one daughter in [place]. Patient wishes to change her code status to DNR-CCA because if her heart is to stop, she does not want to be revived and wants to go peacefully. (2) Palliative care encounter Status: Acute (3) Cancer associated pain Status: Acute Assessment and plan: Patient's pain is well controlled on current pain medications. Continue Fentanyl 50 mcg for now, may consider decreasing dose if patient does not tolerate (4) Pancreatic adenocarcinoma Status: Acute Assessment and plan: Patient to continue with palliative chemotherapy at this time. She wishes to discuss with Oncology resuming Oxaliplatin as stated above. Patient now understands the reasoning for 21 day intervals after further discussion Code status changed to DNR-CCA Palliative-CN HPI - Data of Consult Consult date: 11/12/18 Requesting Physician: Francisca Quiros Primary Care Provider: Rahul Yo MD - Consult Narrative Reason for consult: Metastatic pancreatic cancer with uncontrolled pain History of present illness: Rachael Mendez is a 53 year old female who was diagnosed with stage IV pancreatic adenocarcinoma in 2017. Patient was initially being cared for at [facility], but due to transportation issues, her care was transferred to [facility]. She was started on Palliative chemotherapy in 2017 with Folfirinox (Irinotecan/Oxaliplatin). She started treatment at the [facility] in May 2018. Her tumor markers improved with chemo, however she experienced peripheral neuropathy, which recently lead to the decision to stop Oxaliplatin. Her radiation treatments were also moved from every 2 weeks to every 21 days to allow recovery time for her blood cells counts and her to help with her neuropathy. Since stopping the Oxaliplatin, the patient states that her pain has been out of control. She said she was taking Percocet 5/325 and Oxycodone 10 for breakthrough at home for pain without relief. She also states she was taking Aleve like candy, which also didn't help. After her most recent chemo session last , she states that she was in so much pain that her daughter insisted on taking her to the [facility] but still left in pain. She expresses frustration with her care and the lack of communication. She presented to the ER early this morning because she just couldnt' take the pain anymore. She received 2mg of dilaudid in the ER and a 50mcg Fentanyl patch with Toradol PRN upon admission. She states that today for the first time since her diagnosis that she doesn't have pain. CC: Francisca Quiros - Time Spent with Patient Time: Total time spent is greater than 50% in coordination of care (as documented) at patient's floor/unit and/or counseling patient: Past Med Surg Social Fam HX - Past Medical History Medical history: cancer, GERD, hyperlipidemia, hypertension, thyroid disease Additional medical history: Pancreatic cancer, neuropathy Psychiatric history: anxiety, depression - Past Surgical History Surgical History: appendectomy, orthopedic, other Additional surgical history: 3 back surgeries - Social History Smoking Status: Former smoker Smokeless Tobacco Status: No Alcohol use: none Drug use: none - Family History Mother Living Status: Still Living Hx Family Cardiac Disorders: Yes (cardiac stents) Hx Family Cancer: No (rectal cancer) Hx Family Endocrine Disorder: Yes (DM) Father Living Status: Hx Family Endocrine Disorder: Yes (DM) Medications and Allergies Albuterol Sulfate [Ventolin Hfa] 1 - 2 puff IH Q6H PRN 11/01/16 [History] Lisinopril [Zestril] 10 mg PO DAILY 11/01/16 [History] Methocarbamol [Robaxin] 375 mg PO TID 11/01/16 [History] Simvastatin [Zocor] 40 mg PO HS 12/22/16 [History] ALPRAZolam [Xanax 0.25 MG Tablet] 0.25 mg PO 1-2XD PRN 02/23/18 [History] Ergocalciferol (VITAMIN D2) [Vitamin D2] 50,000 unit PO QWEEK 05/24/18 [History] Ondansetron ODT [Zofran ODT] 4 mg SL Q6HR PRN #30 tab.rapdis 09/04/18 [Rx] Dexamethasone [Decadron] 8 mg PO DAILY 11/12/18 [History] Gabapentin [Neurontin] 300 mg PO TID 11/12/18 [History] Levothyroxine Sodium [Levoxyl] 125 mcg PO QAM 11/12/18 [History] Naproxen Sodium [Aleve] 440 mg PO DAILY PRN 11/12/18 [History] Omeprazole [PriLOSEC] 20 mg PO BID PRN 11/12/18 [History] Oxycodone HCl [Roxybond] 5 mg PO Q6H PRN 11/12/18 [History] Polyethylene Glycol 3350 [MiraLax bowel prep] 17 gm PO DAILY PRN 11/12/18 [History] Promethazine HCl 12.5 mg PO Q4H PRN 11/12/18 [History] amLODIPine [Norvasc] 5 mg PO QAM 11/12/18 [History] FentaNYL PATCH [Duragesic] 50 mcg TD Q72H 1 Days #1 patch.td72 11/13/18 [Rx] Allergy/AdvReac Type Severity Reaction Status Date / Time Amoxicillin [From Augmentin] Allergy Rash, ITCH Verified 11/12/18 18:02 clavulanic acid Allergy Rash, ITCH Verified 11/12/18 18:02 [From Augmentin] morphine Allergy See Verified 11/12/18 18:02 Comments Review of systems: Currently denies pain, N/V/D, fever, chills, CP, SOB, edema Palliative Care-Exam - Constitutional Vitals: Temp Pulse Resp BP Pulse Ox 97.8 F 83 16 141/89 97 11/12/18 11:48 11/12/18 11:48 11/12/18 11:48 11/12/18 11:48 11/12/18 11:48 Exam: Gen: Vitals noted. No acute distress. Eyes: anicteric sclerae, moist conjunctivae HENT: Atraumatic; oropharynx clear with moist mucous membranes Cardiac: RRR, no murmur, +S1/S2 Pulmonary: CTA bilaterally, no wheezes, rales or rhonchi, equal chest expansion Abdomen: soft, nontender, no guarding Extremities: no BLE edema, nontender calf, no cyanosis or clubbing Skin: Warm, dry, intact, no rashes or lesions noted Neuro: moves all extremities, no focal deficits. Psych: Appropriate mood and behavior. A&Ox3 Internal Medicine - CN: Reslt - Labs CBC & Chem 7: 11/12/18 03:43 11/12/18 03:43 Labs: Short CBC 11/12/18 Range/Units 03:43 WBC 6.2 (4.3-11.1) K/mcL Hgb 11.5 (11.5-15.4) g/dL Hct 34.8 L (35.3-44.9) % Plt Count 208 (140-400) K/mcL Neutrophils # 1.9 (1.6-8.9) K/mcL BMP 11/12/18 03:43 Sodium 138 Potassium 3.7 Chloride 107 Carbon Dioxide 26 BUN 15 Creatinine 0.72 Glucose 121 H Calcium 9.1 Liver Function 11/12/18 Range/Units 03:43 Total Bilirubin 0.2 L (0.3-1.0) mg/dL Direct Bilirubin 0.0 (0.0-0.2) mg/dL AST 16 (13-39) Units/L ALT 13 (7-52) Units/L Alkaline Phosphatase 84 (34-104) Units/L Albumin 3.9 (3.5-5.7) g/dL Urine 11/12/18 Range/Units 03:35 Urine Color Yellow (Yellow) Urine Clarity Clear (Clear) Urine pH 6.0 (5.0-8.0) pH Units Ur Specific [place] 1.022 (1.010-1.025) Urine Protein Negative (Neg-Trace) mg/dL Urine Glucose (UA) Normal (Normal) mg/dL - ABG Interpretation ABG results: PT/INR, D-dimer PT 10.9 Seconds (9.4-12.1) 11/12/18 03:43 - Impressions Impressions Abdomen/Pelvis CT 11/12/18 03:00 IMPRESSION: Area of amorphous low attenuation within the pancreatic body correlates with prior FDG avid focus on comparison PET-CT, consistent with patient's history of pancreatic cancer. Surrounding fat stranding and retroperitoneal lymphadenopathy is not substantially changed. Ill-defined amorphous low attenuation focus within the right hepatic lobe is newly conspicuous in indeterminate, though suspicious for metastatic disease. D/ / Chidi Ayala / Chidi Ayala Interpreting Provider: Chidi Ayala Lumbar Spine CT 11/12/18 03:00 IMPRESSION: No suspicious osteolytic or osteoblastic lesion identified. Lumbar spondylosis, most pronounced at L4-L5 and L5-S1. D/ / Chidi Ayala / Chidi Ayala Interpreting Provider: Chidi Ayala Consult Discharge Plan - Plan Instructions: Fentanyl (Absorbed through the skin) Referrals: Rahul Yo MD [Primary Care Provider] - Prescriptions: FentaNYL PATCH [Duragesic] 50 mcg TD Q72H 1 Days #1 patch.td72 Palliative Quality Palliative Quality: Screen for Code Status: Yes, Screen for Goals of Care: Yes, Screen for Pain: Yes, If Pain Regimen Started, Initiate Bowel Regimen: Yes, Screen for Nausea/Vomitting: Yes Code Status: 11/12/18 02:57 Resuscitation Status: Active [RES] Routine Comment: Resuscitation Status: Full Code Palliative Scale - Palliative Performance Scale How ambulatory is this patient?: Reduced What is patient's level of activity and evidence of disease?: Normal activity wi th effort, Some evidence of disease How much self-care assistance does patient require?: Full How much oral intake does the patient have?: Normal or reduced Palliative Performance Score: 80 % <Maria De Jesus So - Last Filed: 11/13/18 12:15> Date of Encounter: 11/13/18 Palliative-CN HPI - Data of Consult Requesting Physician: Francisca Quiros Primary Care Provider: Rahul Yo MD - Consult Narrative History of present illness: Ms. Mendez is a 53 year old female CC: Francisca Quiros - Time Spent with Patient Time: Total time spent is greater than 50% in coordination of care (as documented) at patient's floor/unit and/or counseling patient: Palliative Care-Exam - Constitutional Vitals: Temp Pulse Resp BP Pulse Ox 98.2 F 71 16 168/71 96 11/12/18 16:26 11/12/18 16:26 11/12/18 16:26 11/12/18 16:26 11/12/18 16:26 Internal Medicine - CN: Reslt - Labs CBC & Chem 7: 11/12/18 03:43 11/12/18 03:43 Labs: Short CBC 11/12/18 Range/Units 03:43 WBC 6.2 (4.3-11.1) K/mcL Hgb 11.5 (11.5-15.4) g/dL Hct 34.8 L (35.3-44.9) % Plt Count 208 (140-400) K/mcL Neutrophils # 1.9 (1.6-8.9) K/mcL BMP 11/12/18 03:43 Sodium 138 Potassium 3.7 Chloride 107 Carbon Dioxide 26 BUN 15 Creatinine 0.72 Glucose 121 H Calcium 9.1 Liver Function 11/12/18 Range/Units 03:43 Total Bilirubin 0.2 L (0.3-1.0) mg/dL Direct Bilirubin 0.0 (0.0-0.2) mg/dL AST 16 (13-39) Units/L ALT 13 (7-52) Units/L Alkaline Phosphatase 84 (34-104) Units/L Albumin 3.9 (3.5-5.7) g/dL Urine 11/12/18 Range/Units 03:35 Urine Color Yellow (Yellow) Urine Clarity Clear (Clear) Urine pH 6.0 (5.0-8.0) pH Units Ur Specific [place] 1.022 (1.010-1.025) Urine Protein Negative (Neg-Trace) mg/dL Urine Glucose (UA) Normal (Normal) mg/dL - ABG Interpretation ABG results: PT/INR, D-dimer PT 10.9 Seconds (9.4-12.1) 11/12/18 03:43 - Impressions Impressions Abdomen/Pelvis CT 11/12/18 03:00 IMPRESSION: Area of amorphous low attenuation within the pancreatic body correlates with prior FDG avid focus on comparison PET-CT, consistent with patient's history of pancreatic cancer. Surrounding fat stranding and retroperitoneal lymphadenopathy is not substantially changed. Ill-defined amorphous low attenuation focus within the right hepatic lobe is newly conspicuous in indeterminate, though suspicious for metastatic disease. D/ / Chidi Ayala / Chidi Ayala Interpreting Provider: Chidi Ayala Lumbar Spine CT 11/12/18 03:00 IMPRESSION: No suspicious osteolytic or osteoblastic lesion identified. Lumbar spondylosis, most pronounced at L4-L5 and L5-S1. D/ / Chidi Ayala / Chidi Ayala Interpreting Provider: Chidi Ayala - Attending Attestation I performed a history and physical examination of the patient and discussed his management with the resident. I reviewed the residents note and agree with the documented findings and plan of care, except as follow: 53 year old female who was diagnosed with stage IV pancreatic adenocarcinoma in 2017, now admitted for intractable abdominal pain. Palliative care consult for goals of care discussion. 35 minutes meeting with patient, along with resident Dr Page. Discussed current medical condition, trajectory of illness, treatment options and goals. Pt's biggest concern at this point is the pain, that she feels have increased as a result of stopping the oxiplatin, so she would like it to be restarted. Educated pt about the natural history of pancreatic cancer and expected worsening pain, however encouraged to discuss options with oncology. Pt has 4 children and several grand children, 4 of wich live with her. She intends to do all that is possible to prolong her life. additional 10 minutes of advanced care planning discussion, She decided for DNRCCA, form to be filled. Time spent with patient 70 minutes of which 45 minutes was spent in counseling and coordination of care. Palliative Quality Code Status: 11/12/18 02:57 Resuscitation Status: Active [RES] Routine Comment: Resuscitation Status: Full Code 11/12/18 15:25 CODE [Resuscitation Status: Active] [RES] Routine Comment: Resuscitation Status: DNR-Comfort Care-Arrest
--- NOTE | 2018-11-12 16:50 | Event Note ---
Date of Encounter: 11/12/18 Time of Encounter: 11:00 History and physical noted. I examined the patient myself. Patient was admitted for increase the severity of her pain related to her pancreatic cancer. Palliative team was consulted and patient CODE STATUS was changed to DNR comfort care at the arrest. Patient was placed on fentanyl patch along with her daily dose of oxycodone. Oncology was consulted and they agree with this plan. Tentative discharge tomorrow.
[2018-11-13] MEDS: *HR* OxyCODONE Immed Rel 5 MG TABLET PO PRN ×2 (01:16→08:22)
[2018-11-13] MEDS: Ketorolac 30 MG/ML VIAL IVP PRN (05:33)
[2018-11-13] MEDS: Ondansetron 4 MG/2 ML VIAL IVP PRN (05:39)
[2018-11-13 07:51] VITALS: BP 153/80
[2018-11-13] MEDS: amLODIPine 5 MG TABLET PO SCH (10:15)
[2018-11-13] MEDS: ALPRAZolam 0.25 MG TABLET PO SCH (10:15)
--- NOTE | 2018-11-13 10:28 | Palliative Progress Note ---
<CamiloPage Medina - Last Filed: 11/13/18 10:26> Date of Encounter: 11/13/18 Time of Encounter: 10:00 - Assessment and plan (1) Goals of care, counseling/discussion Status: Acute Assessment and plan: Patient discussed DNR-CCA decision that was made yesterday with her daughter Xin, who was not happy with her mother's decision. Rachael states she would like to change her code status back to FULL CODE until they have some more time to discuss her wishes. Patient still feels that she wants to be a DNR-CCA, however she promised her daughter she would give it some more time before making that decision final. Patient requested a DNR form so that she can have it filled out and authorized by another physician once she makes her decision, form was provided. I also discussed patient's wishes in regards to POA, and she states that she would like her daughter Xin to be her POA. I discussed at length the expectations of her POA to make decisions based on Rachael's wishes in the event that she cannot make her own decisions. She voiced understanding and filled out paperwork to make Xin her POA. She did not want to list and al ternate agent at this time. Rachael was provided with a the original POA paperwork, and a copy was placed in her chart. Patient confirmed that she plans to continue with chemotherapy at the [facility] for now, and wishes to return to the [facility] once her transportation breezy is approved. (2) Palliative care encounter Status: Acute (3) Cancer associated pain Status: Acute Assessment and plan: Pain is well controlled on current pain medications. I discussed at length the plan on discharge to send her home with Fentanyl patch 50mcg Q72 hours and Oxycodone IR 10mg Q6 PRN breakthrough pain. Patient voiced understanding that this would replace her previous regimen. I also again discussed that the natural progression of her illness may lead to worsening of pain, which may require her medications to be adjusted. (4) Pancreatic adenocarcinoma Status: Acute Assessment and plan: Patient plans to continue chemotherapy and pain management as stated above. - Time Spent With Patient Total time spent is greater than 50% in coordination of care (as documented) at patient's floor/unit and/or counseling patient: Greater than 35 minutes - Subjective Interval history: No acute events overnight. Patient lying comfortably in bed upon examination. Pain is well controlled on current medications. Patient states that her abdomen feels slightly swollen today compared to yesterday. She has not had a bowel movement since before coming in to the ER and states that she takes Miralax regularly at home. No fever, chills, CP, N/V/D. - Constitutional Vitals: Abnormal lab results RBC 3.58 M/mcL (3.82-4.97) L 11/12/18 03:43 Hct 34.8 % (35.3-44.9) L 11/12/18 03:43 APTT 37.4 Seconds (26.0-36.0) H 11/12/18 03:43 Glucose 121 mg/dL (70-105) H 11/12/18 03:43 Total Bilirubin 0.2 mg/dL (0.3-1.0) L 11/12/18 03:43 TSH 42.690 mcIU/mL (0.340-5.600) H 11/12/18 03:43 Exam: Gen: Vitals noted. No acute distress. Lying comfortably in bed. Eyes: anicteric sclerae, moist conjunctivae HENT: Atraumatic; oropharynx clear with moist mucous membranes Cardiac: RRR, no murmur, +S1/S2 Pulmonary: CTA bilaterally, no wheezes, rales or rhonchi, equal chest expansion Abdomen: soft, nontender, no guarding. Slightly distended compared to yesterday. Extremities: no BLE edema, nontender calf, no cyanosis or clubbing Skin: Warm, dry, intact, no rashes or lesions noted Neuro: moves all extremities, no focal deficits. Psych: Appropriate mood and behavior. A&Ox3 Palliative Quality Palliative Quality: Screen for Code Status: Yes, Screen for Goals of Care: Yes, Screen for Pain: Yes, If Pain Regimen Started, Initiate Bowel Regimen: Yes, Screen for Nausea/Vomitting: Yes Code Status: 11/12/18 02:57 Resuscitation Status: Active [RES] Routine Comment: Resuscitation Status: Full Code 11/12/18 15:25 CODE [Resuscitation Status: Active] [RES] Routine Comment: Resuscitation Status: DNR-Comfort Care-Arrest 11/13/18 10:30 Changed back to FULL CODE at patient's request. - Labs CBC & Chem 7: 11/12/18 03:43 11/12/18 03:43 - ABG Interpretation ABG results: PT/INR, D-dimer PT 10.9 Seconds (9.4-12.1) 11/12/18 03:43 Palliative Scale - Palliative Performance Scale How ambulatory is this patient?: Reduced What is patient's level of activity and evidence of disease?: Normal activity with effort, Some evidence of disease How much self-care assistance does patient require?: Full How much oral intake does the patient have?: Normal or reduced Palliative Performance Score: 80 % Consult Discharge Plan - Plan Instructions: Fentanyl (Absorbed through the skin) Referrals: Rahul Yo MD [Primary Care Provider] - Prescriptions: FentaNYL PATCH [Duragesic] 50 mcg TD Q72H 1 Days #1 patch.td72 <Maria De Jesus So - Last Filed: 11/13/18 12:12> Date of Encounter: 11/13/18 - Time Spent With Patient Total time spent is greater than 50% in coordination of care (as documented) at patient's floor/unit and/or counseling patient: - Constitutional Vitals: Abnormal lab results RBC 3.58 M/mcL (3.82-4.97) L 11/12/18 03:43 Hct 34.8 % (35.3-44.9) L 11/12/18 03:43 APTT 37.4 Seconds (26.0-36.0) H 11/12/18 03:43 Glucose 121 mg/dL (70-105) H 11/12/18 03:43 Total Bilirubin 0.2 mg/dL (0.3-1.0) L 11/12/18 03:43 TSH 42.690 mcIU/mL (0.340-5.600) H 11/12/18 03:43 - Attending Attestation I saw and evaluated the patient. Discussed with resident and agree with residents findings and plan as documented in the residents note except as follow: Patient is ready t be discharged. Discussed again pain medication, explained to pt that her only long acting at this point is the Fentanyl patch, and that the ER oxycodone should be returned to the doctor's office to be discarded. Pt to continue IR oxycodone for breakthrough pain. She voiced understanding. 30 minutes advanced care planning, patient designated her daughter as MPOA, however Alma disagrees with patient's wishes to be DNR. Encouraged pt to discuss further with Alma and make sure she is the best MPOA choice. Patient at this point wants to remain FULL CODE until she can convince her daughter. Palliative Quality Code Status: 11/12/18 02:57 Resuscitation Status: Active [RES] Routine Comment: Resuscitation Status: Full Code 11/12/18 15:25 CODE [Resuscitation Status: Active] [RES] Routine Comment: Resuscitation Status: DNR-Comfort Care-Arrest 11/13/18 10:28 FULL [Resuscitation Status: Active] [RES] Routine Comment: Patient requests Code Status be change to FULL Resuscitation Status: Full Code - Labs CBC & Chem 7: 11/12/18 03:43 11/12/18 03:43 - ABG Interpretation ABG results: PT/INR, D-dimer PT 10.9 Seconds (9.4-12.1) 11/12/18 03:43
--- NOTE | 2018-11-13 10:49 | Discharge Summary ---
- NOTES TO OUTPATIENT PROVIDER Notes to Outpatient Provider: Patient was admitted for uncontrolled pain 2/2 her cancer. She was started on fentanyl patch with oncology service following. Her TSH is 42 however she had had a recent dose increase last month. Please follow on that. Orders not resulted at time of discharge: Pending orders 11/12/18 03:43 Culture,Blood [BC] Stat Date of Encounter: 11/13/18 Time of Encounter: 10:00 Hospital course: Ms. Mendez is a 53 year old female with history of hypothyroidism, hypertension, stage IV pancreatic adenocarcinoma on active chemotherapy who came into the hospital with uncontrolled pain secondary to her cancer. Apparently patient had to double dose on her oxycodone a day before admission due to her pain. CT of the abdomen revealed hypoattenuation area in the pancreatic body consistent with her cancer and ill-defined low-attenuation focus in her right hepatic lobe suspicious for metastatic disease. Patient was started on fentanyl patch with significant improvement in her symptoms. Oncology service was consulted and recommended to continue with fentanyl patch and oxycodone every 6 hours when necessary. Patient has an appointment on for her chemotherapy. I would provide her with a prescription of one patch of fentanyl only until she meets with her oncologist on . She was also found to have high TSH however her current dose was increased recen tly by her family doctor. Today, her pain is under better control. She will be discharged home in stable condition Discharge discussed with: patient - Time Spent with Patient Total time spent providing and/or coordinating discharge services: 42 minutes - Discharge Medications Prescriptions: New FentaNYL PATCH [Duragesic] 50 mcg TD Q72H 1 Days #1 patch.td72 Continued Methocarbamol [Robaxin] 375 mg PO TID Lisinopril [Zestril] 10 mg PO DAILY Albuterol Sulfate [Ventolin Hfa] 1 - 2 puff IH Q6H PRN PRN Reason: Shortness Of Breath Simvastatin [Zocor] 40 mg PO HS ALPRAZolam [Xanax 0.25 MG Tablet] 0.25 mg PO 1-2XD PRN PRN Reason: Anxiety Ergocalciferol (VITAMIN D2) [Vitamin D2] 50,000 unit PO QWEEK Ondansetron ODT [Zofran ODT] 4 mg SL Q6HR PRN #30 tab.rapdis PRN Reason: Nausea amLODIPine [Norvasc] 5 mg PO QAM Dexamethasone [Decadron] 8 mg PO DAILY Gabapentin [Neurontin] 300 mg PO TID Levothyroxine Sodium [Levoxyl] 125 mcg PO QAM Omeprazole [PriLOSEC] 20 mg PO BID PRN PRN Reason: GERD Oxycodone HCl [Roxybond] 5 mg PO Q6H PRN PRN Reason: Pain Promethazine HCl 12.5 mg PO Q4H PRN PRN Reason: NAUSEA/VOMITING Polyethylene Glycol 3350 [MiraLax bowel prep] 17 gm PO DAILY PRN PRN Reason: Constipation Naproxen Sodium [Aleve] 440 mg PO DAILY PRN PRN Reason: Pain Discontinued Oxycodone HCl [Oxycontin] 10 mg PO BID PRN PRN Reason: Pain Home Medications: Albuterol Sulfate [Ventolin Hfa] 1 - 2 puff IH Q6H PRN 11/01/16 [History] Lisinopril [Zestril] 10 mg PO DAILY 11/01/16 [History] Methocarbamol [Robaxin] 375 mg PO TID 11/01/16 [History] Simvastatin [Zocor] 40 mg PO HS 12/22/16 [History] ALPRAZolam [Xanax 0.25 MG Tablet] 0.25 mg PO 1-2XD PRN 02/23/18 [History] Ergocalciferol (VITAMIN D2) [Vitamin D2] 50,000 unit PO QWEEK 05/24/18 [History] Ondansetron ODT [Zofran ODT] 4 mg SL Q6HR PRN #30 tab.rapdis 09/04/18 [Rx] Dexamethasone [Decadron] 8 mg PO DAILY 11/12/18 [History] Gabapentin [Neurontin] 300 mg PO TID 11/12/18 [History] Levothyroxine Sodium [Levoxyl] 125 mcg PO QAM 11/12/18 [History] Naproxen Sodium [Aleve] 440 mg PO DAILY PRN 11/12/18 [History] Omeprazole [PriLOSEC] 20 mg PO BID PRN 11/12/18 [History] Oxycodone HCl [Roxybond] 5 mg PO Q6H PRN 11/12/18 [History] Polyethylene Glycol 3350 [MiraLax bowel prep] 17 gm PO DAILY PRN 11/12/18 [History] Promethazine HCl 12.5 mg PO Q4H PRN 11/12/18 [History] amLODIPine [Norvasc] 5 mg PO QAM 11/12/18 [History] FentaNYL PATCH [Duragesic] 50 mcg TD Q72H 1 Days #1 patch.td72 11/13/18 [Rx] Allergies/Adverse Reactions: Allergy/AdvReac Type Severity Reaction Status Date / Time Amoxicillin [From Augmentin] Allergy Rash, ITCH Verified 11/12/18 18:02 clavulanic acid Allergy Rash, ITCH Verified 11/12/18 18:02 [From Augmentin] morphine Allergy See Verified 11/12/18 18:02 Comments Date of admission: 11/12/18 02:06 Primary care physician: Rahul Yo MD Consults: 11/12/18 03:01 Consult to Palliative Care [CONS] Routine Comment: Consulting Provider: Palliative Care Veronica Reason for Consult: Patient with known metastatic pancreatic cancer who presents with uncontrolled pain syndrome Call Completed: No 11/12/18 10:01 Consult to Oncology Hematology [CONS] Routine Consulting Provider: Baljinder Corado Reason for Consult: known to you, pain management Call Completed: Yes - Constitutional Vitals: Temp Pulse Resp BP Pulse Ox 98.1 F 86 19 153/80 97 11/13/18 07:18 11/13/18 07:18 11/13/18 07:18 11/13/18 07:18 11/13/18 07:18 Exam: .General: Patient is alert, oriented 3. Head: Atraumatic, normal inspection, normocephalic. Eye: EOMI, PERRLA, no scleral icterus noted. ENT: Mucous membranes moist. No odontogenic infection noted. Neck: Normal inspection, no meningismus. Respiratory: No respiratory distress, rhonchi, or wheezes noted. Cardiovascular: Regular rate and regular rhythm, S1 and S2 audible. No murmurs, rubs, or gallops. GI: Soft, nondistended, normal bowel sounds. Extremities:No joint swelling, pedal edema, or tenderness noted. Neurological: Alert, oriented 3, no focal deficits. Psychiatric: normal affect, normal mood. Skin: Dry, intact, warm. Normal color. No rashes. - Patient Status Disposition: Home, Self-Care Condition: Good Functional capacity at discharge: uses cane/walker Overall status at discharge: patient is back to baseline - Discharge Instructions Follow Up With: Rahul Yo MD [Primary Care Provider] - - Diet and Activity Activity: resume usual activities as tolerated Diet: regular diet
== END 2018-11-13 11:37 | disposition home or self-care (01) ==
LOC: 2ANU 23:21 → EMEROOARM 23:21 → SUATTDRO 11-12 02:06 → 2ANU 11-12 03:11
PROVIDERS: ADMIT Internal Medicine; ATTEND Internal Medicine

== ENCOUNTER 2018-12-13 16:49 | Observation (INO) ==
--- NOTE | 2018-12-13 17:07 | Emergency Department Note ---
Disposition Clinical Impression: Dehydration, Pancreatic mass Disposition: Admitted As Inpatient Condition: Good Referrals: Rahul Yo MD [Primary Care Provider] - Forms: ED Satisfaction Letter Time of Disposition: 21:12 General Adult HPI - General Chief complaint: ED Nausea/Vomiting/Diarrhea Stated complaint: Pancreatic cancer Time Seen by Provider: 12/13/18 16:57 Source: patient Mode of arrival: EMS Limitations: no limitations Nursing Notes Reviewed: Yes Vital Signs Reviewed: Yes - History of Present Illness HPI Narrative: 53 yo woman with metastatic pancreatic cancer here 12/13/18 for N/V x1 week with inability to tolerate PO solids. Intermittent fever to 103F at home. Receiving chemo at the [facility] and is also under the care of Dr. Corado at [facility], who told her to come to the ED for admission. She has a port site on the right. PMH also significant for COPD, HTN. Patient is Full Code status. Pain Scale: 4 - Related Data Home Medications Medication Instructions Recorded Confirmed Albuterol Sulfate [Ventolin Hfa] 1 - 2 puff IH Q6H PRN 11/01/16 12/13/18 Lisinopril [Zestril] 10 mg PO DAILY 11/01/16 12/13/18 Methocarbamol [Robaxin] 375 mg PO TID 11/01/16 12/13/18 Simvastatin [Zocor] 40 mg PO HS 12/22/16 12/13/18 ALPRAZolam [Xanax 0.25 MG Tablet] 0.25 mg PO 1-2XD PRN 02/23/18 12/13/18 Ergocalciferol (VITAMIN D2) 50,000 unit PO QWEEK 05/24/18 12/13/18 [Vitamin D2] Gabapentin [Neurontin] 300 mg PO TID 11/12/18 12/13/18 Levothyroxine Sodium [Levoxyl] 125 mcg PO QAM 11/12/18 12/13/18 Naproxen Sodium [Aleve] 440 mg PO DAILY PRN 11/12/18 12/13/18 Omeprazole [PriLOSEC] 20 mg PO BID PRN 11/12/18 12/13/18 Oxycodone HCl [Roxybond] 10 mg PO Q6H PRN 11/12/18 12/13/18 Polyethylene Glycol 3350 [MiraLax 17 gm PO DAILY PRN 11/12/18 12/13/18 bowel prep] amLODIPine [Norvasc] 5 mg PO QAM 11/12/18 12/13/18 dexAMETHasone [Decadron] 8 mg PO DAILY 11/12/18 12/13/18 OxyCODONE ER (12 HR) [OxyCONTIN] 10 mg PO Q12HR 11/15/18 12/13/18 Previous Rx's Medication Instructions Recorded Ondansetron ODT [Zofran ODT] 4 mg SL Q6HR PRN #30 tab.rapdis 09/04/18 Promethazine [Phenergan] 12.5 mg RC Q6HR PRN #12 supp.rect 12/07/18 Allergies Allergy/AdvReac Type Severity Reaction Status Date / Time Amoxicillin [From Augmentin] Allergy Rash, ITCH Verified 12/07/18 15:58 clavulanic acid Allergy Rash, ITCH Verified 12/07/18 15:58 [From Augmentin] morphine Allergy See Verified 12/07/18 15:58 Comments All systems ED: reviewed and negative except as stated. Constitutional: Reports: fever Gastrointestinal: Reports: abdominal pain, nausea, vomiting Past Medical History - Past Medical History Attestation: Yes The following information was validated with the patient. Medical history: Reports: cancer, GERD, hyperlipidemia, hypertension, thyroid disease Surgical history: Reports: appendectomy, orthopedic, other Psychiatric history: Reports: anxiety, depression PEANUT SEPARATOR history: Reports: no PEANUT SEPARATOR history - Social History Smoking Status: Former smoker Smokeless Tobacco Status: No Alcohol use: Reports: none Drug use: Reports: none Physical Exam PE Gen: AOx3, NAD HEENT: No lymphadenopathy, no erythema, no edema. Pupils equal and reactive. Cardio: Regular rate and rhythm, no murmur, no peripheral edema, good perfusion to all extremities, no cyanosis Resp: Equal breath sounds bilaterally, no wheeze, no cough GI: Abdomen soft, nondistended, mildly tender to palpation in all quadrants. No ecchymoses, no rash. : No suprapubic tenderness or distention MSK: Normal ROM, no joint swelling or erythema. Port site on right dry, clean, no erythema or pain to palpation. Neuro: CNI-XII intact, strength and sensation WNL Psych: Appropriate affect - General General appearance: alert, in no apparent distress Course Course Narrative: VS stable, patient afebrile here. Initiated workup to identify source of infection, given reported fever at home with inability to tolerate PO solids for 1 week. Patient currently denying needs for medication. - Reevaluation(s) Reevaluation #1: Patient with increasing nausea. Waiting on IVF bolus and IV Zofran. Time: 18:16 Vital Signs Temperature 98.4 F 12/13/18 16:52 Pulse Rate 93 12/13/18 16:52 Respiratory Rate 15 12/13/18 16:52 Blood Pressure 126/84 12/13/18 16:52 O2 Sat by Pulse Oximetry 100 12/13/18 16:52 Temperature 98.4 F 12/13/18 18:36 Pulse Rate 89 12/13/18 20:32 Respiratory Rate 19 12/13/18 20:32 Blood Pressure 153/93 12/13/18 20:32 O2 Sat by Pulse Oximetry 100 12/13/18 20:32 Oxygen Delivery Oxygen Delivery Room Air Medical Decision Making - MDM Narrative Medical decision making narrative: Borderline Qtc prolongation on today's EKG at 505. Mild hypokalemia at 3.0; repleting at 10meq/hr via IV since patient cannot tolerate PO. UA consistent with decreased PO intake. CT abd/pelvis stable from prior imaging. No obvious source of infection found on CXR or UA also. Admitted for hydration following discussion with hospitalist. Patient agreed with plan. - Medical Records Medical records reviewed: Yes I reviewed the patient's medical records. - Lab Data Lab results reviewed: Yes I reviewed the patient's lab results. Result diagrams: 12/13/18 17:58 12/13/18 17:58 Lab Results 12/13/18 12/13/18 12/13/18 Range/Units 17:57 17:58 17:58 WBC 7.7 (4.3-11.1) K/mcL RBC 4.02 (3.82-4.97) M/mcL Hgb 13.1 (11.5-15.4) g/dL Hct 37.5 (35.3-44.9) % MCV 93.3 (83.0-100.0) fL MCH 32.6 (28.0-33.3) pg MCHC 34.9 (31.6-35.5) g/dL RDW 13.6 (11.5-14.5) % Plt Count 272 (140-400) K/mcL MPV 9.7 (9.4-12.4) fL Immature Gran % 0.4 (0-4) % Seg Neutrophils % 39.4 % Lymphocytes % 46.2 % Monocytes % 9.9 % Eosinophils % 3.3 % Basophils % 0.8 % Neutrophils # 3.0 (1.6-8.9) K/mcL Lymphocytes # 3.6 (0.6-4.6) K/mcL Monocytes # 0.8 (0.0-1.3) K/mcL Eosinophils # 0.3 (0.0-0.6) K/mcL Basophils # 0.1 (0.0-0.2) K/mcL Sodium 136 (136-145) mEq/L Potassium 3.0 L (3.5-5.1) mEq/L Chloride 100 (98-107) mEq/L Carbon Dioxide 25 (23-29) mEq/L BUN 17 (6-20) mg/dL Creatinine 0.88 (0.60-1.20) mg/dL Est GFR ( Amer) > 60 (> 60) Est GFR (Non-Af Amer) > 60 (> 60) BUN/Creatinine Ratio 19 (6-26) Glucose 109 H (70-105) mg/dL Calculated Osmolality 284 (280-300) Lactic Acid (0.5-2.2) mmol/L Calcium 9.3 (8.6-10.3) mg/dL Magnesium 2.1 (1.6-2.6) mg/dL Total Bilirubin 0.7 (0.3-1.0) mg/dL Direct Bilirubin (0.0-0.2) mg/dL Indirect Bilirubin (0.0-1.2) mg/dL AST 24 (13-39) Units/L ALT 26 (7-52) Units/L Alkaline Phosphatase 81 (34-104) Units/L Troponin I < 0.03 (< 0.04) ng/mL Serum Total Protein 7.3 (6.4-8.9) g/dL Albumin 4.2 (3.5-5.7) g/dL Globulin 3.1 (2.4-3.5) g/dL Albumin/Globulin Ratio 1.4 (1.1-2.2) Lipase (11-82) Units/L Urine Color [place] A (Yellow) Urine Clarity Clear (Clear) Urine pH 5.0 (5.0-8.0) pH Units Ur Specific [place]proof > 1.030 H (1.010-1.025) Urine Protein 30 H (Neg-Trace) mg/dL Urine Glucose (UA) Normal (Normal) mg/dL Urine Ketones 15 H (Negative) mg/dL Urine Blood Negative (Negative) Urine Nitrite Negative (Negative) Urine Bilirubin Large H (Negative) Urine Urobilinogen Normal (Normal) mg/dL Ur Leukocyte Esterase Trace H (Negative) Urine Microscopic RBC 0-3 (0-3) per hpf Urine Microscopic WBC 5-15 H (0-3) per hpf Ur Squamous Epith Cells Many H (None-Few) per lpf Urine Bacteria None Seen (None-Few) per hpf Ur Culture Indicated? YES A (NO) 12/13/18 12/13/18 Range/Units 17:58 17:58 WBC (4.3-11.1) K/mcL RBC (3.82-4.97) M/mcL Hgb (11.5-15.4) g/dL Hct (35.3-44.9) % MCV (83.0-100.0) fL MCH (28.0-33.3) pg MCHC (31.6-35.5) g/dL RDW (11.5-14.5) % Plt Count (140-400) K/mcL MPV (9.4-12.4) fL Immature Gran % (0-4) % Seg Neutrophils % % Lymphocytes % % Monocytes % % Eosinophils % % Basophils % % Neutrophils # (1.6-8.9) K/mcL Lymphocytes # (0.6-4.6) K/mcL Monocytes # (0.0-1.3) K/mcL Eosinophils # (0.0-0.6) K/mcL Basophils # (0.0-0.2) K/mcL Sodium (136-145) mEq/L Potassium (3.5-5.1) mEq/L Chloride (98-107) mEq/L Carbon Dioxide (23-29) mEq/L BUN (6-20) mg/dL Creatinine (0.60-1.20) mg/dL Est GFR ( Amer) (> 60) Est GFR (Non-Af Amer) (> 60) BUN/Creatinine Ratio (6-26) Glucose (70-105) mg/dL Calculated Osmolality (280-300) Lactic Acid 1.5 (0.5-2.2) mmol/L Calcium (8.6-10.3) mg/dL Magnesium (1.6-2.6) mg/dL Total Bilirubin 0.7 (0.3-1.0) mg/dL Direct Bilirubin 0.1 (0.0-0.2) mg/dL Indirect Bilirubin 0.6 (0.0-1.2) mg/dL AST 23 (13-39) Units/L ALT 25 (7-52) Units/L Alkaline Phosphatase 87 (34-104) Units/L Troponin I (< 0.04) ng/mL Serum Total Protein 7.3 (6.4-8.9) g/dL Albumin 4.3 (3.5-5.7) g/dL Globulin 3.0 (2.4-3.5) g/dL Albumin/Globulin Ratio 1.4 (1.1-2.2) Lipase 14 (11-82) Units/L Urine Color (Yellow) Urine Clarity (Clear) Urine pH (5.0-8.0) pH Units Ur Specific [place] (1.010-1.025) Urine Protein (Neg-Trace) mg/dL Urine Glucose (UA) (Normal) mg/dL Urine Ketones (Negative) mg/dL Urine Blood (Negative) Urine Nitrite (Negative) Urine Bilirubin (Negative) Urine Urobilinogen (Normal) mg/dL Ur Leukocyte Esterase (Negative) Urine Microscopic RBC (0-3) per hpf Urine Microscopic WBC (0-3) per hpf Ur Squamous Epith Cells (None-Few) per lpf Urine Bacteria (None-Few) per hpf Ur Culture Indicated? (NO) - Radiology Data Radiology results reviewed: Yes I reviewed the patient's radiology results. Chest X-Ray 12/13/18 17:07 IMPRESSION: No acute cardiopulmonary abnormality. D/ / James Ricci MD / James Ricci MD Interpreting Provider: James Ricci MD Abdomen/Pelvis CT 12/13/18 18:20 IMPRESSION: 1. No acute abnormality in the abdomen or pelvis. 2. Overall stable exam with an ill-defined hypodensity in the pancreatic body compatible with the known history of pancreatic cancer. Mild adjacent lymphadenopathy and ill-defined hypodensity in the right hepatic lobe without significant change. D/ / Harrison Vázquez MD / Harrison Vázquez MD Interpreting Provider: Harrison Vázquez MD - EKG Data EKG #1 EKG attestation: Yes I reviewed and interpreted this EKG. EKG shows normal: sinus rhythm Rate: normal Rhythm: NSR QTc: borderline (Qtc 505) When compared to previous EKG there are: no significant changes Interpretation: no acute changes
[2018-12-13] MEDS ORDERED: 0.9 % Sodium Chloride 1,000 ML IVC ONE (17:09)
[2018-12-13 18:06] LABS: Bilirubin,Urine Large (Negative); Blood,Urine Negative (Negative); Clarity,Urine Clear (Clear); Color,Urine Orange (Yellow); Glucose,Urine (UA) Normal (Normal); Ketones,Urine 15 mg/dL (Negative); Leukocyte Esterase,Urine Trace (Negative); Nitrite,Urine Negative (Negative); Protein,Urine 30 mg/dL (Neg-Trace); Specific Gravity,Urine > 1.030 (1.010-1.025); Urobilinogen,Urine Normal (Normal)
[2018-12-13 18:08] LABS: Bacteria,Urine None Seen per hpf (None-Few); RBC,Urine 0-3 per hpf (0-3); Squamous Epithelial Cell,Urine Many per lpf (None-Few)
[2018-12-13 18:12] LABS: Basophils # 0.1 K/mcL (0.0-0.2); Basophils % 0.8 %; Eosinophils # 0.3 K/mcL (0.0-0.6); Eosinophils % 3.3 %; Hematocrit 37.5 % (35.3-44.9); Hemoglobin 13.1 g/dL (11.5-15.4); Immature Granulocytes % 0.4 % (0-4); Lymphocytes # 3.6 K/mcL (0.6-4.6); Lymphocytes % 46.2 %; Mean Corpuscular HGB Conc 34.9 g/dL (31.6-35.5); Mean Corpuscular Hemoglobin 32.6 pg (28.0-33.3); Mean Corpuscular Volume 93.3 fL (83.0-100.0); Mean Platelet Volume 9.7 fL (9.4-12.4); Monocytes # 0.8 K/mcL (0.0-1.3); Monocytes % 9.9 %; Platelet Count 272 K/mcL (140-400); Red Blood Count 4.02 M/mcL (3.82-4.97); Red Cell Distribution Width 13.6 % (11.5-14.5); Segmented Neutrophils % 39.4 %; White Blood Count 7.7 K/mcL (4.3-11.1)
[2018-12-13] MEDS ORDERED: Ondansetron 4 MG/2 ML VIAL IVP ONE (18:14)
[2018-12-13] MEDS ORDERED: Isovue-370 500 ML BOTTLE IVP ONE (18:20)
[2018-12-13 18:31] LABS: Albumin 4.3 g/dL (3.5-5.7); Albumin/Globulin Ratio 1.4 (1.1-2.2); Bilirubin,Direct 0.1 mg/dL (0.0-0.2); Bilirubin,Indirect 0.6 mg/dL (0.0-1.2); Bilirubin,Total 0.7 mg/dL (0.3-1.0); Total Protein 7.3 g/dL (6.4-8.9)
[2018-12-13 18:33] LABS: Alanine Aminotransferase 26 Units/L (7-52); Albumin 4.2 g/dL (3.5-5.7); Albumin/Globulin Ratio 1.4 (1.1-2.2); Alkaline Phosphatase 81 Units/L (34-104); Aspartate Amino Transferase 24 Units/L (13-39); BUN/Creatinine Ratio 19 (6-26); Bilirubin,Total 0.7 mg/dL (0.3-1.0); Blood Urea Nitrogen 17 mg/dL (6-20); Calcium 9.3 mg/dL (8.6-10.3); Carbon Dioxide 25 mEq/L (23-29); Chloride 100 mEq/L (98-107); Globulin 3.1 g/dL (2.4-3.5); Glucose 109 mg/dL (70-105); Osmolality,Calculated 284 (280-300); Sodium 136 mEq/L (136-145); Total Protein 7.3 g/dL (6.4-8.9); eGFR For African Americans > 60 (> 60); eGFR For Non-African Americans > 60 (> 60)
[2018-12-13 18:34] LABS: Troponin I < 0.03 ng/mL (< 0.04)
[2018-12-13] MEDS ORDERED: *HR* HYDROmorphone (PF) 1 MG/ML SYRINGE IVP ONE (18:42)
--- NOTE | 2018-12-13 18:56 | Emergency Department Note ---
Disposition Clinical Impression: Dehydration, Pancreatic mass Disposition: Admitted As Inpatient Condition: Good Time of Disposition: 21:12 General Adult HPI - General Chief complaint: ED Nausea/Vomiting/Diarrhea Stated complaint: Pancreatic cancer Time Seen by Provider: 12/13/18 16:57 Source: patient Mode of arrival: EMS Limitations: no limitations - History of Present Illness Pain Scale: 4 - Related Data Home Medications Medication Instructions Recorded Confirmed Albuterol Sulfate [Ventolin Hfa] 1 - 2 puff IH Q6H PRN 11/01/16 12/13/18 Lisinopril [Zestril] 10 mg PO DAILY 11/01/16 12/13/18 Methocarbamol [Robaxin] 375 mg PO TID 11/01/16 12/13/18 ALPRAZolam [Xanax 0.25 MG Tablet] 0.25 mg PO 1-2XD PRN 02/23/18 12/13/18 Gabapentin [Neurontin] 300 mg PO TID 11/12/18 12/13/18 Levothyroxine Sodium [Levoxyl] 125 mcg PO QAM 11/12/18 12/13/18 Naproxen Sodium [Aleve] 440 mg PO DAILY PRN 11/12/18 12/13/18 Omeprazole [PriLOSEC] 20 mg PO BID PRN 11/12/18 12/13/18 Oxycodone HCl [Roxybond] 10 mg PO Q6H PRN 11/12/18 12/13/18 Polyethylene Glycol 3350 [MiraLax 17 gm PO DAILY PRN 11/12/18 12/13/18 bowel prep] amLODIPine [Norvasc] 5 mg PO QAM 11/12/18 12/13/18 dexAMETHasone [Decadron] 8 mg PO DAILY 11/12/18 12/13/18 OxyCODONE ER (12 HR) [OxyCONTIN] 10 mg PO Q12HR 11/15/18 12/13/18 Previous Rx's Medication Instructions Recorded Ondansetron ODT [Zofran ODT] 4 mg SL Q6HR PRN #30 tab.rapdis 09/04/18 Promethazine [Phenergan] 12.5 mg RC Q6HR PRN #12 supp.rect 12/07/18 Allergies Allergy/AdvReac Type Severity Reaction Status Date / Time Amoxicillin [From Augmentin] Allergy Rash, ITCH Verified 12/07/18 15:58 clavulanic acid Allergy Rash, ITCH Verified 12/07/18 15:58 [From Augmentin] morphine Allergy See Verified 12/07/18 15:58 Comments Constitutional: Reports: fever Gastrointestinal: Reports: abdominal pain, nausea, vomiting Past Medical History - Past Medical History Medical history: Reports: cancer, GERD, hyperlipidemia, hypertension, thyroid disease Surgical history: Reports: appendectomy, orthopedic, other Psychiatric history: Reports: anxiety, depression [employer]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 - Social History Smoking Status: Former smoker Smokeless Tobacco Status: No Alcohol use: Reports: none Drug use: Reports: none Physical Exam - General Limitations: no limitations General appearance: alert, in no apparent distress Course Vital Signs Temperature 98.4 F 12/13/18 16:52 Pulse Rate 93 12/13/18 16:52 Respiratory Rate 15 12/13/18 16:52 Blood Pressure 126/84 12/13/18 16:52 O2 Sat by Pulse Oximetry 100 12/13/18 16:52 Temperature 98.9 F 12/14/18 19:10 Pulse Rate 89 12/14/18 19:10 Respiratory Rate 15 12/14/18 19:10 Blood Pressure 120/71 12/14/18 19:10 O2 Sat by Pulse Oximetry 99 12/14/18 20:17 Oxygen Delivery Oxygen Delivery Room Air Medical Decision Making - Lab Data Result diagrams: 12/14/18 09:09 12/14/18 09:09 Lab Results 12/13/18 12/13/18 12/13/18 Range/Units 17:57 17:58 17:58 WBC 7.7 (4.3-11.1) K/mcL RBC 4.02 (3.82-4.97) M/mcL Hgb 13.1 (11.5-15.4) g/dL Hct 37.5 (35.3-44.9) % MCV 93.3 (83.0-100.0) fL MCH 32.6 (28.0-33.3) pg MCHC 34.9 (31.6-35.5) g/dL RDW 13.6 (11.5-14.5) % Plt Count 272 (140-400) K/mcL MPV 9.7 (9.4-12.4) fL Immature Gran % 0.4 (0-4) % Seg Neutrophils % 39.4 % Lymphocytes % 46.2 % Monocytes % 9.9 % Eosinophils % 3.3 % Basophils % 0.8 % Neutrophils # 3.0 (1.6-8.9) K/mcL Lymphocytes # 3.6 (0.6-4.6) K/mcL Monocytes # 0.8 (0.0-1.3) K/mcL Eosinophils # 0.3 (0.0-0.6) K/mcL Basophils # 0.1 (0.0-0.2) K/mcL Sodium 136 (136-145) mEq/L Potassium 3.0 L (3.5-5.1) mEq/L Chloride 100 (98-107) mEq/L Carbon Dioxide 25 (23-29) mEq/L BUN 17 (6-20) mg/dL Creatinine 0.88 (0.60-1.20) mg/dL Est GFR ( Amer) > 60 (> 60) Est GFR (Non-Af Amer) > 60 (> 60) BUN/Creatinine Ratio 19 (6-26) Glucose 109 H (70-105) mg/dL Calculated Osmolality 284 (280-300) Lactic Acid (0.5-2.2) mmol/L Calcium 9.3 (8.6-10.3) mg/dL Magnesium 2.1 (1.6-2.6) mg/dL Total Bilirubin 0.7 (0.3-1.0) mg/dL Direct Bilirubin (0.0-0.2) mg/dL Indirect Bilirubin (0.0-1.2) mg/dL AST 24 (13-39) Units/L ALT 26 (7-52) Units/L Alkaline Phosphatase 81 (34-104) Units/L Troponin I < 0.03 (< 0.04) ng/mL Serum Total Protein 7.3 (6.4-8.9) g/dL Albumin 4.2 (3.5-5.7) g/dL Globulin 3.1 (2.4-3.5) g/dL Albumin/Globulin Ratio 1.4 (1.1-2.2) Lipase (11-82) Units/L Urine Color [place] A (Yellow) Urine Clarity Clear (Clear) Urine pH 5.0 (5.0-8.0) pH Units Ur Specific [place] > 1.030 H (1.010-1.025) Urine Protein 30 H (Neg-Trace) mg/dL Urine Glucose (UA) Normal (Normal) mg/dL Urine Ketones 15 H (Negative) mg/dL Urine Blood Negative (Negative) Urine Nitrite Negative (Negative) Urine Bilirubin Large H (Negative) Urine Urobilinogen Normal (Normal) mg/dL Ur Leukocyte Esterase Trace H (Negative) Urine Microscopic RBC 0-3 (0-3) per hpf Urine Microscopic WBC 5-15 H (0-3) per hpf Ur Squamous Epith Cells Many H (None-Few) per lpf Urine Bacteria None Seen (None-Few) per hpf Ur Culture Indicated? YES A (NO) 12/13/18 12/13/18 Range/Units 17:58 17:58 WBC (4.3-11.1) K/mcL RBC (3.82-4.97) M/mcL Hgb (11.5-15.4) g/dL Hct (35.3-44.9) % MCV (83.0-100.0) fL MCH (28.0-33.3) pg MCHC (31.6-35.5) g/dL RDW (11.5-14.5) % Plt Count (140-400) K/mcL MPV (9.4-12.4) fL Immature Gran % (0-4) % Seg Neutrophils % % Lymphocytes % % Monocytes % % Eosinophils % % Basophils % % Neutrophils # (1.6-8.9) K/mcL Lymphocytes # (0.6-4.6) K/mcL Monocytes # (0.0-1.3) K/mcL Eosinophils # (0.0-0.6) K/mcL Basophils # (0.0-0.2) K/mcL Sodium (136-145) mEq/L Potassium (3.5-5.1) mEq/L Chloride (98-107) mEq/L Carbon Dioxide (23-29) mEq/L BUN (6-20) mg/dL Creatinine (0.60-1.20) mg/dL Est GFR ( Amer) (> 60) Est GFR (Non-Af Amer) (> 60) BUN/Creatinine Ratio (6-26) Glucose (70-105) mg/dL Calculated Osmolality (280-300) Lactic Acid 1.5 (0.5-2.2) mmol/L Calcium (8.6-10.3) mg/dL Magnesium (1.6-2.6) mg/dL Total Bilirubin 0.7 (0.3-1.0) mg/dL Direct Bilirubin 0.1 (0.0-0.2) mg/dL Indirect Bilirubin 0.6 (0.0-1.2) mg/dL AST 23 (13-39) Units/L ALT 25 (7-52) Units/L Alkaline Phosphatase 87 (34-104) Units/L Troponin I (< 0.04) ng/mL Serum Total Protein 7.3 (6.4-8.9) g/dL Albumin 4.3 (3.5-5.7) g/dL Globulin 3.0 (2.4-3.5) g/dL Albumin/Globulin Ratio 1.4 (1.1-2.2) Lipase 14 (11-82) Units/L Urine Color (Yellow) Urine Clarity (Clear) Urine pH (5.0-8.0) pH Units Ur Specific [place] (1.010-1.025) Urine Protein (Neg-Trace) mg/dL Urine Glucose (UA) (Normal) mg/dL Urine Ketones (Negative) mg/dL Urine Blood (Negative) Urine Nitrite (Negative) Urine Bilirubin (Negative) Urine Urobilinogen (Normal) mg/dL Ur Leukocyte Esterase (Negative) Urine Microscopic RBC (0-3) per hpf Urine Microscopic WBC (0-3) per hpf Ur Squamous Epith Cells (None-Few) per lpf Urine Bacteria (None-Few) per hpf Ur Culture Indicated? (NO) Attestation Statement - Attestation Attestation: I examined this patient and my medical decision-making was reviewed with the Resident Physician. I agree with the documented findings, disposition and treatment plan as described except to the extent set forth below. Patient 53-year-old female with prior history of pancreatic cancer that presents to the ER with chief complaint of vomiting. The patient reports is not able to keep anything down over the last several days states she is feeling extremely weak and tired and states that she is having generalized pain. Family patient is awake alert no acute distress, patient has diffuse tenderness throughout the abdomen Medical decision management letter studies were obtained of the patient which are currently pending CT scan of the abdomen and pelvis will be obtained plan will be to admit the patient locally due to her requesting to stay locally. This time.
[2018-12-13 20:00] LABS: Magnesium 2.1 mg/dL (1.6-2.6)
[2018-12-14] MEDS ORDERED: D5% in Water 1,000 ML IVC PRN (03:07)
[2018-12-14] MEDS ORDERED: Dextrose Gel 15 GM/37.5 ML TUBE PO PRN ×2 (03:07)
[2018-12-14] MEDS ORDERED: Naloxone 0.4 MG/ML INJ IVP PRN (03:07)
[2018-12-14] MEDS ORDERED: *HR* Dextrose 50 % in Water (Syg) 50 ML SYRINGE IVP PRN (03:07)
[2018-12-14] MEDS ORDERED: Ondansetron ODT 4 MG TAB.RAPDIS SL PRN (03:07)
[2018-12-14] MEDS ORDERED: Potassium Chloride Elixir 20 MEQ/15 ML UDC PO ONE (03:11)
--- NOTE | 2018-12-14 03:19 | Internal Med History&Physical ---
Date of Encounter: 12/14/18 Time of Encounter: 03:13 Internal Medicine - H&P: HPI Chief complaint: nausea and vomiting. Admitted From: Home History of present illness: Ms. 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 [id number] encounter occurred at 2:30 AM. Patient stated that she was diagnosed with pancreatic cancer stage IV back in February and has been undergoing chemotherapy. Patient stated that last week one of the chemotherapy drugs was discontinued due to neuropathy. After discontinuation the patient started experiencing nausea vomiting and generalized weakness and pain. Patient was sent home with chemotherapy running via the port on her right side. Patient went back to the exam oncologist on Monday for unplugging the medication sent with the patient. The patient after started experiencing nausea and vomiting intractable worsening. Patient reported more than 5 times today L is nonbloody and could not tolerate any oral intake even water. Patient also reported back pain that is worsened since last week that is in the left side low back pain that radiates to the rest of the body. The pain is sharp 10/10 last week that is intermittent and exacerbated with moving improves with rest no association of fever, chills, abdominal pain, chest pain, short as above. Patient reported the location is where the cancer have metastasized via PET scan . Patient past medical, surgical, family and social history was personally reviewed. CODE STATUS was discussed in detail and the patient proceeded with a full code . Past Med Surg Social Fam HX - Past Medical History Medical history: cancer, GERD, hyperlipidemia, hypertension, thyroid disease Additional medical history: Pancreatic cancer, neuropathy Psychiatric history: anxiety, depression - Past Surgical History Surgical History: appendectomy, orthopedic, other Additional surgical history: 3 back surgeries - Social History Smoking Status: Former smoker Smokeless Tobacco Status: No Alcohol use: none Drug use: none - Family History Mother Living Status: Still Living Hx Family Cardiac Disorders: Yes (cardiac stents) Hx Family Cancer: No (rectal cancer) Hx Family Endocrine Disorder: Yes (DM) Father Living Status: Hx Family Endocrine Disorder: Yes (DM) Internal Medicine - H&P: Meds Albuterol Sulfate [Ventolin Hfa] 1 - 2 puff IH Q6H PRN 11/01/16 [History] Lisinopril [Zestril] 10 mg PO DAILY 11/01/16 [History] Methocarbamol [Robaxin] 375 mg PO TID 11/01/16 [History] Simvastatin [Zocor] 40 mg PO HS 12/22/16 [History] ALPRAZolam [Xanax 0.25 MG Tablet] 0.25 mg PO 1-2XD PRN 02/23/18 [History] Ergocalciferol (VITAMIN D2) [Vitamin D2] 50,000 unit PO QWEEK 05/24/18 [History] Ondansetron ODT [Zofran ODT] 4 mg SL Q6HR PRN #30 tab.rapdis 09/04/18 [Rx] Gabapentin [Neurontin] 300 mg PO TID 11/12/18 [History] Levothyroxine Sodium [Levoxyl] 125 mcg PO QAM 11/12/18 [History] Naproxen Sodium [Aleve] 440 mg PO DAILY PRN 11/12/18 [History] Omeprazole [PriLOSEC] 20 mg PO BID PRN 11/12/18 [History] Oxycodone HCl [Roxybond] 10 mg PO Q6H PRN 11/12/18 [History] Polyethylene Glycol 3350 [MiraLax bowel prep] 17 gm PO DAILY PRN 11/12/18 [History] amLODIPine [Norvasc] 5 mg PO QAM 11/12/18 [History] dexAMETHasone [Decadron] 8 mg PO DAILY 11/12/18 [History] OxyCODONE ER (12 HR) [OxyCONTIN] 10 mg PO Q12HR 11/15/18 [History] Promethazine [Phenergan] 12.5 mg RC Q6HR PRN #12 supp.rect 12/07/18 [Rx] Allergy/AdvReac Type Severity Reaction Status Date / Time Amoxicillin [From Augmentin] Allergy Rash, ITCH Verified 12/07/18 15:58 clavulanic acid Allergy Rash, ITCH Verified 12/07/18 15:58 [From Augmentin] morphine Allergy See Verified 12/07/18 15:58 Comments All Systems PM: A 10-system review of systems was performed and is negative for pertinent findings except as documented above in the HPI. Review of systems: General: + unintentional weightloss, No fever, No night sweats. Head: No headahce, No injury. Ears: No discharge, No earache Eyes: No drainage, No eye pain Mouth and Throat: No new ulcers, No pain Nose and Sinus: No new congestion, No pain, Respiratory: No cough, No sputum production, No dyspnea Cardiovascular: No chest pain, No palpitations. Gastrointestinal: + nausea, + vomiting. Genital Tract: No discharge, No pain Urinary Tract: No dysuria, No discharge. MSK: +worsening joint pain or+worsening muscle ache. Endocrine: No cold intolerance, No polyuria Psychological: No suicidal, No homocidal ideation. - Constitutional Vitals: Temp Pulse Resp BP Pulse Ox 98.1 F 69 15 118/75 98 12/13/18 23:01 12/13/18 23:01 12/13/18 23:01 12/13/18 23:01 12/13/18 23:01 Exam: General Appearance: Appearing as age, well-nourished in moderate acute distress. Head: Atraumatic normocephalic Skin: Normal texture, dry turgor, warm, dry. right port present chest non infectious signs. surgical scars noted. Eyes: Conjunctivae not pale with no erythema, drainage, or ulcers. Anicteric. Neck: No Lymphadenopathy in the anterior/posterior cervical chain. No thyromegaly, masses or ulcers. Trachea midline. Heart: RRR, no murmurs. Capillary refill 3 seconds Lungs: No accessory muscle usage, lungs clear to auscultation bilaterally, no wheezes or crackles. Extremities: No pitting edema, clubbing, cyanosis, or ulcers. Abdomen: Non-distended, normoactive bowel sounds. generalized tendernes to palpation with No guarding. Neuro: AOx3 with no new sensory loss or focal deficits. MSK: Strength 5/5 Upper extremity equal bilaterally. Strength 5/5 Lower extremity equal bilaterally. low back pain patient refused for further evaluation limited to pain. Internal Med - H&P Results - Labs CBC & Chem 7: 12/13/18 17:58 12/13/18 17:58 Labs: Short CBC 12/13/18 Range/Units 17:58 WBC 7.7 (4.3-11.1) K/mcL Hgb 13.1 (11.5-15.4) g/dL Hct 37.5 (35.3-44.9) % Plt Count 272 (140-400) K/mcL Neutrophils # 3.0 (1.6-8.9) K/mcL BMP 12/13/18 17:58 Sodium 136 Potassium 3.0 L Chloride 100 Carbon Dioxide 25 BUN 17 Creatinine 0.88 Glucose 109 H Calcium 9.3 Cardiac Enzymes 12/13/18 Range/Units 17:58 Troponin I < 0.03 (< 0.04) ng/mL Liver Function 12/13/18 12/13/18 Range/Units 17:58 17:58 Total Bilirubin 0.7 0.7 (0.3-1.0) mg/dL Direct Bilirubin 0.1 (0.0-0.2) mg/dL AST 24 23 (13-39) Units/L ALT 26 25 (7-52) Units/L Alkaline Phosphatase 81 87 (34-104) Units/L Albumin 4.2 4.3 (3.5-5.7) g/dL Urine 12/13/18 Range/Units 17:57 Urine Color [place] A (Yellow) Urine Clarity Clear (Clear) Urine pH 5.0 (5.0-8.0) pH Units Ur Specific [place] > 1.030 H (1.010-1.025) Urine Protein 30 H (Neg-Trace) mg/dL Urine Glucose (UA) Normal (Normal) mg/dL - Impressions ITS Impressions Chest X-Ray 12/13/18 17:07 IMPRESSION: No acute cardiopulmonary abnormality. D/ / James Ricci MD / James Ricci MD Interpreting Provider: James Ricci MD Abdomen/Pelvis CT 12/13/18 18:20 IMPRESSION: 1. No acute abnormality in the abdomen or pelvis. 2. Overall stable exam with an ill-defined hypodensity in the pancreatic body compatible with the known history of pancreatic cancer. Mild adjacent lymphadenopathy and ill-defined hypodensity in the right hepatic lobe without significant change. D/ / Harrison Vázquez MD / Harrison Vázquez MD Interpreting Provider: Harrison Vázquez MD - Summary of Assessment and Plan Summary of Assessment and Plan: 1. Intractable nausea and vomiting: Unable tolerate oral intake. IVF and Zofran. We will continue to check. 2. Hypokalemia: Replaced 3. Elevated glucose A1c ordered. ISS with meals 4. Bilirubinemia, Unclear if a side effect of chemotherapy. 5. Acute on chronic back pain: No saddle anesthesia, weakness. Reported chronic neuropathy. PT evaluation. XR lumbar spine. We will defer to primary for further investigation Chronic medical condition: Stage IV pancreatic cancer: Patient would benefit from hospice care discussion and outpatient follow-up with in college in DVT prophylaxis: Heparin Disposition: Likely less than 2 days - Time Spent With Patient Total time spent is greater than 39 minutes 50% in coordination of care (as documented) at patient's floor/unit and/or counseling patient: Greater than 35 minutes
[2018-12-14] MEDS: Ringers Solution, Lactated 1,000 ML IVC SCH ×2 (03:41→12:19)
[2018-12-14] MEDS: *HR* Heparin 5,000 UNIT/ML VIAL SQ SCH ×3 (04:58→20:07)
[2018-12-14] MEDS ORDERED: Insulin LISPRO 300 UNITS/3 ML VIAL SQ SCH (07:30)
[2018-12-14 09:30] LABS: Basophils # 0.1 K/mcL (0.0-0.2); Basophils % 0.8 %; Eosinophils # 0.2 K/mcL (0.0-0.6); Eosinophils % 3.3 %; Immature Granulocytes % 0.3 % (0-4); Lymphocytes # 2.4 K/mcL (0.6-4.6); Lymphocytes % 38.5 %; Mean Corpuscular HGB Conc 33.5 g/dL (31.6-35.5); Mean Corpuscular Hemoglobin 32.9 pg (28.0-33.3); Mean Corpuscular Volume 98.3 fL (83.0-100.0); Monocytes # 0.7 K/mcL (0.0-1.3); Monocytes % 11.3 %; Neutrophils # 2.8 K/mcL (1.6-8.9); Platelet Count 199 K/mcL (140-400); Red Blood Count 3.46 M/mcL (3.82-4.97); Red Cell Distribution Width 13.6 % (11.5-14.5); Segmented Neutrophils % 45.8 %; White Blood Count 6.1 K/mcL (4.3-11.1)
--- NOTE | 2018-12-14 09:31 | Event Note ---
Date of Encounter: 12/14/18 Time of Encounter: 09:30 I have seen and evaluated the patient at bedside. H&P, vital signs, image and labs reviewed. Patient hemodynamically stable. will continue IV hydration, PPIs and anti-emetics. BMP ordered. will continue to follow up.
[2018-12-14] MEDS ORDERED: ALPRAZolam 0.25 MG TABLET PO PRN (09:32)
[2018-12-14 09:36] LABS: Hemoglobin 11.4 g/dL (11.5-15.4)
[2018-12-14] MEDS ORDERED: Methocarbamol 500 MG TABLET PO PRN (09:36)
[2018-12-14 09:48] LABS: Alanine Aminotransferase 21 Units/L (7-52); Albumin 3.8 g/dL (3.5-5.7); Albumin/Globulin Ratio 1.7 (1.1-2.2); Alkaline Phosphatase 74 Units/L (34-104); Aspartate Amino Transferase 21 Units/L (13-39); BUN/Creatinine Ratio 18 (6-26); Bilirubin,Total 0.7 mg/dL (0.3-1.0); Blood Urea Nitrogen 13 mg/dL (6-20); Calcium 8.6 mg/dL (8.6-10.3); Carbon Dioxide 24 mEq/L (23-29); Chloride 102 mEq/L (98-107); Globulin 2.3 g/dL (2.4-3.5); Glucose 139 mg/dL (70-105); Magnesium 1.9 mg/dL (1.6-2.6); Osmolality,Calculated 284 (280-300); Phosphorous 4.1 mg/dL (2.7-4.5); Potassium 3.3 mEq/L (3.5-5.1); Sodium 136 mEq/L (136-145); Total Protein 6.1 g/dL (6.4-8.9); eGFR For African Americans > 60 (> 60); eGFR For Non-African Americans > 60 (> 60)
[2018-12-14 10:02] LABS: Estimated Average Glucose 137 mg/dl
[2018-12-14] MEDS: dexAMETHasone 4 MG TABLET PO SCH ×2 (12:18→12:24)
[2018-12-14] MEDS: amLODIPine 5 MG TABLET PO SCH ×2 (12:18→12:22)
[2018-12-14] MEDS: Gabapentin 300 MG CAPSULE PO SCH ×2 (14:48→20:07)
--- NOTE | 2018-12-14 17:39 | Electrocardiograph Report ---
[email or web address] Test Date: 2018-12-13 Pat Name: Rachael Mendez Department: [id number] Room: 3A47 Gender: F Event Manager: : [id number] Requested By: Lina Sandra Order Number: [id number] Reading MD: Darrius Evans Measurements Intervals [place] Rate: 70 P: 40 DE: 178 QRS: 5 QRSD: 86 T: 12 QT: 468 QTc: 505 Interpretive Statements Sinus rhythm Probable left atrial enlargement Probable left ventricular hypertrophy Borderline prolonged QT interval Electronically Signed On 12-14-2018 17:38:13 EDT by Darrius Evans
[2018-12-15] MEDS: *HR* Heparin 5,000 UNIT/ML VIAL SQ SCH (05:42)
[2018-12-15 06:19] VITALS: BP 133/75
--- NOTE | 2018-12-15 08:33 | Discharge Summary ---
Orders not resulted at time of discharge: Pending orders 12/13/18 17:57 Culture,Urine [RM] Stat 12/14/18 04:00 Urinalysis reflex Microscopic [URIN] AM 0400 Date of Encounter: 12/15/18 Time of Encounter: 08:28 - Discharge Diagnosis (1) Dehydration Priority: Primary Status: Resolved (2) Anxiety Priority: Secondary Status: Chronic (3) COPD (chronic obstructive pulmonary disease) Priority: Secondary Status: Chronic Qualifiers: COPD type: emphysema Emphysema type: unspecified Qualified Code(s): J43.9 - Emphysema, unspecified (4) Cancer associated pain Priority: Secondary Status: Chronic (5) Hyperlipidemia Priority: Secondary Status: Chronic Qualifiers: Hyperlipidemia type: unspecified Qualified Code(s): E78.5 - Hyperlipidemia, unspecified (6) Nausea Priority: Primary Status: Chronic (7) Pancreatic adenocarcinoma Priority: Secondary Status: Chronic (8) Hypertension Priority: Secondary Status: Chronic Qualifiers: Hypertension type: essential hypertension Qualified Code(s): I10 - Essential (primary) hypertension (9) Vomiting Priority: Primary Status: Resolved Qualifiers: Vomiting type: unspecified Vomiting Intractability: unspecified Nausea presence: with nausea Qualified Code(s): R11.2 - Nausea with vomiting, unspecified Hospital course: Ms. Mendez is a 53 year old female past medical history of stage IV pancreatic cancer metastatic to the spleen, liver, and back status post chemotherapy, chronic back pain status post surgeries x2 presented to the ED for intractable nausea and vomiting unable to tolerate oral intake. Patient was admitted to the hospital due to dehydration secondary to nausea and vomiting. Patient was managed with IV hydration and IV anti-emetics. Patient acute symptoms have res olved, and patient is hemodynamically stable to be discharged home. Recommended to follow up with her PCP and or oncology for outpatient pain management referral. CT/CT abd pelvis w iv no oral IMPRESSION: 1. No acute abnormality in the abdomen or pelvis. 2. Overall stable exam with an ill-defined hypodensity in the pancreatic body compatible with the known history of pancreatic cancer. Mild ad jacent lymphadenopathy and ill-defined hypodensity in the right hepatic lobe without significant change. - Time Spent with Patient Total time spent providing and/or coordinating discharge services: Time spent: Greater than 30 minutes (35) - Discharge Medications Prescriptions: New Sennosides/Docusate Sodium [Senna Plus] 1 each PO DAILY 30 Days #30 tablet Continued Methocarbamol [Robaxin] 375 mg PO TID Lisinopril [Zestril] 10 mg PO DAILY Albuterol Sulfate [Ventolin Hfa] 1 - 2 puff IH Q6H PRN PRN Reason: Shortness Of Breath ALPRAZolam [Xanax 0.25 MG Tablet] 0.25 mg PO 1-2XD PRN PRN Reason: Anxiety amLODIPine [Norvasc] 5 mg PO QAM dexAMETHasone [Decadron] 8 mg PO DAILY Gabapentin [Neurontin] 300 mg PO TID Levothyroxine Sodium [Levoxyl] 125 mcg PO QAM Omeprazole [PriLOSEC] 20 mg PO BID PRN PRN Reason: GERD Polyethylene Glycol 3350 [MiraLax bowel prep] 17 gm PO DAILY PRN PRN Reason: Constipation Naproxen Sodium [Aleve] 440 mg PO DAILY PRN PRN Reason: Pain OxyCODONE ER (12 HR) [OxyCONTIN] 10 mg PO Q12HR 5 Days #10 tab.er.12h Promethazine [Phenergan] 12.5 mg RC Q6HR PRN 30 Days #90 supp.rect PRN Reason: Nausea Oxycodone HCl [Roxybond] 10 mg PO Q6H PRN 5 Days #10 tablet.orl PRN Reason: Pain Ondansetron ODT [Zofran ODT] 4 mg SL Q6HR PRN 30 Days #30 tab.rapdis PRN Reason: Nausea Home Medications: Albuterol Sulfate [Ventolin Hfa] 1 - 2 puff IH Q6H PRN 11/01/16 [History] Lisinopril [Zestril] 10 mg PO DAILY 11/01/16 [History] Methocarbamol [Robaxin] 375 mg PO TID 11/01/16 [History] ALPRAZolam [Xanax 0.25 MG Tablet] 0.25 mg PO 1-2XD PRN 02/23/18 [History] Gabapentin [Neurontin] 300 mg PO TID 11/12/18 [History] Levothyroxine Sodium [Levoxyl] 125 mcg PO QAM 11/12/18 [History] Naproxen Sodium [Aleve] 440 mg PO DAILY PRN 11/12/18 [History] Omeprazole [PriLOSEC] 20 mg PO BID PRN 11/12/18 [History] Polyethylene Glycol 3350 [MiraLax bowel prep] 17 gm PO DAILY PRN 11/12/18 [History] amLODIPine [Norvasc] 5 mg PO QAM 11/12/18 [History] dexAMETHasone [Decadron] 8 mg PO DAILY 11/12/18 [History] Ondansetron ODT [Zofran ODT] 4 mg SL Q6HR PRN 30 Days #30 tab.rapdis 12/15/18 [Rx] OxyCODONE ER (12 HR) [OxyCONTIN] 10 mg PO Q12HR 5 Days #10 tab.er.12h 12/15/18 [Rx] Oxycodone HCl [Roxybond] 10 mg PO Q6H PRN 5 Days #10 tablet.orl 12/15/18 [Rx] Promethazine [Phenergan] 12.5 mg RC Q6HR PRN 30 Days #90 supp.rect 12/15/18 [Rx] Sennosides/Docusate Sodium [Senna Plus] 1 each PO DAILY 30 Days #30 tablet 12/15/18 [Rx] Allergies/Adverse Reactions: Allergy/AdvReac Type Severity Reaction Status Date / Time Amoxicillin [From Augmentin] Allergy Rash, ITCH Verified 12/07/18 15:58 clavulanic acid Allergy Rash, ITCH Verified 12/07/18 15:58 [From Augmentin] morphine Allergy See Verified 12/07/18 15:58 Comments Date of admission: 12/13/18 21:11 Primary care physician: Rahul Yo MD Consults: 12/13/18 22:10 Consult to Nutrition [CONS] Routine Comment: Consulting Provider: NUTRITION Reason for Dietary Consult: MST Score 12/14/18 12:32 Consult to Director Physical Therapy [CONS] Stat Reason for SW Consult: transportation to chemo treatment - Constitutional Vitals: Temp Pulse Resp BP Pulse Ox 98.1 F 61 15 133/75 97 12/15/18 06:16 12/15/18 06:16 12/15/18 06:16 12/15/18 06:16 12/15/18 06:16 Exam: Vitals: Reviewed General: Alert and oriented x4. In no distress Skin: Normal color, no rash, no lesions. HEENT: EOM, pupils equal, round and reactive. Cardiovascular: RRR, normal S1 & S2, no rubs, murmurs or gallops. Lungs: CTA b/l, no wheezes or crackles. Abdomen: Soft, non-tender, no rigidity. Extremities: No deformity, no edema or tenderness, no joint swelling or clubbing. Neurological: Normal cognition and motor skills. Rest of the physical exam is non contributory - Patient Status Disposition: Home, Self-Care Condition: Good Functional capacity at discharge: independent ambulation Overall status at discharge: patient is back to baseline - Discharge Instructions Follow Up With: Rahul Yo MD [Primary Care Provider] - - Diet and Activity Activity: resume usual activities as tolerated Diet: low salt diet
[2018-12-15] MEDS: Gabapentin 300 MG CAPSULE PO SCH (09:50)
[2018-12-15] MEDS: amLODIPine 5 MG TABLET PO SCH (09:50)
[2018-12-15] MEDS: dexAMETHasone 4 MG TABLET PO SCH (09:51)
== END 2018-12-15 10:42 | disposition home or self-care (01) ==
LOC: EMEROOARM 16:49 → 3ANU 16:49
PROVIDERS: ADMIT Family Medicine; ATTEND Family Medicine

== ENCOUNTER 2019-03-12 15:31 | Observation (INO) ==
[2019-03-12] MEDS ORDERED: 0.9 % Sodium Chloride 1,000 ML IVC ONE (15:46)
[2019-03-12] MEDS ORDERED: Ondansetron 4 MG/2 ML VIAL IVP ONE (15:46)
[2019-03-12] MEDS ORDERED: *HR* HYDROmorphone (PF) 1 MG/ML SYRINGE IVP ONE ×2 (15:48→18:20)
[2019-03-12] MEDS ORDERED: Ketamine *HR* 20 MG in 0.9 % Sodium Chloride 100 ML IVPB ONE (16:07)
[2019-03-12 16:31] LABS: Basophils # 0.1 K/mcL (0.0-0.2); Basophils % 1.1 %; Eosinophils # 0.1 K/mcL (0.0-0.6); Eosinophils % 1.5 %; Hematocrit 34.6 % (35.3-44.9); Hemoglobin 11.9 g/dL (11.5-15.4); Immature Granulocytes % 1.1 % (0-4); Lymphocytes # 1.7 K/mcL (0.6-4.6); Lymphocytes % 25.5 %; Mean Corpuscular HGB Conc 34.4 g/dL (31.6-35.5); Mean Corpuscular Hemoglobin 31.6 pg (28.0-33.3); Mean Corpuscular Volume 91.8 fL (83.0-100.0); Mean Platelet Volume 9.6 fL (9.4-12.4); Monocytes # 0.6 K/mcL (0.0-1.3); Monocytes % 9.5 %; Platelet Count 298 K/mcL (140-400); Red Blood Count 3.77 M/mcL (3.82-4.97); Red Cell Distribution Width 13.2 % (11.5-14.5); Segmented Neutrophils % 61.3 %; White Blood Count 6.5 K/mcL (4.3-11.1)
[2019-03-12 17:31] LABS: Alanine Aminotransferase 11 Units/L (7-52); Albumin 3.7 g/dL (3.5-5.7); Alkaline Phosphatase 90 Units/L (34-104); Aspartate Amino Transferase 20 Units/L (13-39); BUN/Creatinine Ratio 20 (6-26); Bilirubin,Direct 0.2 mg/dL (0.0-0.2); Bilirubin,Indirect 0.4 mg/dL (0.0-1.0); Bilirubin,Total 0.6 mg/dL (0.3-1.0); Blood Urea Nitrogen 10 mg/dL (6-20); Calcium 9.3 mg/dL (8.6-10.3); Carbon Dioxide 23 mEq/L (23-29); Chloride 98 mEq/L (98-107); Globulin 3.7 g/dL (2.4-3.5); Glucose 109 mg/dL (70-105); Lipase 16 Units/L (11-82); Osmolality,Calculated 286 (280-300); Phosphorous 1.8 mg/dL (2.7-4.5); Potassium 2.9 mEq/L (3.5-5.1); Sodium 138 mEq/L (136-145); Total Protein 7.4 g/dL (6.4-8.9); Uric Acid 5.5 mg/dL (2.3-7.6); eGFR For African Americans > 60 (> 60); eGFR For Non-African Americans > 60 (> 60)
[2019-03-12] MEDS ORDERED: Lidocaine -MPF 2% 5 ML VIAL INFILT ONE (17:34)
[2019-03-12] MEDS ORDERED: Lidocaine -MPF 1% 2 ML VIAL ONE (17:44)
[2019-03-12 19:41] LABS: Bilirubin,Urine Small (Negative); Blood,Urine Moderate (Negative); Clarity,Urine Clear (Clear); Color,Urine Yellow (Yellow); Glucose,Urine (UA) Normal (Normal); Ketones,Urine >=160 mg/dL (Negative); Leukocyte Esterase,Urine Negative (Negative); Nitrite,Urine Negative (Negative); PH,Urine 6.5 pH Units (5.0-8.0); Protein,Urine 30 mg/dL (Neg-Trace); Specific Gravity,Urine 1.025 (1.010-1.025); Urobilinogen,Urine Normal (Normal)
[2019-03-12 19:43] LABS: Bacteria,Urine None Seen per hpf (None-Few); Hyaline Casts,Urine None Seen per lpf (None-Few); Squamous Epithelial Cell,Urine Many per lpf (None-Few); WBC,Urine 0-3 per hpf (0-3)
[2019-03-12] MEDS ORDERED: Potassium Phosphate 44 MEQ in 0.9 % Sodium Chloride 250 ML IVPB ONE (19:50)
[2019-03-12] MEDS ORDERED: Ondansetron 4 MG/2 ML VIAL IVP PRN (21:47)
[2019-03-12] MEDS ORDERED: *HR* Promethazine 25 MG/ML VIAL IVP PRN (21:47)
[2019-03-12] MEDS ORDERED: ALPRAZolam 0.25 MG TABLET PO PRN (22:15)
[2019-03-12] MEDS ORDERED: dexAMETHasone 4 MG TABLET PO SCH (22:15)
[2019-03-12] MEDS: *HR* OxyCODONE ER (12 HR) 20 MG TABLET PO SCH (22:31)
[2019-03-12] MEDS: *HR* Heparin 5,000 UNIT/ML VIAL SQ SCH (22:32)
[2019-03-13] MEDS: Ringers Solution, Lactated 1,000 ML IVC SCH ×2 (03:27→09:09)
[2019-03-13] MEDS: *HR* HYDROmorphone 2 MG/ML SYRINGE IVP PRN ×4 (03:40→22:32)
[2019-03-13 04:27] LABS: BUN/Creatinine Ratio 17 (6-26); Blood Urea Nitrogen 8 mg/dL (6-20); Calcium 8.3 mg/dL (8.6-10.3); Carbon Dioxide 25 mEq/L (23-29); Chloride 100 mEq/L (98-107); Glucose 108 mg/dL (70-105); Magnesium 1.7 mg/dL (1.6-2.6); Osmolality,Calculated 283 (280-300); Phosphorous 4.3 mg/dL (2.7-4.5); Potassium 3.1 mEq/L (3.5-5.1); Sodium 137 mEq/L (136-145); eGFR For African Americans > 60 (> 60); eGFR For Non-African Americans > 60 (> 60)
[2019-03-13] MEDS: *HR* Heparin 5,000 UNIT/ML VIAL SQ SCH ×3 (06:06→22:26)
[2019-03-13] MEDS: Gabapentin 300 MG CAPSULE PO SCH ×3 (08:44→22:27)
[2019-03-13] MEDS: Sennosides/Docusate Sodium TABLET PO SCH (08:45)
[2019-03-13] MEDS: *HR* OxyCODONE ER (12 HR) 20 MG TABLET PO SCH ×2 (08:45→22:27)
[2019-03-13] MEDS: Methocarbamol 750 MG TABLET PO SCH ×3 (08:45→22:27)
[2019-03-13] MEDS: amLODIPine 5 MG TABLET PO SCH (08:45)
[2019-03-13] MEDS: Lisinopril 20 MG TABLET PO SCH (08:45)
[2019-03-14] MEDS: *HR* HYDROmorphone 2 MG/ML SYRINGE IVP PRN ×4 (03:40→13:40)
[2019-03-14] MEDS: *HR* Heparin 5,000 UNIT/ML VIAL SQ SCH ×2 (03:57→13:43)
[2019-03-14 04:18] LABS: Basophils # 0.1 K/mcL (0.0-0.2); Basophils % 1.1 %; Eosinophils # 0.3 K/mcL (0.0-0.6); Eosinophils % 4.1 %; Hematocrit 33.5 % (35.3-44.9); Hemoglobin 11.1 g/dL (11.5-15.4); Immature Granulocytes % 0.7 % (0-4); Lymphocytes # 2.9 K/mcL (0.6-4.6); Mean Corpuscular HGB Conc 33.1 g/dL (31.6-35.5); Mean Corpuscular Volume 96.5 fL (83.0-100.0); Mean Platelet Volume 9.4 fL (9.4-12.4); Monocytes # 0.7 K/mcL (0.0-1.3); Neutrophils # 3.5 K/mcL (1.6-8.9); Platelet Count 227 K/mcL (140-400); Red Blood Count 3.47 M/mcL (3.82-4.97); Red Cell Distribution Width 13.2 % (11.5-14.5); Segmented Neutrophils % 47.1 %; White Blood Count 7.5 K/mcL (4.3-11.1)
[2019-03-14 04:37] LABS: BUN/Creatinine Ratio 10 (6-26); Blood Urea Nitrogen 4 mg/dL (6-20); Calcium 8.5 mg/dL (8.6-10.3); Carbon Dioxide 24 mEq/L (23-29); Chloride 99 mEq/L (98-107); Glucose 84 mg/dL (70-105); Osmolality,Calculated 278 (280-300); Potassium 3.1 mEq/L (3.5-5.1); Sodium 136 mEq/L (136-145); eGFR For African Americans > 60 (> 60); eGFR For Non-African Americans > 60 (> 60)
[2019-03-14] MEDS: Gabapentin 300 MG CAPSULE PO SCH (09:47)
[2019-03-14] MEDS: Methocarbamol 750 MG TABLET PO SCH (09:47)
[2019-03-14] MEDS: *HR* OxyCODONE ER (12 HR) 20 MG TABLET PO SCH (09:47)
[2019-03-14] MEDS: amLODIPine 5 MG TABLET PO SCH (09:48)
[2019-03-14] MEDS: Lisinopril 20 MG TABLET PO SCH (09:48)
[2019-03-14] MEDS: Sennosides/Docusate Sodium TABLET PO SCH (09:48)
[2019-03-14 11:35] VITALS: BP 146/72
[2019-03-17] MEDS ORDERED: Cholecalciferol (D-3) 1,000 UNIT (25MCG) TABLET PO SCH (09:00)
== END 2019-03-14 16:26 | disposition home or self-care (01) ==
LOC: 3ANU 15:31 → EMEROOARM 15:31 → SUATTDRO 20:40 → 3ANU 21:50
PROVIDERS: ADMIT Internal Medicine; ATTEND Family Medicine

== ENCOUNTER 2019-10-01 23:56 | Inpatient (IN) ==
[2019-10-02] MEDS ORDERED: *HR* HYDROmorphone (PF) 1 MG/ML SYRINGE IVP ONE ×4 (00:22→05:45)
[2019-10-02] MEDS ORDERED: *HR* Promethazine 25 MG/ML VIAL IVP ONE (00:22)
[2019-10-02] MEDS ORDERED: 0.9 % Sodium Chloride 1,000 ML IV ONE (00:24)
[2019-10-02 02:29] LABS: Basophils % 0.1 %; Hematocrit 25.8 % (35.3-44.9); Hemoglobin 8.3 g/dL (11.5-15.4); Immature Granulocytes % 0.9 % (0-4); Lymphocytes # 0.5 K/mcL (0.6-4.6); Lymphocytes % 6.4 %; Mean Corpuscular HGB Conc 32.2 g/dL (31.6-35.5); Mean Corpuscular Hemoglobin 31.4 pg (28.0-33.3); Mean Corpuscular Volume 97.7 fL (83.0-100.0); Mean Platelet Volume 9.8 fL (9.4-12.4); Monocytes # 0.5 K/mcL (0.0-1.3); Monocytes % 6.1 %; Neutrophils # 6.5 K/mcL (1.6-8.9); Platelet Count 226 K/mcL (140-400); Red Blood Count 2.64 M/mcL (3.82-4.97); Red Cell Distribution Width 15.2 % (11.5-14.5); Segmented Neutrophils % 86.5 %; White Blood Count 7.5 K/mcL (4.3-11.1)
[2019-10-02 02:39] LABS: Alanine Aminotransferase 22 Units/L (7-52); Albumin 3.4 g/dL (3.5-5.7); Albumin/Globulin Ratio 1.2 (1.1-2.2); Alkaline Phosphatase 261 Units/L (34-104); Amylase 28 Units/L (29-103); Aspartate Amino Transferase 23 Units/L (13-39); BUN/Creatinine Ratio 37 (6-26); Bilirubin,Total 0.8 mg/dL (0.3-1.0); Blood Urea Nitrogen 15 mg/dL (6-20); Calcium 8.4 mg/dL (8.6-10.3); Carbon Dioxide 28 mEq/L (23-29); Chloride 98 mEq/L (98-107); Globulin 2.8 g/dL (2.4-3.5); Glucose 105 mg/dL (70-105); Lipase < 3 Units/L (11-82); Osmolality,Calculated 277 (280-300); Potassium 3.5 mEq/L (3.5-5.1); Sodium 133 mEq/L (136-145); Total Protein 6.2 g/dL (6.4-8.9); eGFR For African Americans > 60 (> 60); eGFR For Non-African Americans > 60 (> 60)
[2019-10-02] MEDS ORDERED: Isovue-370 500 ML BOTTLE IVP ONE (03:06)
[2019-10-02] MEDS ORDERED: *HR* HYDROmorphone 2 MG/ML SYRINGE IVP ONE (05:04)
[2019-10-02] MEDS ORDERED: Naloxone 0.4 MG/ML INJ IVP PRN (05:05)
[2019-10-02] MEDS ORDERED: Scopolamine Patch 1.5 MG PATCH.TD72 TD ONE (05:10)
[2019-10-02] MEDS ORDERED: ALPRAZolam 0.5 MG TABLET PO PRN (05:15)
[2019-10-02] MEDS: 0.9 % Sodium Chloride w KCl 20 MEQ/1,000 ML MLS IVC SCH ×2 (05:51→19:50)
[2019-10-02] MEDS: *HR* Heparin 5,000 UNIT/ML VIAL SQ SCH ×2 (05:52→17:03)
[2019-10-02 06:29] LABS: Bacteria,Urine Few per hpf (None-Few); Bilirubin,Urine Negative (Negative); Blood,Urine Negative (Negative); Clarity,Urine Clear (Clear); Color,Urine Colorless (Yellow); Glucose,Urine (UA) Normal (Normal); Ketones,Urine 40 mg/dL (Negative); Leukocyte Esterase,Urine Small (Negative); Mucus,Urine Few per lpf (None-Few); Nitrite,Urine Negative (Negative); Protein,Urine 30 mg/dL (Neg-Trace); RBC,Urine 0-3 per hpf (0-3); Specific Gravity,Urine > 1.030 (1.010-1.025); Squamous Epithelial Cell,Urine Few per hpf (None-Few); Urobilinogen,Urine Normal (Normal)
[2019-10-02] MEDS ORDERED: *HR* OxyCODONE/APAP 10/325 TABLET PO PRN (08:13)
[2019-10-02] MEDS ORDERED: Acetaminophen IV 500 MG/50 ML INFUS..BTL IVPB ONE (08:14)
[2019-10-02] MEDS: *HR* HYDROmorphone (PF) 1 MG/ML SYRINGE IVP PRN (08:26)
[2019-10-02] MEDS ORDERED: *HR* HYDROmorphone 20 MG/20 ML PCA IVC PRN (08:30)
[2019-10-02] MEDS ORDERED: HYDROMORPHONE HCL 8 MG PO SCH (09:00)
[2019-10-02] MEDS: lisinopriL 20 MG TABLET PO SCH (12:18)
[2019-10-02] MEDS: Aspirin Enteric Coated 81 MG Tablet PO SCH (12:18)
[2019-10-02] MEDS: methocarbamoL 750 MG TABLET PO SCH ×3 (12:18→19:52)
[2019-10-02] MEDS: Pregabalin 75 MG CAPSULE PO SCH ×2 (12:19→19:52)
[2019-10-02] MEDS: Acetaminophen 325 MG TABLET PO PRN (14:35)
[2019-10-02] MEDS: carvediloL 6.25 MG TABLET PO SCH ×2 (14:36→19:50)
[2019-10-03] MEDS: *HR* OxyCODONE ER (12 HR) 10 MG TABLET PO SCH ×2 (00:31→14:26)
[2019-10-03] MEDS ORDERED: *HR* Promethazine 25 MG/ML VIAL IVP PRN (01:28)
[2019-10-03] MEDS ORDERED: *HR* HYDROmorphone 20 MG/20 ML PCA IVC PRN (02:01)
[2019-10-03] MEDS: *HR* Heparin 5,000 UNIT/ML VIAL SQ SCH ×2 (04:05→17:11)
[2019-10-03 04:45] LABS: Basophils % 0.4 %; Eosinophils # 0.1 K/mcL (0.0-0.6); Eosinophils % 1.2 %; Hematocrit 24.8 % (35.3-44.9); Immature Granulocytes % 1.2 % (0-4); Lymphocytes # 1.3 K/mcL (0.6-4.6); Lymphocytes % 15.6 %; Mean Corpuscular HGB Conc 32.3 g/dL (31.6-35.5); Mean Corpuscular Hemoglobin 31.7 pg (28.0-33.3); Mean Corpuscular Volume 98.4 fL (83.0-100.0); Mean Platelet Volume 10.3 fL (9.4-12.4); Monocytes # 0.8 K/mcL (0.0-1.3); Monocytes % 9.5 %; Neutrophils # 6.1 K/mcL (1.6-8.9); Platelet Count 192 K/mcL (140-400); Red Blood Count 2.52 M/mcL (3.82-4.97); Red Cell Distribution Width 15.6 % (11.5-14.5); Segmented Neutrophils % 72.1 %; White Blood Count 8.5 K/mcL (4.3-11.1)
[2019-10-03 05:05] LABS: BUN/Creatinine Ratio 31 (6-26); Blood Urea Nitrogen 12 mg/dL (6-20); Calcium 8.1 mg/dL (8.6-10.3); Carbon Dioxide 25 mEq/L (23-29); Chloride 103 mEq/L (98-107); Glucose 85 mg/dL (70-105); Magnesium 1.7 mg/dL (1.6-2.6); Osmolality,Calculated 279 (280-300); Phosphorous 2.4 mg/dL (2.7-4.5); Potassium 3.6 mEq/L (3.5-5.1); Sodium 135 mEq/L (136-145); eGFR For African Americans > 60 (> 60); eGFR For Non-African Americans > 60 (> 60)
[2019-10-03] MEDS: *HR* HYDROmorphone (PF) 1 MG/ML SYRINGE IVP PRN ×4 (10:26→23:15)
[2019-10-03] MEDS ORDERED: 0.9 % Sodium Chloride 1,000 ML ONE (10:55)
[2019-10-03] MEDS ORDERED: 0.9 % Sodium Chloride 1,000 ML IVC SCH (11:00)
[2019-10-03] MEDS ORDERED: Ondansetron ODT 4 MG TAB.RAPDIS SL PRN (11:56)
[2019-10-03] MEDS: *HR* OxyCODONE Immed Rel 5 MG TABLET PO SCH ×3 (13:59→20:36)
[2019-10-03] MEDS: carvediloL 6.25 MG TABLET PO SCH ×2 (14:26→17:05)
[2019-10-03] MEDS: dexAMETHasone 4 MG TABLET PO SCH ×2 (14:26→17:06)
[2019-10-03] MEDS: Aspirin Enteric Coated 81 MG Tablet PO SCH (14:27)
[2019-10-03] MEDS: Pregabalin 75 MG CAPSULE PO SCH ×3 (14:27→20:53)
[2019-10-03] MEDS: lisinopriL 20 MG TABLET PO SCH (14:27)
[2019-10-03] MEDS: methocarbamoL 750 MG TABLET PO SCH ×3 (14:27→20:37)
[2019-10-03] MEDS: Celecoxib 200 MG CAPSULE PO SCH (17:12)
[2019-10-03] MEDS: Acetaminophen 325 MG TABLET PO PRN (19:01)
[2019-10-04] MEDS: *HR* OxyCODONE Immed Rel 5 MG TABLET PO SCH ×3 (00:48→08:04)
[2019-10-04] MEDS ORDERED: *HR* HYDROmorphone (PF) 1 MG/ML SYRINGE IVP ONE (02:05)
[2019-10-04] MEDS: *HR* Heparin 5,000 UNIT/ML VIAL SQ SCH (05:01)
[2019-10-04] MEDS: *HR* HYDROmorphone (PF) 1 MG/ML SYRINGE IVP PRN ×2 (05:21→10:27)
[2019-10-04 05:31] LABS: BUN/Creatinine Ratio 24 (6-26); Blood Urea Nitrogen 11 mg/dL (6-20); Calcium 8.2 mg/dL (8.6-10.3); Carbon Dioxide 23 mEq/L (23-29); Chloride 100 mEq/L (98-107); Glucose 96 mg/dL (70-105); Magnesium 1.8 mg/dL (1.6-2.6); Osmolality,Calculated 273 (280-300); Phosphorous 3.7 mg/dL (2.7-4.5); Potassium 3.9 mEq/L (3.5-5.1); Sodium 132 mEq/L (136-145); eGFR For African Americans > 60 (> 60); eGFR For Non-African Americans > 60 (> 60)
[2019-10-04] MEDS: carvediloL 6.25 MG TABLET PO SCH (08:07)
[2019-10-04] MEDS: dexAMETHasone 4 MG TABLET PO SCH (08:07)
[2019-10-04] MEDS: lisinopriL 20 MG TABLET PO SCH (08:07)
[2019-10-04] MEDS: Celecoxib 200 MG CAPSULE PO SCH (08:07)
[2019-10-04] MEDS: Aspirin Enteric Coated 81 MG Tablet PO SCH (08:08)
[2019-10-04] MEDS: Pregabalin 75 MG CAPSULE PO SCH (08:08)
[2019-10-04] MEDS: methocarbamoL 750 MG TABLET PO SCH (08:08)
[2019-10-04 10:50] VITALS: BP 165/90
== END 2019-10-04 12:04 | disposition home or self-care (01) | DRG 948 ==
LOC: 3NENU 23:56 → EMEROOARM 23:56 → SUATTDRO 10-02 04:42 → 3NENU 10-02 05:03
PROVIDERS: ADMIT Internal Medicine; ATTEND Internal Medicine

== ENCOUNTER 2019-10-26 10:50 | Observation (INO) ==
[2019-10-26] MEDS ORDERED: Ondansetron 4 MG/2 ML VIAL IVP ONE (11:06)
[2019-10-26] MEDS ORDERED: 0.9 % Sodium Chloride 1,000 ML IVC ONE ×2 (11:06→13:03)
[2019-10-26] MEDS ORDERED: *HR* HYDROmorphone (PF) 1 MG/ML SYRINGE IVP ONE ×2 (11:07→13:58)
[2019-10-26 12:22] LABS: Eosinophils # 0.1 K/mcL (0.0-0.6); Hematocrit 21.8 % (35.3-44.9); Hemoglobin 7.1 g/dL (11.5-15.4); Immature Platelets 6.6 % (1.1-6.1); Mean Corpuscular HGB Conc 32.6 g/dL (31.6-35.5); Mean Corpuscular Volume 95.2 fL (83.0-100.0); Mean Platelet Volume 11.1 fL (9.4-12.4); Nucleated Red Blood Cells 0.7 /100 WBC (0); Red Blood Count 2.29 M/mcL (3.82-4.97); Red Cell Distribution Width 15.4 % (11.5-14.5); White Blood Count 4.6 K/mcL (4.3-11.1)
[2019-10-26 12:27] LABS: Platelet Count 71 K/mcL (140-400)
[2019-10-26 12:36] LABS: BUN/Creatinine Ratio 19 (6-26); Blood Urea Nitrogen 11 mg/dL (6-20); Calcium 8.3 mg/dL (8.6-10.3); Carbon Dioxide 27 mEq/L (23-29); Chloride 101 mEq/L (98-107); Glucose 107 mg/dL (70-105); Osmolality,Calculated 280 (280-300); Potassium 3.1 mEq/L (3.5-5.1); Sodium 135 mEq/L (136-145); eGFR For African Americans > 60 (> 60); eGFR For Non-African Americans > 60 (> 60)
[2019-10-26 12:37] LABS: Troponin I < 0.03 ng/mL (< 0.04)
[2019-10-26] MEDS ORDERED: Potassium Effervescent 25 MEQ TABLET.EFF PO ONE (12:47)
[2019-10-26 13:03] LABS: Dohle Bodies Present (Not Present); Monocytes # 0.6 K/mcL (0.0-1.3); Neutrophils # 2.9 K/mcL (1.6-8.9); Toxic Granulation Present (Not Present)
[2019-10-26 13:04] LABS: Platelet Estimate Slight Decrease (Normal)
[2019-10-26 13:55] LABS: Bilirubin,Urine Negative (Negative); Blood,Urine Negative (Negative); Clarity,Urine Clear (Clear); Color,Urine Yellow (Yellow); Glucose,Urine (UA) Normal (Normal); Hyaline Casts,Urine Few per lpf (None Seen); Ketones,Urine Negative (Negative); Leukocyte Esterase,Urine Negative (Negative); Mucus,Urine Many per lpf (None-Few); Nitrite,Urine Negative (Negative); PH,Urine 5.5 pH Units (5.0-8.0); Protein,Urine 70 mg/dL (Neg-Trace); Specific Gravity,Urine 1.027 (1.010-1.025); Squamous Epithelial Cell,Urine Few per hpf (None-Few); Urobilinogen,Urine Normal (Normal)
[2019-10-26] MEDS ORDERED: 0.9 % Sodium Chloride 250 ML ONE (14:09)
[2019-10-26 15:24] LABS: Alanine Aminotransferase 14 Units/L (7-52); Albumin 3.1 g/dL (3.5-5.7); Albumin/Globulin Ratio 1.6 (1.1-2.2); Alkaline Phosphatase 204 Units/L (34-104); Aspartate Amino Transferase 14 Units/L (13-39); Bilirubin,Direct 0.2 mg/dL (0.0-0.2); Bilirubin,Indirect 0.4 mg/dL (0.0-1.0); Bilirubin,Total 0.6 mg/dL (0.3-1.0); Total Protein 5.1 g/dL (6.4-8.9)
[2019-10-26] MEDS ORDERED: Naloxone 0.4 MG/ML INJ IVP PRN (15:32)
[2019-10-26 15:37] LABS: Thyroid Stimulating Hormone 7.758 mcIU/mL (0.340-5.600)
[2019-10-26 15:39] LABS: Triiodothyronine (T3) Free 2.38 pg/mL (2.50-3.90)
[2019-10-26 15:57] LABS: Folate > 22.3 ng/mL (3.0-16.0); Vitamin B12 1483 pg/mL (250-1100)
[2019-10-26] MEDS ORDERED: ALPRAZolam 0.5 MG TABLET PO PRN (17:35)
[2019-10-26] MEDS: *HR* OxyCODONE ER (12 HR) 10 MG TABLET PO SCH (18:14)
[2019-10-26 19:28] LABS: Mean Corpuscular Volume 94.2 fL (83.0-100.0)
[2019-10-26 19:30] LABS: Hematocrit 24.5 % (35.3-44.9); Immature Platelets 6.1 % (1.1-6.1); Mean Corpuscular HGB Conc 32.7 g/dL (31.6-35.5); Mean Corpuscular Hemoglobin 30.8 pg (28.0-33.3); Mean Platelet Volume 11.1 fL (9.4-12.4); Red Cell Distribution Width 14.9 % (11.5-14.5); White Blood Count 4.9 K/mcL (4.3-11.1)
[2019-10-26 19:34] LABS: Platelet Count 67 K/mcL (140-400)
[2019-10-26 19:53] LABS: Eosinophils # 0.3 K/mcL (0.0-0.6); Lymphocytes # 1.1 K/mcL (0.6-4.6); Monocytes # 0.6 K/mcL (0.0-1.3); Neutrophils # 2.9 K/mcL (1.6-8.9); Platelet Estimate Decreased (Normal); Reactive Lymphocytes Present (Not Present); Toxic Granulation Present (Not Present)
[2019-10-26] MEDS: *HR* HYDROmorphone 4 MG TABLET PO PRN (20:08)
[2019-10-26] MEDS: Gabapentin 400 MG CAPSULE PO SCH (20:08)
[2019-10-27 01:14] LABS: Adenovirus F 40/41 PCR Not detected (Not detect); Astrovirus PCR Not detected (Not detect); C.difficile Toxin A/B Gene PCR Not detected (Not detect); Campylobacter by PCR Not detected (Not detect); Cryptosporidium by PCR Not detected (Not detect); Cyclospora cayetanensis PCR Not detected (Not detect); E. coli O157 by PCR Not detected (Not detect); Entamoeba histolytica PCR Not detected (Not detect); Enteroaggregative E.coli(EAEC) Not detected (Not detect); Enteropathogenic E.coli(EPEC) DETECTED (Not detect); Enterotoxigenic E.coli (ETEC) Not detected (Not detect); Giardia lamblia PCR Not detected (Not detect); Norovirus GI/GII PCR Not detected (Not detect); Plesiomonas shigelloides PCR Not detected (Not detect); Rotavirus A PCR Not detected (Not detect); Salmonella PCR Not detected (Not detect); Sapovirus PCR Not detected (Not detect); Shig/EnteroinvasiveE coli EIEC Not detected (Not detect); Shigalike tox-prod E coli STEC Not detected (Not detect); Vibrio PCR Not detected (Not detect); Vibrio cholerae PCR Not detected (Not detect); Yersinia enterocolitica PCR Not detected (Not detect)
[2019-10-27] MEDS: *HR* HYDROmorphone 4 MG TABLET PO PRN ×3 (04:06→20:11)
[2019-10-27] MEDS: *HR* OxyCODONE ER (12 HR) 10 MG TABLET PO SCH ×2 (05:57→17:30)
[2019-10-27 07:43] LABS: Hemoglobin 7.9 g/dL (11.5-15.4)
[2019-10-27 07:45] LABS: Immature Platelets 5.6 % (1.1-6.1); Mean Corpuscular HGB Conc 32.9 g/dL (31.6-35.5); Mean Corpuscular Volume 94.1 fL (83.0-100.0); Mean Platelet Volume 11.1 fL (9.4-12.4); Nucleated Red Blood Cells 0.5 /100 WBC (0); Red Blood Count 2.55 M/mcL (3.82-4.97); Red Cell Distribution Width 15.1 % (11.5-14.5); White Blood Count 5.6 K/mcL (4.3-11.1)
[2019-10-27 08:04] LABS: BUN/Creatinine Ratio 22 (6-26); Blood Urea Nitrogen 10 mg/dL (6-20); Calcium 7.7 mg/dL (8.6-10.3); Carbon Dioxide 27 mEq/L (23-29); Chloride 104 mEq/L (98-107); Glucose 93 mg/dL (70-105); Osmolality,Calculated 281 (280-300); Potassium 2.8 mEq/L (3.5-5.1); Sodium 136 mEq/L (136-145); eGFR For African Americans > 60 (> 60); eGFR For Non-African Americans > 60 (> 60)
[2019-10-27] MEDS: Aspirin Enteric Coated 81 MG Tablet PO SCH (08:13)
[2019-10-27] MEDS: Famotidine 20 MG TABLET PO SCH (08:13)
[2019-10-27 08:14] LABS: Platelet Count 66 K/mcL (140-400)
[2019-10-27] MEDS: Gabapentin 400 MG CAPSULE PO SCH ×3 (08:15→20:09)
[2019-10-27 09:42] LABS: Lymphocytes # 1.5 K/mcL (0.6-4.6); Monocytes # 0.6 K/mcL (0.0-1.3); Neutrophils # 3.6 K/mcL (1.6-8.9); Platelet Estimate Decreased (Normal)
[2019-10-27] MEDS: *HR* HYDROmorphone PF 0.5 MG/0.5 ML SYRINGE IVP PRN (11:46)
[2019-10-27] MEDS ORDERED: Azithromycin 250 MG TABLET PO ONE (13:11)
[2019-10-27] MEDS ORDERED: Potassium Effervescent 25 MEQ TABLET.EFF PO ONE (14:11)
[2019-10-27 17:03] LABS: Magnesium 1.6 mg/dL (1.6-2.6); Potassium 2.9 mEq/L (3.5-5.1)
[2019-10-27] MEDS ORDERED: Magnesium Oxide 400 MG TABLET PO ONE (18:05)
[2019-10-27] MEDS ORDERED: Potassium Chloride Elixir 20 MEQ/15 ML UDC PO ONE (21:00)
[2019-10-27] MEDS: *HR* Promethazine 25 MG/ML VIAL IVP PRN (22:18)
[2019-10-28] MEDS: *HR* HYDROmorphone 4 MG TABLET PO PRN ×3 (02:11→15:04)
[2019-10-28 02:26] LABS: Hematocrit 25.6 % (35.3-44.9); Hemoglobin 8.5 g/dL (11.5-15.4); Mean Corpuscular HGB Conc 33.2 g/dL (31.6-35.5); Nucleated Red Blood Cells 0.2 /100 WBC (0)
[2019-10-28 02:27] LABS: Immature Platelets 5.8 % (1.1-6.1); Mean Corpuscular Hemoglobin 30.9 pg (28.0-33.3); Mean Corpuscular Volume 93.1 fL (83.0-100.0); Mean Platelet Volume 11.1 fL (9.4-12.4); Red Blood Count 2.75 M/mcL (3.82-4.97); Red Cell Distribution Width 15.6 % (11.5-14.5); White Blood Count 8.6 K/mcL (4.3-11.1)
[2019-10-28 02:42] LABS: Platelet Count 91 K/mcL (140-400)
[2019-10-28 02:45] LABS: BUN/Creatinine Ratio 19 (6-26); Blood Urea Nitrogen 9 mg/dL (6-20); Carbon Dioxide 26 mEq/L (23-29); Chloride 100 mEq/L (98-107); Glucose 92 mg/dL (70-105); Magnesium 1.6 mg/dL (1.6-2.6); Osmolality,Calculated 280 (280-300); Potassium 3.4 mEq/L (3.5-5.1); Sodium 136 mEq/L (136-145); eGFR For African Americans > 60 (> 60); eGFR For Non-African Americans > 60 (> 60)
[2019-10-28 03:03] LABS: Lymphocytes # 1.9 K/mcL (0.6-4.6); Monocytes # 0.3 K/mcL (0.0-1.3); Neutrophils # 6.4 K/mcL (1.6-8.9)
[2019-10-28 03:04] LABS: Platelet Estimate Decreased (Normal)
[2019-10-28] MEDS: *HR* Promethazine 25 MG/ML VIAL IVP PRN (04:22)
[2019-10-28] MEDS: *HR* OxyCODONE ER (12 HR) 10 MG TABLET PO SCH ×2 (05:32→18:29)
[2019-10-28] MEDS: Famotidine 20 MG TABLET PO SCH (07:52)
[2019-10-28] MEDS: Gabapentin 400 MG CAPSULE PO SCH ×2 (07:52→16:03)
[2019-10-28] MEDS: Aspirin Enteric Coated 81 MG Tablet PO SCH (07:52)
[2019-10-28] MEDS: Potassium Chloride Elixir 20 MEQ/15 ML UDC PO SCH ×2 (07:52→11:10)
[2019-10-28] MEDS: *HR* HYDROmorphone PF 0.5 MG/0.5 ML SYRINGE IVP PRN ×2 (09:48→15:56)
[2019-10-28 17:53] VITALS: BP 149/81
[2019-10-29] MEDS ORDERED: carvediloL 6.25 MG TABLET PO SCH (08:00)
== END 2019-10-28 19:21 | disposition home or self-care (01) ==
LOC: 3ANU 10:50 → EMEROOARM 10:50 → 3ANU 16:29
PROVIDERS: ADMIT Internal Medicine; ATTEND Internal Medicine

== ENCOUNTER 2019-11-05 08:00 | Observation (INO) ==
[2019-11-05] MEDS ORDERED: *HR* HYDROmorphone (PF) 1 MG/ML SYRINGE IVP ONE ×2 (08:12→09:12)
[2019-11-05] MEDS ORDERED: Ondansetron 4 MG/2 ML VIAL IVP ONE (08:12)
[2019-11-05] MEDS ORDERED: Naloxone 0.4 MG/ML INJ IVP PRN (08:12)
[2019-11-05] MEDS ORDERED: *HR* Dextrose 50 % in Water (Vial) 50 ML VIAL IVP PRN (08:14)
[2019-11-05] MEDS ORDERED: D5% in Water 1,000 ML IVC PRN (08:14)
[2019-11-05] MEDS ORDERED: Dextrose Gel 15 GM/37.5 ML TUBE PO PRN ×2 (08:14)
[2019-11-05] MEDS ORDERED: D5% in Lactated Ringers 1,000 ML IVC SCH (08:15)
[2019-11-05] MEDS ORDERED: *HR* HYDROmorphone 20 MG/20 ML PCA IVC PRN (08:15)
[2019-11-05] MEDS ORDERED: *HR* Metoprolol 5 MG/5 ML VIAL IVP PRN (08:51)
[2019-11-05] MEDS ORDERED: Albuterol 2.5 MG/3 ML NEBULIZER IH PRN (08:57)
[2019-11-05] MEDS ORDERED: ALPRAZolam 0.5 MG TABLET PO PRN (09:00)
[2019-11-05] MEDS: Pantoprazole 40 MG VIAL IVP SCH (11:43)
[2019-11-05] MEDS: Gabapentin 400 MG CAPSULE PO SCH ×3 (11:44→20:06)
[2019-11-05] MEDS: Insulin LISPRO 300 UNITS/3 ML VIAL SQ SCH ×2 (12:07→18:46)
[2019-11-05] MEDS: Ondansetron 4 MG/2 ML VIAL IVP PRN (14:48)
[2019-11-05] MEDS: *HR* Heparin 5,000 UNIT/ML VIAL SQ SCH ×3 (14:49→20:06)
[2019-11-05] MEDS: carvediloL 6.25 MG TABLET PO SCH (18:49)
[2019-11-06] MEDS ORDERED: Potassium Chloride 20 MEQ, Lidocaine 1% 2 ML in 0.9 % Sodium Chloride 250 ML IVPB ONE (00:17)
[2019-11-06] MEDS ORDERED: 0.9 % Sodium Chloride 1,000 ML IVC SCH (00:30)
[2019-11-06] MEDS: Insulin LISPRO 300 UNITS/3 ML VIAL SQ SCH ×3 (01:07→15:23)
[2019-11-06 05:13] LABS: Basophils # 0.1 K/mcL (0.0-0.2); Basophils % 0.7 %; Eosinophils # 0.2 K/mcL (0.0-0.6); Eosinophils % 1.2 %; Hematocrit 23.6 % (35.3-44.9); Immature Granulocytes % 1.2 % (0-4); Lymphocytes # 1.2 K/mcL (0.6-4.6); Lymphocytes % 8.4 %; Mean Corpuscular HGB Conc 32.2 g/dL (31.6-35.5); Mean Corpuscular Hemoglobin 30.6 pg (28.0-33.3); Mean Corpuscular Volume 95.2 fL (83.0-100.0); Mean Platelet Volume 9.9 fL (9.4-12.4); Monocytes # 1.4 K/mcL (0.0-1.3); Neutrophils # 10.7 K/mcL (1.6-8.9); Nucleated Red Blood Cells 0.2 /100 WBC (0); Platelet Count 161 K/mcL (140-400); Red Blood Count 2.48 M/mcL (3.82-4.97); Red Cell Distribution Width 15.4 % (11.5-14.5); Segmented Neutrophils % 78.5 %; White Blood Count 13.7 K/mcL (4.3-11.1)
[2019-11-06 05:14] LABS: Hemoglobin 7.6 g/dL (11.5-15.4)
[2019-11-06 05:15] LABS: INR 1.3; Prothrombin Time 14.4 Seconds (9.4-12.1)
[2019-11-06 05:17] LABS: Activated Partial Thrombo Time 31.2 Seconds (26.0-36.0)
[2019-11-06 05:29] LABS: BUN/Creatinine Ratio 21 (6-26); Blood Urea Nitrogen 8 mg/dL (6-20); Carbon Dioxide 29 mEq/L (23-29); Chloride 101 mEq/L (98-107); Glucose 111 mg/dL (70-105); Magnesium 1.5 mg/dL (1.6-2.6); Osmolality,Calculated 283 (280-300); Phosphorous 2.5 mg/dL (2.7-4.5); Sodium 137 mEq/L (136-145); eGFR For African Americans > 60 (> 60); eGFR For Non-African Americans > 60 (> 60)
[2019-11-06] MEDS: *HR* Heparin 5,000 UNIT/ML VIAL SQ SCH ×2 (05:46→14:49)
[2019-11-06] MEDS ORDERED: Potassium Chloride Elixir 20 MEQ/15 ML UDC PO ONE (06:00)
[2019-11-06] MEDS: Ondansetron 4 MG/2 ML VIAL IVP PRN (06:33)
[2019-11-06] MEDS ORDERED: Potassium Chloride 40 MEQ, Lidocaine 1% 2 ML in 0.9 % Sodium Chloride 500 ML IVPB ONE (07:37)
[2019-11-06] MEDS: Gabapentin 400 MG CAPSULE PO SCH ×2 (08:21→14:50)
[2019-11-06] MEDS: carvediloL 6.25 MG TABLET PO SCH (08:21)
[2019-11-06] MEDS: Pantoprazole 40 MG VIAL IVP SCH (08:22)
[2019-11-06] MEDS: methocarbamoL 750 MG TABLET PO SCH ×2 (08:22→14:50)
[2019-11-06] MEDS ORDERED: Aspirin Enteric Coated 81 MG Tablet PO SCH (09:00)
[2019-11-06] MEDS ORDERED: Famotidine 20 MG TABLET PO SCH (09:00)
[2019-11-06] MEDS ORDERED: *HR* HYDROmorphone 4 MG TABLET PO PRN (09:14)
[2019-11-06] MEDS ORDERED: *HR* OxyCODONE ER (12 HR) 10 MG TABLET PO SCH (09:15)
[2019-11-06 11:00] VITALS: BP 135/86
== END 2019-11-06 15:28 | disposition home or self-care (01) ==
LOC: 2ANU 08:00 → EMEROOARM 08:00 → SUATTDRO 08:12 → 2ANU 09:45
PROVIDERS: ADMIT Internal Medicine; ATTEND Family Medicine

== ENCOUNTER 2019-11-17 03:56 | Inpatient (IN) ==
[2019-11-17] MEDS ORDERED: Isovue-370 500 ML BOTTLE IVP ONE ×2 (04:40→19:45)
[2019-11-17] MEDS ORDERED: Ondansetron 4 MG/2 ML VIAL IVP ONE (04:41)
[2019-11-17] MEDS ORDERED: 0.9 % Sodium Chloride 500 ML IV ONE (04:42)
[2019-11-17] MEDS ORDERED: Famotidine 20 MG/2 ML VIAL IVP ONE (04:42)
[2019-11-17 05:42] LABS: Basophils # 0.1 K/mcL (0.0-0.2); Basophils % 0.5 %; Eosinophils # 0.3 K/mcL (0.0-0.6); Hematocrit 27.2 % (35.3-44.9); Hemoglobin 8.7 g/dL (11.5-15.4); Immature Granulocytes % 0.9 % (0-4); Lymphocytes # 1.1 K/mcL (0.6-4.6); Mean Corpuscular Hemoglobin 30.6 pg (28.0-33.3); Mean Corpuscular Volume 95.8 fL (83.0-100.0); Mean Platelet Volume 11.4 fL (9.4-12.4); Monocytes # 1.2 K/mcL (0.0-1.3); Monocytes % 8.6 %; Neutrophils # 10.6 K/mcL (1.6-8.9); Nucleated Red Blood Cells 0.2 /100 WBC (0); Platelet Count 117 K/mcL (140-400); Red Blood Count 2.84 M/mcL (3.82-4.97); Red Cell Distribution Width 15.7 % (11.5-14.5); White Blood Count 13.3 K/mcL (4.3-11.1)
[2019-11-17 05:51] LABS: Alanine Aminotransferase 7 Units/L (7-52); Albumin 2.8 g/dL (3.5-5.7); Albumin/Globulin Ratio 0.9 (1.1-2.2); Alkaline Phosphatase 273 Units/L (34-104); Aspartate Amino Transferase 21 Units/L (13-39); BUN/Creatinine Ratio 30 (6-26); Bilirubin,Direct 0.4 mg/dL (0.0-0.2); Bilirubin,Indirect 0.8 mg/dL (0.0-1.0); Bilirubin,Total 1.2 mg/dL (0.3-1.0); Blood Urea Nitrogen 13 mg/dL (6-20); Calcium 8.5 mg/dL (8.6-10.3); Carbon Dioxide 33 mEq/L (23-29); Chloride 102 mEq/L (98-107); Glucose 119 mg/dL (70-105); Osmolality,Calculated 295 (280-300); Potassium 2.9 mEq/L (3.5-5.1); Sodium 142 mEq/L (136-145); Total Protein 5.8 g/dL (6.4-8.9); Uric Acid 4.5 mg/dL (2.3-7.6); eGFR For African Americans > 60 (> 60); eGFR For Non-African Americans > 60 (> 60)
[2019-11-17] MEDS ORDERED: *HR* HYDROmorphone (PF) 1 MG/ML SYRINGE IVP ONE (06:09)
[2019-11-17] MEDS ORDERED: Cefepime HCl 1,000 MG in 0.9 % Sodium Chloride Mini Bag 100 ML IVPB ONE (07:09)
[2019-11-17] MEDS ORDERED: MetroNIDAZOLE 500 MG/100 ML 500 MG/100 ML BAG IVPB ONE (07:10)
[2019-11-17 07:20] LABS: Bacteria,Urine Many per hpf (None-Few); Bilirubin,Urine Negative (Negative); Blood,Urine Trace (Negative); Clarity,Urine Turbid (Clear); Color,Urine Light-Orange (Yellow); Glucose,Urine (UA) Normal (Normal); Ketones,Urine Negative (Negative); Leukocyte Esterase,Urine Large (Negative); Mucus,Urine Few per lpf (None-Few); Nitrite,Urine Negative (Negative); Protein,Urine 70 mg/dL (Neg-Trace); Specific Gravity,Urine > 1.030 (1.010-1.025); Squamous Epithelial Cell,Urine Few per hpf (None-Few); WBC,Urine TNTC per hpf (0-3)
[2019-11-17] MEDS ORDERED: *HR* HYDROmorphone 2 MG/ML SYRINGE IVP ONE (07:29)
[2019-11-17] MEDS ORDERED: Naloxone 0.4 MG/ML INJ IVP PRN (07:51)
[2019-11-17] MEDS ORDERED: Potassium Chloride 40 MEQ in D5% in 0.9% NACL 1,000 ML IVC SCH (08:00)
[2019-11-17 09:13] LABS: Adenovirus Not Detected (Not Detect); Bordetella Pertussis Not Detected (Not Detect); Chlamydophila pneumoniae Not Detected (Not Detect); Coronavirus 229E Not Detected (Not Detect); Coronavirus HKU1 Not Detected (Not Detect); Coronavirus NL63 Not Detected (Not Detect); Coronavirus OC43 Not Detected (Not Detect); Human Metapneumovirus Not Detected (Not Detect); Human Rhinovirus/Enterovirus Not Detected (Not Detect); Influenza A Subtype 2009 H1 Not Detected (Not Detect); Influenza B Not Detected (Not Detect); Mycoplasma pneumoniae Not Detected (Not Detect); Parainfluenza Virus 1 Not Detected (Not Detect); Parainfluenza Virus 2 Not Detected (Not Detect); Parainfluenza Virus 3 Not Detected (Not Detect); Parainfluenza Virus 4 Not Detected (Not Detect); Respiratory Syncytial Virus Not Detected (Not Detect)
[2019-11-17] MEDS ORDERED: Famotidine 20 MG TABLET PO PRN (09:28)
[2019-11-17] MEDS: *HR* HYDROmorphone 4 MG TABLET PO PRN (12:34)
[2019-11-17] MEDS: *HR* Promethazine 25 MG/ML VIAL IVP PRN ×2 (12:40→18:44)
[2019-11-17] MEDS: ALPRAZolam 0.5 MG TABLET PO PRN (12:40)
[2019-11-17] MEDS ORDERED: Doxycycline 100 MG in 0.9 % Sodium Chloride Mini Bag 100 ML IVPB SCH (18:00)
[2019-11-17] MEDS: carvediloL 6.25 MG TABLET PO SCH (18:44)
[2019-11-17] MEDS: *HR* Heparin 5,000 UNIT/ML VIAL SQ SCH (18:45)
[2019-11-17] MEDS: Cefepime HCl 1,000 MG in 0.9 % Sodium Chloride Mini Bag 100 ML IVPB SCH (18:45)
[2019-11-17 20:01] LABS: ABG Base Excess 5 mEq/L (-2 to 3); ABG HCO3 29 mEq/L (21-27); ABG Oxygen Saturation 100 % (95-98); ABG PCO2 42 mmHg (35-45); ABG PH 7.45 pH Units (7.32-7.45); ABG PO2 157 mmHg (85-104); ABG TCO2 31 mEq/L (20-26)
[2019-11-17 21:06] LABS: Magnesium 1.7 mg/dL (1.6-2.6)
[2019-11-17] MEDS: *HR* OxyCODONE ER (12 HR) 10 MG TABLET PO SCH (22:02)
[2019-11-18 04:41] LABS: Basophils # 0.1 K/mcL (0.0-0.2); Basophils % 0.4 %; Eosinophils # 0.1 K/mcL (0.0-0.6); Eosinophils % 1.1 %; Hematocrit 26.2 % (35.3-44.9); Hemoglobin 8.3 g/dL (11.5-15.4); Immature Granulocytes % 0.8 % (0-4); Lymphocytes % 8.3 %; Mean Corpuscular HGB Conc 31.7 g/dL (31.6-35.5); Mean Corpuscular Hemoglobin 29.7 pg (28.0-33.3); Mean Corpuscular Volume 93.9 fL (83.0-100.0); Mean Platelet Volume 11.4 fL (9.4-12.4); Monocytes % 7.8 %; Nucleated Red Blood Cells 0.2 /100 WBC (0); Platelet Count 111 K/mcL (140-400); Red Blood Count 2.79 M/mcL (3.82-4.97); Red Cell Distribution Width 15.6 % (11.5-14.5); Segmented Neutrophils % 81.6 %; White Blood Count 12.3 K/mcL (4.3-11.1)
[2019-11-18 04:45] LABS: INR 1.2; Prothrombin Time 13.5 Seconds (9.4-12.1)
[2019-11-18 04:59] LABS: Albumin 2.8 g/dL (3.5-5.7); BUN/Creatinine Ratio 31 (6-26); Bilirubin,Total 1.3 mg/dL (0.3-1.0); Blood Urea Nitrogen 12 mg/dL (6-20); Calcium 8.3 mg/dL (8.6-10.3); Carbon Dioxide 30 mEq/L (23-29); Chloride 108 mEq/L (98-107); Globulin 2.9 g/dL (2.4-3.5); Glucose 131 mg/dL (70-105); Magnesium 1.7 mg/dL (1.6-2.6); Osmolality,Calculated 298 (280-300); Potassium 3.2 mEq/L (3.5-5.1); Sodium 143 mEq/L (136-145); Total Protein 5.7 g/dL (6.4-8.9); eGFR For African Americans > 60 (> 60); eGFR For Non-African Americans > 60 (> 60)
[2019-11-18] MEDS: Cefepime HCl 1,000 MG in 0.9 % Sodium Chloride Mini Bag 100 ML IVPB SCH ×2 (06:06→17:13)
[2019-11-18] MEDS: *HR* Heparin 5,000 UNIT/ML VIAL SQ SCH ×3 (06:06→17:20)
[2019-11-18] MEDS ORDERED: Doxycycline 100 MG in 0.9 % Sodium Chloride Mini Bag 100 ML IVPB SCH (10:00)
[2019-11-18] MEDS ORDERED: *HR* HYDROmorphone (PF) 1 MG/ML SYRINGE IVP ONE (10:32)
[2019-11-18] MEDS: Aspirin Enteric Coated 81 MG Tablet PO SCH (12:21)
[2019-11-18] MEDS: Gabapentin 400 MG CAPSULE PO SCH (12:21)
[2019-11-18] MEDS: carvediloL 6.25 MG TABLET PO SCH ×2 (12:22→16:54)
[2019-11-18] MEDS: *HR* OxyCODONE ER (12 HR) 10 MG TABLET PO SCH ×2 (12:23→20:01)
[2019-11-18 13:50] LABS: Appearance of Peritoneal Fl CLEAR (Clear); Appearance of Pleural Fl Clear (Clear)
[2019-11-18 13:56] LABS: RBC,Peritoneal Fluid < 2000 RBC/mcL
[2019-11-18 13:58] LABS: RBC,Pleural Fluid < 2000 RBC/mcL
[2019-11-18 14:04] LABS: Amylase,Peritoneal Fluid < 10 Units/L (No Ref Range); Glucose,Peritoneal Fluid 114 mg/dL (No Ref Range); Glucose,Pleural Fluid 125 mg/dL (No Ref Range); LDH,Peritoneal Fluid 125 Units/L (No Ref Range); LDH,Pleural Fluid 70 Units/L (No Ref Range); Total Protein,Peritoneal Fluid < 3.0 g/dL; Total Protein,Pleural Fluid < 3.0 g/dL
[2019-11-18 14:43] LABS: Basophils,Pleural Fluid 0 %; Eosinophils,Pleural Fluid 0 %
[2019-11-18 14:45] LABS: Basophils,Peritoneal Fluid 0 %; Eosinophils,Peritoneal Fluid 0 %
[2019-11-18] MEDS: *HR* HYDROmorphone (PF) 1 MG/ML SYRINGE IVP PRN (16:55)
[2019-11-18] MEDS: *HR* HYDROmorphone 4 MG TABLET PO PRN (21:36)
[2019-11-18] MEDS ORDERED: *HR* Heparin 5,000 UNIT/ML VIAL IVP PRN ×2 (23:13)
[2019-11-18] MEDS ORDERED: *HR* Heparin 5,000 UNIT/ML VIAL IVP ONE (23:13)
[2019-11-18] MEDS ORDERED: Heparin 25,000UNIT/250ML 1/2NS 25,000 UNIT/250 ML IV.SOLN IVC SCH (23:15)
[2019-11-19] MEDS: *HR* HYDROmorphone (PF) 1 MG/ML SYRINGE IVP PRN ×3 (00:03→22:08)
[2019-11-19] MEDS: *HR* HYDROmorphone 4 MG TABLET PO PRN ×2 (03:54→23:51)
[2019-11-19 05:54] LABS: Hemoglobin 7.6 g/dL (11.5-15.4); Mean Corpuscular HGB Conc 31.7 g/dL (31.6-35.5); Mean Corpuscular Hemoglobin 29.6 pg (28.0-33.3); Mean Corpuscular Volume 93.4 fL (83.0-100.0); Mean Platelet Volume 11.4 fL (9.4-12.4); Platelet Count 101 K/mcL (140-400); Red Blood Count 2.57 M/mcL (3.82-4.97); Red Cell Distribution Width 15.3 % (11.5-14.5); White Blood Count 11.2 K/mcL (4.3-11.1)
[2019-11-19] MEDS ORDERED: Cefepime HCl 1,000 MG in Water for inj. (sterile) 10 ML IVP SCH (06:00)
[2019-11-19 06:13] LABS: BUN/Creatinine Ratio 34 (6-26); Blood Urea Nitrogen 11 mg/dL (6-20); Calcium 8.1 mg/dL (8.6-10.3); Carbon Dioxide 28 mEq/L (23-29); Chloride 105 mEq/L (98-107); Glucose 106 mg/dL (70-105); Osmolality,Calculated 292 (280-300); Potassium 2.7 mEq/L (3.5-5.1); Sodium 141 mEq/L (136-145); eGFR For African Americans > 60 (> 60); eGFR For Non-African Americans > 60 (> 60)
[2019-11-19 07:04] LABS: Heparin anti-factor XA UFH 0.61 IU/mL (0.30-0.70); INR 1.3
[2019-11-19] MEDS: carvediloL 6.25 MG TABLET PO SCH ×2 (09:02→17:39)
[2019-11-19] MEDS: Aspirin Enteric Coated 81 MG Tablet PO SCH (09:03)
[2019-11-19] MEDS: Gabapentin 400 MG CAPSULE PO SCH (09:04)
[2019-11-19] MEDS: *HR* OxyCODONE ER (12 HR) 10 MG TABLET PO SCH (09:04)
[2019-11-19] MEDS: *HR* Rivaroxaban 15 MG TABLET PO SCH ×2 (09:12→22:04)
[2019-11-19] MEDS ORDERED: Haloperidol Lactate 5 MG/ML VIAL IVP PRN (10:19)
[2019-11-19 12:53] LABS: Hematocrit 33.1 % (35.3-44.9)
[2019-11-19 12:55] LABS: Hemoglobin 9.4 g/dL (11.5-15.4)
[2019-11-19] MEDS: Ertapenem 1,000 MG in 0.9 % Sodium Chloride Mini Bag 100 ML IVPB SCH (14:48)
[2019-11-19] MEDS ORDERED: haloperidoL 1 MG TABLET PO SCH (15:00)
[2019-11-19] MEDS ORDERED: *HR* Promethazine 25 MG/ML VIAL IVP ONE (15:46)
[2019-11-19] MEDS ORDERED: *HR* OxyCODONE ER (12 HR) 10 MG TABLET PO SCH (16:00)
[2019-11-19] MEDS: Haloperidol Oral Conc 10 MG/5 ML UDC PO SCH ×2 (17:34→22:04)
[2019-11-19] MEDS: ALPRAZolam 0.5 MG TABLET PO PRN (19:28)
[2019-11-20] MEDS: *HR* HYDROmorphone (PF) 1 MG/ML SYRINGE IVP PRN ×4 (03:55→21:27)
[2019-11-20 04:15] LABS: Hematocrit 23.3 % (35.3-44.9); Mean Corpuscular HGB Conc 32.6 g/dL (31.6-35.5); Mean Corpuscular Hemoglobin 30.5 pg (28.0-33.3); Mean Corpuscular Volume 93.6 fL (83.0-100.0); Mean Platelet Volume 11.5 fL (9.4-12.4); Platelet Count 110 K/mcL (140-400); Red Blood Count 2.49 M/mcL (3.82-4.97); Red Cell Distribution Width 15.4 % (11.5-14.5); White Blood Count 11.1 K/mcL (4.3-11.1)
[2019-11-20 04:17] LABS: Hemoglobin 7.6 g/dL (11.5-15.4)
[2019-11-20 04:34] LABS: BUN/Creatinine Ratio 38 (6-26); Blood Urea Nitrogen 14 mg/dL (6-20); Calcium 8.1 mg/dL (8.6-10.3); Carbon Dioxide 25 mEq/L (23-29); Chloride 105 mEq/L (98-107); Glucose 94 mg/dL (70-105); Osmolality,Calculated 292 (280-300); Potassium 2.9 mEq/L (3.5-5.1); Sodium 141 mEq/L (136-145); eGFR For African Americans > 60 (> 60); eGFR For Non-African Americans > 60 (> 60)
[2019-11-20] MEDS: Haloperidol Oral Conc 10 MG/5 ML UDC PO SCH ×3 (09:29→21:29)
[2019-11-20] MEDS: Ertapenem 1,000 MG in 0.9 % Sodium Chloride Mini Bag 100 ML IVPB SCH (09:31)
[2019-11-20] MEDS: carvediloL 6.25 MG TABLET PO SCH ×2 (09:50→17:33)
[2019-11-20] MEDS: Gabapentin 400 MG CAPSULE PO SCH (09:51)
[2019-11-20] MEDS: *HR* Rivaroxaban 15 MG TABLET PO SCH ×2 (09:51→21:29)
[2019-11-20] MEDS: Aspirin Enteric Coated 81 MG Tablet PO SCH (09:51)
[2019-11-20] MEDS ORDERED: Ondansetron 4 MG/2 ML VIAL IVP ONE (09:55)
[2019-11-20 18:12] LABS: BUN/Creatinine Ratio 45 (6-26); Blood Urea Nitrogen 17 mg/dL (6-20); Calcium 8.5 mg/dL (8.6-10.3); Carbon Dioxide 28 mEq/L (23-29); Chloride 105 mEq/L (98-107); Glucose 108 mg/dL (70-105); Magnesium 1.8 mg/dL (1.6-2.6); Osmolality,Calculated 294 (280-300); Potassium 2.9 mEq/L (3.5-5.1); Sodium 141 mEq/L (136-145); Troponin I < 0.03 ng/mL (< 0.04); eGFR For African Americans > 60 (> 60); eGFR For Non-African Americans > 60 (> 60)
[2019-11-20] MEDS ORDERED: Potassium Chloride 40 MEQ, Lidocaine 1% 2 ML in 0.9 % Sodium Chloride 500 ML IVPB ONE (18:39)
[2019-11-21] MEDS: Haloperidol Lactate 5 MG/ML VIAL IVP PRN ×2 (02:18→12:45)
[2019-11-21] MEDS: *HR* HYDROmorphone (PF) 1 MG/ML SYRINGE IVP PRN ×5 (02:19→20:55)
[2019-11-21 04:39] LABS: Basophils % 0.4 %; Eosinophils # 0.1 K/mcL (0.0-0.6); Eosinophils % 0.8 %; Hematocrit 23.5 % (35.3-44.9); Hemoglobin 7.5 g/dL (11.5-15.4); Immature Granulocytes % 1.1 % (0-4); Lymphocytes # 1.2 K/mcL (0.6-4.6); Lymphocytes % 10.7 %; Mean Corpuscular HGB Conc 31.9 g/dL (31.6-35.5); Mean Corpuscular Hemoglobin 29.5 pg (28.0-33.3); Mean Corpuscular Volume 92.5 fL (83.0-100.0); Mean Platelet Volume 10.6 fL (9.4-12.4); Monocytes # 1.2 K/mcL (0.0-1.3); Monocytes % 10.1 %; Neutrophils # 8.7 K/mcL (1.6-8.9); Platelet Count 112 K/mcL (140-400); Red Blood Count 2.54 M/mcL (3.82-4.97); Red Cell Distribution Width 15.6 % (11.5-14.5); Segmented Neutrophils % 76.9 %; White Blood Count 11.4 K/mcL (4.3-11.1)
[2019-11-21 05:00] LABS: % Iron Saturation 75 % (15-50); BUN/Creatinine Ratio 51 (6-26); Blood Urea Nitrogen 20 mg/dL (6-20); Calcium 8.4 mg/dL (8.6-10.3); Carbon Dioxide 24 mEq/L (23-29); Chloride 107 mEq/L (98-107); Glucose 115 mg/dL (70-105); Iron 106 mcg/dL (50-170); Magnesium 1.8 mg/dL (1.6-2.6); Osmolality,Calculated 298 (280-300); Potassium 3.4 mEq/L (3.5-5.1); Sodium 142 mEq/L (136-145); Transferrin 101 mg/dL (203-362); eGFR For African Americans > 60 (> 60); eGFR For Non-African Americans > 60 (> 60)
[2019-11-21 05:13] LABS: Thyroid Stimulating Hormone 28.682 mcIU/mL (0.340-5.600)
[2019-11-21 05:19] LABS: Ferritin > 1500 ng/mL (10-120)
[2019-11-21 05:23] LABS: Folate 14.4 ng/mL (3.0-16.0)
[2019-11-21 05:25] LABS: Vitamin B12 > 1500 pg/mL (250-1100)
[2019-11-21] MEDS: Ertapenem 1,000 MG in 0.9 % Sodium Chloride Mini Bag 100 ML IVPB SCH (08:35)
[2019-11-21] MEDS: Gabapentin 400 MG CAPSULE PO SCH (08:41)
[2019-11-21] MEDS: *HR* Rivaroxaban 15 MG TABLET PO SCH (08:42)
[2019-11-21] MEDS: Haloperidol Oral Conc 10 MG/5 ML UDC PO SCH ×3 (08:42→20:55)
[2019-11-21] MEDS: carvediloL 6.25 MG TABLET PO SCH ×2 (08:42→16:50)
[2019-11-21] MEDS: Aspirin Enteric Coated 81 MG Tablet PO SCH (08:42)
[2019-11-21 08:48] LABS: Triiodothyronine (T3) Free 1.91 pg/mL (2.50-3.90)
[2019-11-21] MEDS: Levothyroxine Sodium 100 MCG VIAL IVP SCH (10:12)
[2019-11-21] MEDS: *HR* Enoxaparin 60 MG/0.6 ML SYRINGE SQ SCH ×2 (10:12→16:52)
[2019-11-21] MEDS: Ondansetron 4 MG/2 ML VIAL IVP SCH (16:49)
[2019-11-22] MEDS: *HR* HYDROmorphone (PF) 1 MG/ML SYRINGE IVP PRN ×3 (00:59→09:02)
[2019-11-22] MEDS: Ondansetron 4 MG/2 ML VIAL IVP SCH ×2 (00:59→08:38)
[2019-11-22] MEDS: *HR* Enoxaparin 60 MG/0.6 ML SYRINGE SQ SCH (05:01)
[2019-11-22 05:25] LABS: Basophils % 0.2 %; Eosinophils # 0.1 K/mcL (0.0-0.6); Eosinophils % 0.5 %; Hemoglobin 7.2 g/dL (11.5-15.4); Immature Granulocytes % 1.2 % (0-4); Lymphocytes # 1.5 K/mcL (0.6-4.6); Lymphocytes % 12.8 %; Mean Corpuscular HGB Conc 31.3 g/dL (31.6-35.5); Mean Corpuscular Hemoglobin 29.3 pg (28.0-33.3); Mean Corpuscular Volume 93.5 fL (83.0-100.0); Mean Platelet Volume 10.7 fL (9.4-12.4); Monocytes % 8.9 %; Neutrophils # 8.6 K/mcL (1.6-8.9); Nucleated Red Blood Cells 0.5 /100 WBC (0); Platelet Count 116 K/mcL (140-400); Red Blood Count 2.46 M/mcL (3.82-4.97); Red Cell Distribution Width 15.6 % (11.5-14.5); Segmented Neutrophils % 76.4 %; White Blood Count 11.3 K/mcL (4.3-11.1)
[2019-11-22 05:45] LABS: BUN/Creatinine Ratio 52 (6-26); Blood Urea Nitrogen 24 mg/dL (6-20); Calcium 8.6 mg/dL (8.6-10.3); Carbon Dioxide 24 mEq/L (23-29); Chloride 107 mEq/L (98-107); Glucose 106 mg/dL (70-105); Magnesium 1.9 mg/dL (1.6-2.6); Osmolality,Calculated 298 (280-300); Potassium 3.5 mEq/L (3.5-5.1); Sodium 142 mEq/L (136-145); eGFR For African Americans > 60 (> 60); eGFR For Non-African Americans > 60 (> 60)
[2019-11-22] MEDS: carvediloL 6.25 MG TABLET PO SCH (08:36)
[2019-11-22] MEDS: Aspirin Enteric Coated 81 MG Tablet PO SCH (08:37)
[2019-11-22] MEDS: Gabapentin 400 MG CAPSULE PO SCH (08:37)
[2019-11-22] MEDS: Ertapenem 1,000 MG in 0.9 % Sodium Chloride Mini Bag 100 ML IVPB SCH (08:39)
[2019-11-22] MEDS: Haloperidol Oral Conc 10 MG/5 ML UDC PO SCH (08:47)
[2019-11-22] MEDS: Levothyroxine Sodium 100 MCG VIAL IVP SCH (09:02)
[2019-11-22 09:05] VITALS: BP 107/66
== END 2019-11-22 14:42 | disposition hospice, home (50) | DRG 871 ==
LOC: EMEROOARM 03:56 → 2ANU 03:56 → SUATTDRO 09:24
PROVIDERS: ADMIT Internal Medicine; ATTEND Pharmacist